=== PATIENT | female | born 1940 | race Caucasian/White ===

== ENCOUNTER → 2016-10-11 | Outpatient (CLI) | payer OTHER, BC ==
[~2016-10-11] MED LIST: BENZ1CAP90 PO; CEPH500C PO; CYCL0.052 OP; DTR/5 PO; METH-848 PO; MYCARDIS; OLME40TA30 PO; OXYB1TAB31 PO; PRLSR20 PO; RANI150T3 PO; SULF800T23 PO; TPZ5 PO
--- NOTE | 2016-10-11 15:22 | MAMMOGRAPHY REPORT ---
BILATERAL DIGITAL SCREENING MAMMOGRAM WITH CAD: 10/11/2016 CLINICAL HISTORY: Routine screening. Patient has no complaints. TECHNIQUE: Bilateral CC and MLO views were obtained. Current study was also evaluated with a Comput er Aided Detection (CAD) system. COMPARISON: Comparison is made to exams dated: 04/28/2015 mammogram, 09/30/2013 mammogram, 08/30/2012 mammogram, 07/12/2011 mammogram, 11/03/2009 mammogram, and 10/29/2009 mammogram - [facility]. BREAST COMPOSITION: The tissue of both breasts is heterogeneously dense, which may obscure small ma sses. FINDINGS: There is a possible cluster of microcalcifications in the 12:00 middle one third of the r ight breast, for which additional spot magnification views are recommended. There are questionable areas of architectural distortion in the lateral, middle and posterior right breast on the CC view f or which additional spot compression tomosynthesis views and possibly ultrasound are recommended. A 10 mm nodular asymmetry in the medial, posterior left breast on the CC view is increasingly conspic uous compared to prior exams. Additional spot compression tomosynthesis views and possibly ultrasou nd are recommended, this is thought to project superiorly on the MLO view. No other suspicious mass, architectural distortion or cluster of suspicious microcalcifications is s een bilaterally. IMPRESSION: ACR BI-RADS CATEGORY 0: INCOMPLETE EVALUATION: NEED ADDITIONAL IMAGING EVALUATION The questionable areas of architectural distortion in the lateral right breast, right breast possibl e clustered microcalcifications and nodular asymmetry in the medial posterior left breast need addit ional imaging evaluation. The patient will be called to schedule an appointment. Approximately 10% of breast cancers are not detected with mammography. A negative mammographic repor t should not delay biopsy if a clinically suggestive mass is present. Sallie Hood M.D. ay/:10/11/2016 14:52:09 Helicopter Repairer: Mckenzie COHEN(Hasmukh)(Earl)(GILBERT), [facility] letter sent: Addl Imaging 0 BI-RADS Code: ACR BI-RADS Category 0: Incomplete Evaluation: Need Additional Imaging Evaluation
== END | disposition home or self-care (01) ==
LOC: C.MAMM 13:24
PROVIDERS: ATTEND Nurse Practitioner Family
DX: Z12.31 Encounter for screening mammogram for malignant neoplasm of breast (principal); N64.9 Disorder of breast, unspecified

== ENCOUNTER → 2016-10-19 | Outpatient (CLI) | payer OTHER, BC ==
--- NOTE | 2016-10-19 14:11 | MAMMOGRAPHY REPORT ---
BILATERAL DIGITAL DIAGNOSTIC MAMMOGRAM TOMOSYNTHESIS AND TARGETED LEFT ULTRASOUND: 10/19/2016 CLINICAL HISTORY: Callback from screening mammogram for right breast calcifications, possible right breast architectural distortion, and left breast asymmetry. TECHNIQUE: Breast tomosynthesis in addition to standard 2D mammography was performed. Spot della yong bilateral CC and MLO 2-D and tomosynthesis images and spot magnification right cc and ML views were obtained. COMPARISON: Comparison is made to exams dated: 10/11/2016 mammogram, 04/28/2015 mammogram, 09/30/2013 mammogram, 08/30/2012 mammogram, 07/12/2011 mammogram, and 11/03/2009 mammogram - [facility]. BREAST COMPOSITION: The tissue of both breasts is heterogeneously dense, which may obscure small ma sses. FINDINGS: Spot magnification views of the right breast demonstrate grouped faint punctate and amorph ous calcifications in the right 12:00 breast, with extent measuring approximately 1.7 x 1.9 cm. On the spot compression MLO view there is possible associated architectural distortion at the site of t he calcifications (slice 35/66). The calcifications are indeterminate and stereotactic biopsy is re commended for further evaluation. The other previously described possible areas of architectural distortion in the right lateral breas t did not persist on the additional views, and are compatible with normal fibroglandular tissue. An asymmetry seen within the left medial posterior breast effaces to a baseline appearance on the spot compression views, with appearance of this region similar to prior exams including the 2014 and exams. Targeted ultrasound was performed of the left medial breast in the region of the mammographic asymme try, which shows sonographically normal tissue without evidence of a mass or other suspicious sonogr aphic abnormality. IMPRESSION: ACR BI-RADS CATEGORY 4: SUSPICIOUS, TARGETED ULTRASOUND ACR BI-RADS CATEGORY 4: SUSPICI OUS 1. Grouped faint calcifications in the right 12:00 breast with possible associated architectural di stortion. The calcifications are indeterminate and stereotactic biopsy is recommended for further e valuation. 2. The left medial breast asymmetry effaces to a baseline appearance on the additional views, witho ut corresponding sonographic abnormality evident. The asymmetry is benign and compatible with frieda l fibroglandular tissue. 3. Questionable areas of architectural distortion in the right lateral breast did not persist on th e additional views, and are benign and compatible with normal fibroglandular tissue. A phone call was made to the physician's office to confirm faxed results were received. The patient has been verbally notified of the results. She tentatively scheduled the biopsy before leaving the department. Approximately 10% of breast cancers are not detected with mammography. A negative mammographic repor t should not delay biopsy if a clinically suggestive mass is present. Kassidy Brand M.D. ah/:10/19/2016 12:18:44 Briquetter Operator: Radha COHEN(Hasmukh)(M), [facility] letter sent: Abnormal 4/5 BI-RADS Code: ACR BI-RADS Category 4: Suspicious Ultrasound BI-RADS: ACR BI-RADS Category 4: Suspic ious
== END | disposition home or self-care (01) ==
LOC: C.MAMM 10:09
PROVIDERS: ATTEND Nurse Practitioner Family
DX: N64.89 Other specified disorders of breast (principal); R92.0 Mammographic microcalcification found on diagnostic imaging of breast

== ENCOUNTER → 2016-10-24 | Outpatient (CLI) | payer OTHER, BC ==
--- NOTE | 2016-10-24 13:37 | Discharge Instructions ---
Discharge Instructions Procedure Procedure Date: Oct 24, 2016. Reason for visit: Right Calcifications. Discharge Discharge Date: Oct 24, 2016. Discharge Diagnosis: post right breast stereotactic guided biopsy Medications Restart Stopped Medication(s): May restart Aspirin today Instructions Activity Recommendations: Additional Limitations (see below) Return to School/Work: no limitations Recommended Home Diet: No Limitations Provider Instructions: ACTIVITY RECOMMENDATIONS: * No lifting, pushing, pulling or exercising the affected side for three days. RETURN TO SCHOOL/WORK: * You may return to work/school after the procedure, but do not perform any strenuous activities for 24 to 48 hours. MEDICATIONS: * Tylenol (two 325 mg) every four to six hours if needed for mild pain (if not allergic to Tylenol). DIET: * Resume previous diet. SPECIAL CARE INSTRUCTIONS: * Keep biopsy site dry for 24 hours. May shower after 24 hours, but do not soak (bathe) incision. * May remove Tegaderm (plastic patch) tomorrow AFTER showering. * Leave the steri-strips on for one week. Allow the steri-strips to fall off by themselves. If not off after one week, you may remove them. You may place a Bandaid crosswise over the strips, if desired. * Apply ice 10 minutes on and 10 minutes off as needed. * Wear a bra at bedtime to sleep more comfortably for 2-3 days. * Your referring physician should have the results after approximately 5 to 7 business days. * Call for unusual bleeding, fever, drainage, etc or if you have any questions call [phone] during normal business hours or after hours call Dr Hood, . FOLLOW UP VISIT: Follow-up with Referring Physician as scheduled. Allergies Coded Allergies: Celecoxib (Verified Allergy, Intermediate, HIVES, 06/26/09) Penicillins (Verified Allergy, Intermediate, HIVES, 06/26/09) Uncoded Allergies: BANANAS AND GRAPES -ASTHMA FLARE-UP (Allergy, Unknown, 07/04/02) N (Allergy, Unknown, 07/04/02) NO (Allergy, Unknown, 07/04/02) PCN-HIVES;CELEBREX-HIVES (Allergy, Unknown, 07/04/02) Areli Bernal Recommendations: Call your doctor if: * Temperature above 101 degrees * Pain not relieved by pain medicine ordered * There is increased drainage or redness from any incision * You have any unanswered questions or concerns. Your Doctors Instructions noted above were prepared by provider Sallie Hodo. Patient Signature Section: Patient Instructions Signature Page Alissa Ernst Patient (or Guardian) Signature/Date: I have read and understand the instructions given to me by my caregivers. Caregiver/RN/Doctor Signature/Date: The above-named patient and/or guardian has received patient instructions on this date. + Original Patient Signature Page (only) stays with chart. Please make copy for patient.
--- NOTE | 2016-10-24 16:02 | MAMMOGRAPHY REPORT ---
UNILATERAL RIGHT DIGITAL DIAGNOSTIC MAMMOGRAM: 10/24/2016 CLINICAL HISTORY: Status post stereotactic biopsy of an indeterminate cluster of microcalcifications with possible associated distortion in the 12:00 right breast. Please refer to the report from right breast stereotactic biopsy performed at the same time for full detail. IMPRESSION: POST PROCEDURE IMAGING FOR MARKER PLACEMENT Please refer to the report from right breast stereotactic biopsy performed at the same time for full detail. Approximately 10% of breast cancers are not detected with mammography. A negative mammographic report should not delay biopsy if a clinically suggestive mass is present. Sallie Hood M.D. ay/:10/24/2016 13:02:19 Senior Energy Analyst: Meredith COHEN(Hasmukh)(Earl), [facility] BI-RADS Code: Post Procedure Imaging For Marker Placement
--- NOTE | 2016-10-24 16:02 | MAMMOGRAPHY REPORT ---
THIS REPORT HAS BEEN AMENDED. AMENDMENT: 11/02/2016 Sallie Hood M.D. Pathology results from the stereotactic guided biopsy of clustered microcalcifications in the 12:00 r ight breast yielded an atypical ductal proliferation patible with atypical ductal hyperplasia. Adeno sis. No invasive carcinoma seen. Given the finding of atypia, surgical consultation and surgical ex cisional biopsy is recommended. STEREOTACTIC GUIDED BIOPSY RIGHT BREAST: 10/24/2016 CLINICAL HISTORY: 1.7 x 1.9 cm cluster of microcalcifications with possible associated distortion in the 12:00 right breast. Patient presents for stereotactic biopsy. COMPARISON: Comparison is made to exams dated: 10/19/2016 mammogram, 10/11/2016 mammogram, 04/28/2015 m ammogram, 09/30/2013 mammogram, 08/30/2012 mammogram, and 11/03/2009 ultrasound - [facility]. PATIENT CONSENT: After explaining the risks, benefits and alternatives of the procedure to the patien t, informed consent was obtained both verbally and in writing. Specific risks include: Bleeding, inf ection, puncture of adjacent structure, pain, nontarget biopsy, sampling error, metal allergy and med ication reaction. The patient initially thought she was here for a left breast biopsy. However I re viewed all of the diagnostic images obtained on 10/19/2016 which included both right and left views a nd reviewed read the diagnostic mammogram report from that date to confirm the right breast is seen i n tended target for biopsy. PROCEDURE DESCRIPTION: A time-out was performed and the right breast was confirmed as the site of bio psy. The patient was placed prone on the stereotactic biopsy table and the breast was placed in CC fr om above compression. A integrated pest management technician image was obtained that demonstrated the clustered microcalcifications in question. They are amenable to sterotactic biopsy. Then +15 and -15 stereo pair images were obt ained. The calcifications were targeted utilizing the coordinates obtained by the computer. The skin was prepped with Betadine. 1% Lidocaine with and without epinipherine was administered as local anes thesia. A small skin incision was made. Through the incision, the needle was inserted to the depth d etermined by the computer. 8 samples were obtained using a Phase [employer] 9-gauge vacuum-assisted biopsy device. The specimen radiograph demonstrated several business center representative microcalcifications, therefore, a metallic marker was placed at the biopsy site. There was no immediate complication. Hemostasis was achieved after several minutes of manual compression. The samples were sent to pathology in 1 approp riately labeled container given that calcifications were evident within nearly all of the core specim en. Postprocedure CC and ML views of the right breast were obtained. A new dumbbell shaped metallic bio psy marker and no significant hematoma is seen in the 12:00 middle to posterior right breast, at the site of the biopsied clustered microcalcifications. IMPRESSION: STEREOTACTIC GUIDED BIOPSY Status post right breast stereotactic guided biopsy of clustered microcalcifications in the 12:00 axi s, with biopsy marker placed at the site. The patient will receive notification of the biopsy results from her referring physician. Sallie Hood M.D. ay/:10/24/2016 13:48:50 Attending Technologist: Radha Molina RT(R)(M), [facility] Batter Out: Meredith COHEN(R)(Earl), [facility]
== END | disposition home or self-care (01) ==
LOC: C.MAMM 12:36
PROVIDERS: ATTEND Nurse Practitioner Family
DX: R92.1 Mammographic calcification found on diagnostic imaging of breast (principal); N60.91 Unspecified benign mammary dysplasia of right breast; N60.21 Fibroadenosis of right breast

== ENCOUNTER 2016-12-27 18:58 | Emergency (ER) | payer BC, OTHER ==
[~2016-12-27] VITALS: Ht 157.5 cm; Wt 87.4 kg
[~2016-12-27 18:58] MED LIST changes: -BENZ1CAP90 PO; -CYCL0.052 OP; -DTR/5 PO; -METH-848 PO; -OLME40TA30 PO; -OXYB1TAB31 PO; -RANI150T3 PO; -TPZ5 PO
[2016-12-27 19:04] VITALS: TEMP 36.6; Ht 157.5 cm; Wt 87.4 kg
[2016-12-27] MEDS ORDERED: OXYB5TAB74 PO (19:48)
[2016-12-27 19:51] LABS: ISTAT CREATININE 0.6 mg/dl (0.6-1.3); ISTAT HEMOGLOBIN 13.6 g/dl (12.0-16.0); ISTAT IONIZED CALCIUM 1.19 mmol/l (1.12-1.32)
[2016-12-27] MEDS ORDERED: OLME40TA30 PO (20:01)
[2016-12-27] MEDS ORDERED: METH-848 PO (20:01)
[2016-12-27] MEDS ORDERED: CYCL0.052 OP (20:01)
[2016-12-27] MEDS ORDERED: TPZ5 PO (20:01)
[2016-12-27] MEDS ORDERED: OXYB1TAB31 PO (20:01)
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
[2016-12-27 21:20] LABS: URINE APPEARANCE CLEAR (CLEAR); URINE BILIRUBIN NEG (NEG); URINE COLOR YELLOW; URINE EPITHELIAL CELL AUTO >30 /lpf (0-5); URINE NITRITE NEG (NEG); URINE SPECIFIC GRAVITY 1.016 (1.000-1.030); UROBILINOGEN NEG (NEG); ZZUR CULT IF INDIC CLEAN CATCH NO
[2016-12-27 21:21] LABS: MANUAL MICROSCOPIC REQUIRED? NO; REVIEW REQ? NO
[2016-12-27 21:24] VITALS: BP 152/92; PULSE 78; O2SAT 98
== END 2016-12-27 21:33 | disposition home or self-care (01) ==
LOC: C.EDB 19:00 → C.EDD 21:33
DX: Z04.3 Encounter for examination and observation following other accident (principal); V49.9XXA Car occupant (driver) (passenger) injured in unspecified traffic accident, initial encounter; J45.909 Unspecified asthma, uncomplicated; Z82.49 Family history of ischemic heart disease and other diseases of the circulatory system

== ENCOUNTER 2017-03-14 23:58 | Emergency (ER) | payer OTHER, BC ==
[~2017-03-14] VITALS: Ht 154.9 cm; Wt 88.6 kg
[~2017-03-14 23:58] MED LIST changes: -CEPH500C PO; +CYCL0.052 OP; +METH-848 PO; -MYCARDIS; +OLME40TA30 PO; +OXYB1TAB31 PO; -SULF800T23 PO; +TPZ5 PO
[2017-03-15 00:02] VITALS: TEMP 36.9; Ht 154.9 cm; Wt 88.6 kg
[2017-03-15] MEDS ORDERED: ASPIRIN 81 MG CHEW PO STA (00:17)
--- NOTE | 2017-03-15 00:32 | EMERGENCY ROOM VISIT NOTE ---
History Report prepared by Hugo: Una Llamas Under the Supervision of: Dr. Barbara Hunter M.D. First contact with patient: 00:07 Chief Complaint: CHEST PAIN Stated Complaint: CHEST PAIN INTO NECK History of Present Illness The patient is a 76 year old female who presents to the Emergency Room with complaints of persistent right sided chest pain starting around [id number]. The patient was eating a dinner at 10:30 PM of leftover clam chowder and ham sandwich when she started having sharp chest pain. The pain then started moving up into her right neck. The pain has not resolved. It is now less sharp. Her pain does not change with exertion. She notes she had similar pain several weeks ago which resolved quickly. She notes that she has been burping a lot. She denies any fever, arm pain, SOB, nausea, or diaphoresis. She denies any history of heart problems. It has been a long time since her last stress test. She does have a history of high blood pressure. She notes she has had a cough for several weeks which is now resolving. She still has her gallbladder. Source of History: patient Onset: [id number] Position: chest (right) Quality: sharp Timing: other (persistent) Associated Symptoms: No fevers, No diaphoresis, No SOB, No nausea Note: Pt reports burping. Review of Systems See HPI for pertinent positives & negatives. A total of 10 systems reviewed and were otherwise negative. Past Medical & Surgical Medical Problems: (1) Asthma (2) Cornea transplant recipient Surgical Problems: (1) History of bilateral knee replacement (2) History of (3) History of hysterectomy Family History FH: heart disease Hypertension Social History Smoking Status: Never Smoker Alcohol Use: occasionally Housing Status: lives alone Occupation Status: retired Current/Historical Medications Scheduled Cyclosporine (Ophth) (Restasis), 1 DROP OP BID Methimazole (Methimazole), 5 MG PO QAM Methimazole (Methimazole), 2.5 MG PO HS Olmesartan/Hctz (Benicar Hct 40/12.5), 0.5 TAB PO DAILY Omeprazole (Prilosec), 20 MG PO DAILY Oxybutynin Chloride (Oxybutynin Chloride ER), 5 MG PO DAILY Scheduled PRN Benzonatate (Tessalon Perles), 200 MG PO TID PRN for Cough Ranitidine Hcl (Zantac), 150 MG PO BID PRN for gastritis Allergies Coded Allergies: Celecoxib (Verified Allergy, Intermediate, HIVES, 03/15/17) Penicillins (Verified Allergy, Intermediate, HIVES, 03/15/17) Uncoded Allergies: BANANAS AND GRAPES -ASTHMA FLARE-UP (Allergy, Unknown, 07/04/02) Physical Exam Vital Signs Date Time Temp Pulse Resp B/P (MAP) Pulse Ox O2 Delivery O2 Flow Rate FiO2 03/15/17 01:46 80 16 137/71 96 Room Air 03/15/17 00:19 84 03/15/17 00:07 98 Room Air 03/15/17 00:02 36.9 93 17 173/91 96 Room Air Physical Exam Vital signs reviewed. General: Well-appearing female, in no significant distress. HEENT: No scleral icterus, PERRLA, neck supple. Atraumatic. Cardiovascular: Regular rate and rhythm, no extra sounds. Pulmonary: Clear to auscultation bilaterally, normal work of breathing. Abdomen: Obese abdomen. Soft, nontender, nondistended, positive bowel sounds. Musculoskeletal: Atraumatic, no peripheral edema. Neurologic: Patient awake alert and oriented x 3 Skin: Warm, dry, no rash Medical Decision & Procedures ER Provider Diagnostic Interpretation: X-ray results as stated below per interpretation by me: Chest X-ray: No focal lung consolidation. No failure. Normal mediastinal silhouette. Laboratory Results 03/15/17 00:20 Red Blood Count 4.23, Mean Corpuscular Volume 93.1, Mean Corpuscular Hemoglobin 31.0, Mean Corpuscular Hemoglobin Concent 33.2, Mean Platelet Volume 10.1, Neutrophils (%) (Auto) 54.2, Lymphocytes (%) (Auto) 32.8, Monocytes (%) (Auto) 7.9, Eosinophils (%) (Auto) 4.3, Basophils (%) (Auto) 0.6, Neutrophils # (Auto) 2.87, Lymphocytes # (Auto) 1.74, Monocytes # (Auto) 0.42, Eosinophils # (Auto) 0.23, Basophils # (Auto) 0.03 03/15/17 00:20 Test 03/15/17 00:20 03/15/17 02:07 White Blood Count 5.30 K/uL (4.8-10.8) Red Blood Count 4.23 M/uL (4.2-5.4) Hemoglobin 13.1 g/dL (12.0-16.0) Hematocrit 39.4 % (37-47) Mean Corpuscular Volume 93.1 fL (80-100) Mean Corpuscular Hemoglobin 31.0 pg (25-34) Mean Corpuscular Hemoglobin Concent 33.2 g/dl (32-36) Platelet Count 177 K/uL (130-400) Mean Platelet Volume 10.1 fL (7.4-10.4) Neutrophils (%) (Auto) 54.2 % Lymphocytes (%) (Auto) 32.8 % Monocytes (%) (Auto) 7.9 % Eosinophils (%) (Auto) 4.3 % Basophils (%) (Auto) 0.6 % Neutrophils # (Auto) 2.87 K/uL (1.4-6.5) Lymphocytes # (Auto) 1.74 K/uL (1.2-3.4) Monocytes # (Auto) 0.42 K/uL (0.11-0.59) Eosinophils # (Auto) 0.23 K/uL (0-0.5) Basophils # (Auto) 0.03 K/uL (0-0.2) RDW Standard Deviation 44.8 fL (36.4-46.3) RDW Coefficient of Variation 13.1 % (11.5-14.5) Immature Granulocyte % (Auto) 0.2 % Immature Granulocyte # (Auto) 0.01 K/uL (0.00-0.02) Anion Gap 7.0 mmol/L (3-11) Est Creatinine Clear Calc Drug Dose 73.3 ml/min Estimated GFR () 99.1 Estimated GFR (Non- 85.5 BUN/Creatinine Ratio 31.6 (10-20) Calcium Level 8.8 mg/dl (8.5-10.1) Total Bilirubin 0.3 mg/dl (0.2-1) Direct Bilirubin < 0.1 mg/dl (0-0.2) Aspartate Amino Transf (AST/SGOT) 13 U/L (15-37) Alanine Aminotransferase (ALT/SGPT) 26 U/L (12-78) Alkaline Phosphatase 80 U/L (45-117) Total Creatine Kinase 58 U/L (26-192) Creatine Kinase MB 1.2 ng/ml (0.5-3.6) Creatine Kinase MB Ratio 2.1 (0-3.0) Total Protein 6.5 gm/dl (6.4-8.2) Albumin 3.1 gm/dl (3.4-5.0) Bedside Troponin I < 0.030 ng/ml (0-0.045) Laboratory results per my review. Medications Administered Medications (Trade) Dose Ordered Sig/Pau Route Start Time Stop Time Status Last Admin Dose Admin Aspirin (Aspirin Chew) 324 mg NOW STAT PO 03/15/17 00:17 03/15/17 00:18 DC 03/15/17 00:30 324 MG Lidocaine HCl (Viscous Lidocaine 2% Soln) 10 ml NOW STAT PO 03/15/17 01:06 03/15/17 01:07 DC 03/15/17 01:12 10 ML Al Hydroxide/Mg Hydroxide (Maalox Susp) 30 ml NOW STAT PO 03/15/17 01:06 03/15/17 01:07 DC 03/15/17 01:11 30 ML ECG Indication: chest pain Rate (beats per minute): 90 Rhythm: normal sinus Findings: no acute ischemic change, no ectopy, other (possible previous inferior infarct) Comparison ECG Date: 22-Oct-2013 Change: no significant change ED Course 0010: Past medical records reviewed. The patient was evaluated in room B5. A complete history and physical examination was performed. 0017: Aspirin 324 mg PO. 0105: I reevaluated the patient. I discussed the results with her. She will have a repeat troponin in 1 hour. 0106: Maalox Susp 30 ml PO, Lidocaine HCl 10 ml PO. Medical Decision Differential diagnosis: Acute coronary syndrome, pulmonary embolus, aortic dissection, musculoskeletal pain, pneumonia, pleural effusion, pneumothorax This patient was evaluated and appeared to be in no significant distress. IV access was obtained and laboratory work was drawn. The patient was placed on the front desk monitor. Patient is found to be in a normal sinus rhythm. EKG reveals no evidence of acute ischemia. Chest x-ray is clear to my evaluation. Laboratory work reveals negative cardiac enzymes. The patient had been given aspirin 324 mg to chew initially. On my reevaluation, the patient continued to complain of some mild discomfort. She was given a GI cocktail and a repeat 90 minute troponin was performed. This test is negative. The patient states her pain has completely resolved. I suspect this may be gastritis/reflux secondary to regular use of NSAIDs and a late dinner. Patient will use Zantac 150 mg twice daily as needed and follow closely with her PCP this week for further cardiac testing. She will return to the ER for worsening of symptoms or any medical concerns. Medication Reconcilliation Current Medication List: was personally reviewed by me Blood Pressure Screening Patient's blood pressure: Elevated blood pressure Impression Primary Impression: Substernal precordial chest pain Scribe Attestation The scribe's documentation has been prepared under my direction and personally reviewed by me in its entirety. I confirm that the note above accurately reflects all work, treatment, procedures, and medical decision making performed by me. Departure Information Prescriptions Ranitidine Hcl (ZANTAC) 150 Mg Tab 150 MG PO BID Y for gastritis, #60 TAB Prov: Barbara Hunter M.D. 03/15/17 Referrals Char Chow, C.R.N.P. (PCP) Patient Instructions My [facility]
[2017-03-15 00:47] LABS: BASO % 0.6 %; BASO ABS # 0.03 K/uL (0-0.2); COMPLETE YES; EOS % 4.3 %; HEMATOCRIT 39.4 % (37-47); IG% 0.2 %; LYMPH % 32.8 %; LYMPH ABS # 1.74 K/uL (1.2-3.4); MEAN CELL VOLUME 93.1 fL (80-100); MEAN CORPUSCULAR HGB CONC 33.2 g/dl (32-36); MEAN PLATELET VOLUME 10.1 fL (7.4-10.4); MONO % 7.9 %; NEUT % 54.2 %; PLATELET COUNT 177 K/uL (130-400); RED BLOOD COUNT 4.23 M/uL (4.2-5.4)
[2017-03-15] MEDS ORDERED: LIDOCAINE HCL 2% VISC SOLN 20 ML UDC PO STA (01:06)
[2017-03-15] MEDS ORDERED: ALUMINUM/MAGNESIUM SUSP 30 ML UDC PO STA (01:06)
[2017-03-15 01:07] LABS: ALT/SGPT 26 U/L (12-78); BLOOD UREA NITROGEN 20 mg/dl (7-18); BUN/CREATININE RATIO 31.6 (10-20); CALCIUM 8.8 mg/dl (8.5-10.1); CARBON DIOXIDE 30 mmol/L (21-32); CHLORIDE 107 mmol/L (98-107); CREATININE 0.64 mg/dl (0.60-1.20); GLUCOSE 109 mg/dl (70-99); POTASSIUM 3.4 mmol/L (3.5-5.1); SODIUM 144 mmol/L (136-145)
[2017-03-15 01:11] LABS: ALKALINE PHOSPHATASE 80 U/L (45-117); AST/SGOT 13 U/L (15-37); CKMB/CK RATIO 2.1 (0-3.0)
[2017-03-15] MEDS ORDERED: BENZ1CAP90 PO (01:39)
[2017-03-15] MEDS ORDERED: RANI150T3 PO (02:31)
[2017-03-15 02:37] VITALS: BP 127/80; PULSE 70; O2SAT 98
--- NOTE | 2017-03-15 07:00 | DIAGNOSTIC IMAGING REPORT ---
SINGLE VIEW CHEST CLINICAL HISTORY: Atypical chest pain. FINDINGS: An AP, portable, upright chest radiograph is compared to study dated 12/27/2016. The examination is degraded by portable technique and patient rotation. The cardiomediastinal silhouette is unremarkable. Chronic interstitial thickening is similar to previous. There is minimal left basilar atelectasis. The lungs and pleural spaces are otherwise clear. No pneumothorax is seen. The skeletal structures are osteopenic. The bony thorax is grossly intact. Calcific tendinopathy is noted in the left shoulder. IMPRESSION: No acute cardiopulmonary abnormality. Electronically signed by: Jt Stiles M.D. 03/15/2017 6:59 AM Dictated Date/Time: 03/15/2017 6:58 AM
== END 2017-03-15 02:38 | disposition home or self-care (01) ==
LOC: C.EDB 23:59
DX: R07.2 Precordial pain (principal); J45.909 Unspecified asthma, uncomplicated; Z94.7 Corneal transplant status; Z96.653 Presence of artificial knee joint, bilateral; Z90.710 Acquired absence of both cervix and uterus; Z82.49 Family history of ischemic heart disease and other diseases of the circulatory system; Z79.899 Other long term (current) drug therapy; E66.9 Obesity, unspecified; Z68.36 Body mass index [BMI] 36.0-36.9, adult

== ENCOUNTER → 2017-06-29 | Outpatient (CLI) | payer OTHER, BC ==
[~2017-06-29] MED LIST changes: +BENZ1CAP90 PO; +RANI150T3 PO
--- NOTE | 2017-06-29 10:57 | DIAGNOSTIC IMAGING REPORT ---
SOFT TISS HEAD/NECK-THYROID CLINICAL HISTORY: 76 years-old Female with HX THYROID NODULE/HYPERTHYROIDISM. COMPARISON: Thyroid ultrasound 01/28/2009 TECHNIQUE: Multiple real time sonographic images of the thyroid were obtained accessing mcnulty scale appearance and color doppler flow. FINDINGS: MEASUREMENTS: Right lobe: 3.4 x 3.3 x 2.0 cm Left lobe: 7.3 x 3.6 x 3.6 cm Isthmus: 0.4 cm PARENCHYMA: The thyroid parenchymal echotexture is diffusely heterogeneous. NODULES: Multinodular goiter is noted with multiple areas of heterogeneous thyroid parenchyma seen. Multiple nodules on the right are seen, largest of which measures up to 1.9 cm within the midpole which appears spongiform and solid, predominantly isoechoic with internal vascularity. The largest nodule on the left within the lower pole measures up to 3.9 cm with ill-defined margins, predominantly isoechoic and also appears spongiform with internal vascularity. IMPRESSION: Multinodular heterogeneous appearing thyroid goiter as above. The above report was generated using voice recognition software. It may contain grammatical, syntax or spelling errors. Electronically signed by: Dheeraj Drake M.D. 06/29/2017 10:56 AM Dictated Date/Time: 06/29/2017 10:52 AM
== END | disposition home or self-care (01) ==
LOC: C.ULTR 10:09
PROVIDERS: ATTEND Nurse Practitioner Family
DX: E05.90 Thyrotoxicosis, unspecified without thyrotoxic crisis or storm (principal)

== ENCOUNTER → 2017-08-07 | Outpatient (CLI) | payer OTHER, BC | END | disposition home or self-care (01) | LOC: C.MAMM 08:55 | PROVIDERS: ATTEND Nurse Practitioner Family | DX: M85.89 Other specified disorders of bone density and structure, multiple sites (principal) ==

== ENCOUNTER 2021-02-07 12:08 | Inpatient (IN) ==
[2021-02-07 13:29] LABS: Basophils # (auto) 0.02 K/uL (0-0.2); Basophils % (auto) 0.5 %; Eosinophils # (auto) 0.07 K/uL (0-0.5); Eosinophils % (auto) 1.6 %; Hematocrit (blood only) 41.8 % (37-47); Hemoglobin 13.9 g/dL (12.0-16.0); Immature Granulocytes # (auto) 0.02 K/uL (0.00-0.02); Immature Granulocytes % (auto) 0.5 %; Lymphocytes # (auto) 0.71 K/uL (1.2-3.4); Lymphocytes % (auto) 16.7 %; Mean Corpuscular Hemoglobin 30.3 pg (25-34); Mean Corpuscular Hgb Conc 33.3 g/dL (32-36); Mean Corpuscular Volume 91.1 fL (80-100); Monocytes # (auto) 0.51 K/uL (0.11-0.59); Neutrophils # (auto) 2.93 K/uL (1.4-6.5); Neutrophils % (auto) 68.7 %; Platelet Count 160 K/uL (130-400); RDW Coefficient of Variation 13.4 % (11.5-14.5); RDW Standard Deviation 44.5 fL (36.4-46.3); Red Blood Count 4.59 M/uL (4.2-5.4); White Blood Count 4.26 K/uL (4.8-10.8)
[2021-02-07] MEDS ORDERED: STAT IV Infusion **Titration per Protocol STA (13:38)
[2021-02-07] MEDS ORDERED: dilTIAZem HCl 5 MG/ML 5 ML VIAL IV STA (13:38)
[2021-02-07 13:42] LABS: INR 1.1 (0.9-1.1); Partial Thromboplastin Ratio 0.8; Partial Thromboplastin Time 20.5 Seconds (21.0-31.0)
--- NOTE | 2021-02-07 13:45 | Emergency Department Note ---
History of Present Illness General Chief complaint: Swelling/Edema to Extremity Stated complaint: EDEMA IN BOTH LEGS/CONFUSION TO WHERE SHE IS Time Seen by Provider: 02/07/21 13:12 History of Present Illness Maximum Pain Intensity: 0 80-year-old female presents to the ED with a chief complaint of pedal edema. The patient presents with the son. The son reports that they were at a tailgate yesterday going to the football game and noticed the patient's edema in her legs. The patient also seemed a little more confused to family and friends yesterday as well. The patient denies any specific symptoms. No chest pains or shortness of breath. No exertional symptoms. The son states that she did not have pedal edema at the end of last month when he drove her home from [place]. Home Medications Medication Instructions Recorded Confirmed Type alendronate 35 mg tablet 35 mg PO WK 02/07/21 02/07/21 History clindamycin HCl 300 mg capsule 600 mg PO DAILY PRN 02/07/21 02/07/21 History fluorometholone 0.1 % eye 1 drp OPB DAILY 02/07/21 02/07/21 History drops,suspension ibuprofen 200 mg tablet (Advil) 200 mg PO Q6H PRN 02/07/21 02/07/21 History loperamide 2 mg capsule 2 mg PO Q4H PRN 02/07/21 02/07/21 History methimazole 5 mg tablet 7.5 mg PO DAILY 02/07/21 02/07/21 History nystatin-triamcinolone 100,000 1 applic TOPICAL DAILY 02/07/21 02/07/21 History unit/g-0.1 % topical cream olmesartan 40 mg tablet 20 mg PO DAILY 02/07/21 02/07/21 History Allergies Allergy/AdvReac Type Severity Reaction Status Date / Time celecoxib Allergy Intermediate HIVES Verified 02/07/21 14:22 Penicillins Allergy Intermediate HIVES Verified 02/07/21 14:22 banana Allergy Unknown Hives Verified 02/07/21 14:22 grape Allergy Unknown Hives Verified 02/07/21 14:22 Past Med/Surg History Medical History (Updated 02/07/21 @ 15:44 by Emmanuel Carlos DO) Asthma A CHILD Enlarged thyroid Hypertension Osteoarthritis Overactive bladder Surgical History History of biopsy History of cataract surgery History of section X 2 History of colonoscopy History of corneal transplant BL History of knee replacement procedure of left knee History of knee replacement procedure of right knee History of lumpectomy X 2 (PRECANCEROUS) History of total abdominal hysterectomy and bilateral salpingo-oophorectomy Social History Smoking Status: Never smoker Second Hand Exposure: No; Hx Alcohol Use: Yes Hx Substance Use: No Preferred Language: Italian Communication Ability: Effective Game Tester Required: No Beliefs That Will Affect Care: None Current Living Situation: Alone Feels Safe at Home: Yes Assistive Devices: Glasses Review of Systems A total of 10 systems reviewed and were otherwise negative Physical Exam Vital Signs Vital Signs - 24 hr 02/07/21 12:20 02/07/21 12:53 02/07/21 13:00 Temperature 36.7 C Temperature Source Temporal Artery Scan Pulse Rate 97 H 146 H 155 H Pulse Rate from SpO2 Sensor 133 H Respiratory Rate 18 26 H 22 Blood Pressure 137/77 145/105 H 126/92 Blood Pressure Mean 97 118 103 Pulse Oximetry 99 87 L Oxygen Delivery Method Room Air Sepsis Recent Fever Within 48 Hours No Sepsis New/Unexplained Change in Mental Status No Sepsis Action Taken by Nursing No Action Required 02/07/21 13:30 02/07/21 14:01 Temperature Temperature Source Pulse Rate 142 H 109 H Pulse Rate from SpO2 Sensor 117 H Respiratory Rate 24 19 Blood Pressure 140/108 H 118/77 Blood Pressure Mean 118 90 Pulse Oximetry 97 Oxygen Delivery Method Sepsis Recent Fever Within 48 Hours Sepsis New/Unexplained Change in Mental Status Sepsis Action Taken by Nursing CONSTITUTIONAL/VITAL SIGNS: Reviewed / noted above. GENERAL: Non-toxic in appearance. INTEGUMENTARY: Warm, dry, and [place]. HEAD: Normocephalic. EYES: without scleral icterus or trauma. ENT/OROPHARYNX: clear and moist. LYMPHADENOPATHY/NECK: Is supple without lymphadenopathy or meningismus. RESPIRATORY: Clear to auscultation bilaterally. No increased work of breathing. CARDIOVASCULAR: Rapid rate irregular rhythm GI/ABDOMEN: Soft and nontender. No organomegaly or pulsatile mass. EXTREMITIES: Warm and well perfused. Positive pedal edema in the lower extremities below the knees. BACK: No CVA tenderness. NEUROLOGICAL: Intact without focal deficits. Speaks clearly. Some forgetfulness about the details of again yesterday. No pronator drift. Normal cerebellar testing. Normal strength in all 4 extremities. No facial droop. PSYCHIATRIC: normal affect. MUSCULOSKELETAL: Normally developed with good muscle tone. TRIAGE NURSING DOCUMENTATION REVIEWED. Course Administered Medications Diltiazem HCl 125 mg/ Dextrose 125 mls @ 5 mls/hr IV .Q24H [facility]; Protocol Stop: 03/09/21 13:44 Last Admin: 02/07/21 14:49 Dose: 5 mg/hr, 5 mls/hr Documented by: [id number] Cosigned by: [id number] Discontinued Medications Diltiazem HCl (Diltiazem Hcl 5 Mg/Ml 5 Ml Vial) 20 mg IV NOW STA Stop: 02/07/21 13:39 Last Admin: 02/07/21 13:49 Dose: 20 mg Documented by: [id number] Cosigned by: [id number] Critical Care Time Critical Care Time: Yes Total Critical Care Time: 30 I have personally spent 30 minutes of critical care time in the direct management of this patient. This includes bedside care, interpretation of diagnostic studies, and testing, discussion with consultants, patient, and family members, and other required patient management activities. This 30 minutes is in excess of all separately billable procedures. Medical Decision Making Differential Diagnosis Differential includes acute coronary syndrome, myocardial infarction, CVA, TIA, anemia, infection, pneumonia, UTI, pyelonephritis, poor nutrition, dehydration, electrolyte disturbance,hypoglycemia. Medical Records Attestation: I reviewed the patient's medical records. Home Medications Current Medication List: was personally reviewed by me Laboratory Data Attestation: I reviewed the patient's lab results. Result diagrams: 02/07/21 13:21 02/07/21 13:21 Lab Results 02/07/21 02/07/21 02/07/21 Range/Units 13:21 13:21 13:21 WBC 4.26 L (4.8-10.8) K/uL RBC 4.59 (4.2-5.4) M/uL Hgb 13.9 (12.0-16.0) g/dL Hct 41.8 (37-47) % MCV 91.1 (80-100) fL MCH 30.3 (25-34) pg MCHC 33.3 (32-36) g/dL RDW Std Deviation 44.5 (36.4-46.3) fL RDW Coeff of Curtis 13.4 (11.5-14.5) % Plt Count 160 (130-400) K/uL MPV 12.0 H (7.4-10.4) fL Immature Gran % (Auto) 0.5 % Neut % (Auto) 68.7 % Lymph % (Auto) 16.7 % [place] % (Auto) 12.0 % Eos % (Auto) 1.6 % Baso % (Auto) 0.5 % Neut # (Auto) 2.93 (1.4-6.5) K/uL Lymph # (Auto) 0.71 L (1.2-3.4) K/uL [place] # (Auto) 0.51 (0.11-0.59) K/uL Eos # (Auto) 0.07 (0-0.5) K/uL Baso # (Auto) 0.02 (0-0.2) K/uL Immature Gran # (Auto) 0.02 (0.00-0.02) K/uL PT 11.0 (9.0-12.0) Seconds INR 1.1 (0.9-1.1) APTT 20.5 L (21.0-31.0) Seconds PTT Ratio 0.8 Sodium 144 (136-145) mmol/L Potassium 3.8 (3.5-5.1) mmol/L Chloride 108 H (98-107) mmol/L Carbon Dioxide 25 (21-32) mmol/L Anion Gap 11.0 (3-11) BUN 23 H (7-18) mg/dl Creatinine 0.60 (0.6-1.2) mg/dl Est Cr Clr Drug Dosing 63.8 ml/min Est GFR ( Amer) 98.4 ml/min Est GFR (Non-Af Amer) 84.9 ml/min BUN/Creatinine Ratio 39.2 H (10-20) Glucose 106 H (70-99) mg/dl Calcium 9.5 (8.5-10.1) mg/dl Total Bilirubin 0.6 (0.2-1) mg/dl AST 43 H (15-37) U/L ALT 84 H (12-78) U/L Alkaline Phosphatase 68 (45-117) U/L Troponin I < 0.015 (0-0.045) ng/ml Total Protein 6.0 L (6.4-8.2) gm/dl Albumin 3.0 L (3.4-5.0) gm/dl Globulin 3.0 (2.5-4.0) gm/dl Albumin/Globulin Ratio 1.0 (0.9-2) TSH (0.300-4.500) uIu/ml Free T4 (0.8-1.6) ng/dl COVID-19 Eval Order SARS-CoV-2 (PCR) (Negative) 02/07/21 02/07/21 02/07/21 Range/Units 13:21 14:20 14:20 WBC (4.8-10.8) K/uL RBC (4.2-5.4) M/uL Hgb (12.0-16.0) g/dL Hct (37-47) % MCV (80-100) fL MCH (25-34) pg MCHC (32-36) g/dL RDW Std Deviation (36.4-46.3) fL RDW Coeff of Curtis (11.5-14.5) % Plt Count (130-400) K/uL MPV (7.4-10.4) fL Immature Gran % (Auto) % Neut % (Auto) % Lymph % (Auto) % [place] % (Auto) % Eos % (Auto) % Baso % (Auto) % Neut # (Auto) (1.4-6.5) K/uL Lymph # (Auto) (1.2-3.4) K/uL [place] # (Auto) (0.11-0.59) K/uL Eos # (Auto) (0-0.5) K/uL Baso # (Auto) (0-0.2) K/uL Immature Gran # (Auto) (0.00-0.02) K/uL PT (9.0-12.0) Seconds INR (0.9-1.1) APTT (21.0-31.0) Seconds PTT Ratio Sodium (136-145) mmol/L Potassium (3.5-5.1) mmol/L Chloride (98-107) mmol/L Carbon Dioxide (21-32) mmol/L Anion Gap (3-11) BUN (7-18) mg/dl Creatinine (0.6-1.2) mg/dl Est Cr Clr Drug Dosing ml/min Est GFR ( Amer) ml/min Est GFR (Non-Af Amer) ml/min BUN/Creatinine Ratio (10-20) Glucose (70-99) mg/dl Calcium (8.5-10.1) mg/dl Total Bilirubin (0.2-1) mg/dl AST (15-37) U/L ALT (12-78) U/L Alkaline Phosphatase (45-117) U/L Troponin I (0-0.045) ng/ml Total Protein (6.4-8.2) gm/dl Albumin (3.4-5.0) gm/dl Globulin (2.5-4.0) gm/dl Albumin/Globulin Ratio (0.9-2) TSH < 0.005 L (0.300-4.500) uIu/ml Free T4 2.63 H (0.8-1.6) ng/dl COVID-19 Eval Order Covid19 at [facility] SARS-CoV-2 (PCR) NEGATIVE (Negative) Imaging Data Radiologist's Impression: Chest X-Ray 02/07/21 13:01 XR chest 1V portable CLINICAL HISTORY: Chest Pain COMPARISON STUDY: March 15, 2017 FINDINGS: No pneumothorax. No pleural effusion. Lung volumes are increased with flattening of right and left hemidiaphragm. Ill-defined hazy opacities are seen at bilateral mid to lower lungs. Cardiac silhouette is within upper limits of normal. Aorta is calcified. No significant pulmonary vascular congestion.. Osseous structures: Osteopenia. Mild degenerative changes of the spine. IMPRESSION: 1. Ill-defined hazy opacities at bilateral lower lungs, might represent infiltrative lesions or pneumonia. 2. Hyperinflation. ACT 112: Negative or not required by law. The above report was generated using voice recognition software. It may contain grammatical, syntax or spelling errors. Electronically signed by: Veronica Byers DO 02/07/2021 1:[address] 02/07/21 13:41 CT head/brain wo con CLINICAL HISTORY: forgetfulness, new onset afib COMPARISON STUDY: No previous studies for comparison. TECHNIQUE: Axial CT of the brain is performed from the vertex to the skull base. IV contrast was not administered for this examination. A dose lowering technique was utilized adhering to the principles of ALARA. CT DOSE: 918.33 mGy.cm FINDINGS: No intra or extra-axial mass lesions are visualized. There is no CT evidence of acute cortical infarction. There is no evidence of midline shift. There is no acute hemorrhage. No acute depressed calvarial fractures are visualized. There are minimal patchy white matter hypodensities likely on a small vessel basis. Mild atrophic changes of brain parenchyma are seen and associated with ex vacuo dilatation of ventricles. There is no evidence of acute sinusitis. Questionable focal area of gas collection is seen within soft tissue overlying right maxillary sinus (3/3). Also there are multiple small foci of gas collection are seen within cranial base. IMPRESSION: No acute intracranial hemorrhage, no midline shift or space occupying lesions. No acute depressed skull fractures. Few focal areas of gas collection at the cranial base and within soft tissue overlying right maxillary sinus. Please correlate this findings with prior history of trauma. Further evaluation with maxillofacial CT might be considered. ACT 112: Negative or not required by law. The above report was generated using voice recognition software. It may contain grammatical, syntax or spelling errors. Electronically signed by: Veronica Byers DO 02/07/2021 2:42 PM ECG Data Attestation: I personally reviewed and interpreted this ECG as follows: Additional Comments: Twelve-lead EKG: Per my interpretation telemetry there is atrial fibrillation at a rate of 140. No ST elevation. No PVCs. Normal QTC. MDM Narrative .Patient presents with a complaint of pedal edema but was found to be in A. fib with RVR. She has had a little bit of recent confusion as well. No history of A. fib and no anticoagulation use. Other than her tachycardia, vital signs are stable. CBC and chemistry panel was relatively unremarkable. BUN was 23. There is a mild transaminitis. Troponin was negative. EKG shows A. fib with RVR at a rate around 140. The patient's troponin is negative. TSH is low and free T4 is 2.63 which is slightly elevated. She does not take medication for her thyroid. The patient was noted be diltiazem the bolus. Heart rate did improve somewhat this. She was also given a heparin drip. She will be seen by the hospitalist for further inpatient evaluation and care. Impression & Plan Atrial fibrillation with RVR Discharge Plan Visit Data Chief Complaint: Swelling/Edema to Extremity Stated Complaint: EDEMA IN BOTH LEGS/CONFUSION TO WHERE SHE IS ED Provider: Emmanuel Carlos Discharge Problem: Atrial fibrillation with RVR Patient Disposition: Admitted As Inpatient Forms Stand Alone Forms: [facility] Prescriptions Prescriptions: No Action clindamycin HCl 300 mg capsule 600 mg PO DAILY PRN (Reason: dental appointments) RF: 0 loperamide [Imodium] 2 mg Capsule 2 mg PO Q4H PRN (Reason: Diarrhea) RF: 0 alendronate 35 mg tablet 35 mg PO WK RF: 0 fluorometholone 0.1 % drops,suspension 1 drp OPB DAILY RF: 0 nystatin-triamcinolone 100,000-0.1 unit/g-% cream 1 applic TOPICAL DAILY RF: 0 ibuprofen [Advil] 200 mg Tablet 200 mg PO Q6H PRN (Reason: Pain) RF: 0 methimazole 5 mg tablet 7.5 mg PO DAILY RF: 0 olmesartan 40 mg Tablet 20 mg PO DAILY RF: 0 Referrals Referrals: Char Chow CRNP [Primary Care Provider] -
[2021-02-07 13:57] LABS: Alanine Aminotransferase 84 U/L (12-78); Aspartate Aminotransferase 43 U/L (15-37); BUN Creatinine Ratio 39.2 (10-20); Blood Urea Nitrogen 23 mg/dl (7-18); Calcium 9.5 mg/dl (8.5-10.1); Carbon Dioxide 25 mmol/L (21-32); Chloride 108 mmol/L (98-107); Creatinine Clr Calc Pharmacy 63.8 ml/min; Est GFR (African American) 98.4 ml/min; Est GFR (Non-African American) 84.9 ml/min; Glucose 106 mg/dl (70-99); Potassium 3.8 mmol/L (3.5-5.1); Sodium 144 mmol/L (136-145)
--- NOTE | 2021-02-07 13:57 | XRay Report ---
XR chest 1V portable CLINICAL HISTORY: Chest Pain COMPARISON STUDY: March 15, 2017 FINDINGS: No pneumothorax. No pleural effusion. Lung volumes are increased with flattening of right and left hemidiaphragm. Ill-defined hazy opacities are seen at bilateral mid to lower lungs. Cardiac silhouette is within upper limits of normal. Aorta is calcified. No significant pulmonary vascular congestion.. Osseous structures: Osteopenia. Mild degenerative changes of the spine. IMPRESSION: 1. Ill-defined hazy opacities at bilateral lower lungs, might represent infiltrative lesions or pneu monia. 2. Hyperinflation. ACT 112: Negative or not required by law. The above report was generated using voice recognition software. It may contain grammatical, syntax o r spelling errors. Electronically signed by: Veronica Byers DO 02/07/2021 1:56 PM
[2021-02-07 14:02] LABS: Alkaline Phosphatase 68 U/L (45-117); Bilirubin,Total 0.6 mg/dl (0.2-1); Troponin I < 0.015 ng/ml (0-0.045)
[2021-02-07 14:14] LABS: Thyroid Stimulating Hormone < 0.005 uIu/ml (0.300-4.500)
[2021-02-07 14:26] LABS: T4 Free Thyroxine 2.63 ng/dl (0.8-1.6)
--- NOTE | 2021-02-07 14:43 | CT Scan Report ---
CT head/brain wo con CLINICAL HISTORY: forgetfulness, new onset afib COMPARISON STUDY: No previous studies for comparison. TECHNIQUE: Axial CT of the brain is performed from the vertex to the skull base. IV contrast was not administered for this examination. A dose lowering technique was utilized adhering to the principles of ALARA. CT DOSE: 918.33 mGy.cm FINDINGS: No intra or extra-axial mass lesions are visualized. There is no CT evidence of acute cortical infarc tion. There is no evidence of midline shift. There is no acute hemorrhage. No acute depressed calvar ial fractures are visualized. There are minimal patchy white matter hypodensities likely on a small vessel basis. Mild atrophic changes of brain parenchyma are seen and associated with ex vacuo dilatation of ventric les. There is no evidence of acute sinusitis. Questionable focal area of gas collection is seen within soft tissue overlying right maxillary sinus (3/3). Also there are multiple small foci of gas collection are seen within cranial base. IMPRESSION: No acute intracranial hemorrhage, no midline shift or space occupying lesions. No acute depressed skull fractures. Few focal areas of gas collection at the cranial base and within soft tissue overlying right maxillary sinus. Please correlate this findings with prior history of tra lorraine. Further evaluation with maxillofacial CT might be considered. ACT 112: Negative or not required by law. The above report was generated using voice recognition software. It may contain grammatical, syntax o r spelling errors. Electronically signed by: Veronica Byers DO 02/07/2021 2:42 PM
[2021-02-07] MEDS: dilTIAZem HCL 125 MG in DEXTROSE 5% 100 ML IV SCH ×2 (14:49→23:37)
[2021-02-07] MEDS ORDERED: Heparin IV Adult Wt-Based Standard *NO* Bolus Protocol ONE (14:51)
[2021-02-07] MEDS ORDERED: HEPARIN SODIUM/DEXTROSE 25,000 UNITS/500 ML BAG IV SCH (15:15)
[2021-02-07 16:21] LABS: Magnesium 1.8 mg/dl (1.8-2.4)
--- NOTE | 2021-02-07 16:25 | History & Physical Report ---
Date of Service February 07, 2021 Assessment & Plan (1) Atrial fibrillation with RVR: Plan: -New onset A. fib with RVR -Suspect secondary uncontrolled hyperthyroidism (given noncompliance) -For rate control, continue Cardizem drip as already started in the ED. I have asked nursing staff to increase to 10 mg/HR given rate remains elevated -We will start oral beta-blockade (discussed with Dr. Chase who suggests metoprolol 25 mg every 6 hours and can be transitioned to twice daily dosing upon discharge based on requirement needed while in house) -Cardizem drip to be titrated per protocol -Start Lovenox with plan to transition to DOAC for [id number] 2 score=5 -We will obtain echocardiogram to assess LV function -We will need to see cardiology as an outpatient for further cardiac evaluation but uncontrolled A. fib likely secondary to current hyperthyroid state and medical noncompliance (see below) -We will cycle out cardiac enzymes (2) Hyperthyroidism: Plan: -Patient admits to poor compliance (mostly due to mild dementia and failing to remember to take her medications) -I did reach out to Dr. Rosario (endo). Although not currently highly suspicious for thyroid stormpatient at risk for this -His recommendations are for increasing Tapazole to 7.5 mg twice daily X 1 month and then transitioning back to 7.5 mg once daily. -He would gladly see her as an outpatient -Lengthy discussion with patient and family regarding importance of compliance. Goals per patient and family are for discharge back to home. They will help provide additional care. Daughter lives across the street. 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 (3) CHF (congestive heart failure): Plan: -Likely secondary to #1 -We will give 1 dose of IV Lasix now and an additional dose in the a.m. Subsequent doses may be required -We will obtain a BNP -Patient not hypoxic. Symptoms more right-sided (4) Transaminitis: Plan: -Likely due to passive venous congestion from right-sided CHF -Follow-up labs in the a.m. to trend (5) Dementia: Plan: -Progressive -Lengthy discussion with son regarding wishes. Goal is for patient to be discharged back to home when medically ready. They will help provide additional services as daughter lives across the street. Lengthy discussion with patient and son regarding importance of medication compliance and what can be done to help with this (pill marine [employer] ground task force planners, blister pack from pharmacy, visiting nurses). They are on board to these changes (6) HTN (hypertension): Plan: -Hold Benicar as BP may not tolerate addition of beta-blockade and Lasix. May need discontinued altogether Plan: Plan of care discussed with Dr. Chase History of Present Illness Chief Complaint: edema of her LE and slightly increased confusion Primary Care Provider: LUIS FERNANDO Flower Mrs. Ernst is an 80 y/o WF with a PMHx of mild dementia, HYPERthyroidism, HTN and OA. She presented to the ED for evaluation of edema of the LE. She is a limited historian to detail. Son at bedside and reports that family noted increased edema of her legs lastnight. Patient unable to determine how long this has been ongoing REports a dry cough and intermittent dizziness but denies F/C, CP, palpitations/cardiac awareness, SOB, orthopnea, PND, abd pain, dysuria, hematuria, frequency, diarrhea. W/U in the ED revealed New onset A.Fib with RVR (155). BP stable 127/73 Her troponin was negative and her TSH was LOW at <0.015 with an elevated Free T4 at 2.63. AST/ALT slightly elevated (43/84). The rest of her lab data was unr emarkable. UA not grossly infected. CXR showing haziness in the bases. CT of the head nonacute. COVID negative Patient was given 20mg bolus IV Cardizem and subsequently started on a continuous gtt at 5mg/hr. When evaluated by myself, HR 112-134. Upon further questioning (regarding her thyroid function studies)patient uncertain if she is taking her medication daily. Admits that she "probably is not". Son able to pull up her medication log from [facility] in the last she had her Tapazole filled was August of this year. Allergies Allergy/AdvReac Type Severity Reaction Status Date / Time banana Allergy Intermediate Hives Verified 02/07/21 18:48 celecoxib Allergy Intermediate HIVES Verified 02/07/21 14:22 grape Allergy Intermediate Hives Verified 02/07/21 18:48 Penicillins Allergy Intermediate HIVES Verified 02/07/21 14:22 Home Medications Medication Instructions Recorded Confirmed Type alendronate 35 mg tablet 35 mg PO WK 02/07/21 02/07/21 History clindamycin HCl 300 mg capsule 600 mg PO DAILY PRN 02/07/21 02/07/21 History fluorometholone 0.1 % eye 1 drp OPB DAILY 02/07/21 02/07/21 History drops,suspension ibuprofen 200 mg tablet (Advil) 200 mg PO Q6H PRN 02/07/21 02/07/21 History loperamide 2 mg capsule 2 mg PO Q4H PRN 02/07/21 02/07/21 History methimazole 5 mg tablet 7.5 mg PO DAILY 02/07/21 02/07/21 History nystatin-triamcinolone 100,000 1 applic TOPICAL DAILY 02/07/21 02/07/21 History unit/g-0.1 % topical cream olmesartan 40 mg tablet 20 mg PO DAILY 02/07/21 02/07/21 History Past Med/Surg History Medical History (Updated 02/07/21 @ 17:03 by Zoie Reeves PA-C) Asthma A CHILD Dementia Enlarged thyroid HTN (hypertension) Hypertension Hyperthyroidism Osteoarthritis Overactive bladder Surgical History History of biopsy History of cataract surgery History of section X 2 History of colonoscopy History of corneal transplant BL History of knee replacement procedure of left knee History of knee replacement procedure of right knee History of lumpectomy X 2 (PRECANCEROUS) History of total abdominal hysterectomy and bilateral salpingo-oophorectomy Social History Smoking Status: Never smoker Second Hand Exposure: No; Hx Alcohol Use: Yes Hx Substance Use: No Preferred Language: [place] Communication Ability: Effective Energy Broker Required: No Beliefs That Will Affect Care: None Current Living Situation: Alone Other Information That Helps Us Care for You: No Feels Safe at Home: Yes Safety Concerns: Feels Safe At This Time Assistive Devices: Glasses Review of Systems Review of Systems: Patient vocalizes no real complaints or concerns. Aware that she is having edema of the lower extremities but not a real concern for her. Admits to intermittent dizziness and a dry cough but otherwise, denies fevers, chills, headache, nasal congestion, sore throat, chest pain, palpitations, shortness of breath, orthopnea, PND, abdominal pain, nausea, vomiting, dysuria, hematuria, urinary frequency. Back pain, joint pain or swelling. Easy bruising or bleeding, polydipsia, polyuria, polyphagia. Heat or cold intolerance, uncontrolled anxiety. Physical Exam Physical Exam: General: Resting comfortably in her hospital bed. She does not appear ill or toxic. NAD. HEENT: Head is AT/NC buccal mucosa is moist and pink Neck: No JVD. + hepatojugular reflex Cardiac: Irregularly irregular with current rate of 124 bpm Lungs: Speaking full sentences on ambient air. Breathing nonlabored. Bibasilar crackles noted Abdomen: Normoactive X4. Soft and nontender in all quadrants. + Hepatojugular reflex Extremities: +1 pitting edema of the bilateral lower extremities Neuro: Oriented to self, place, and somewhat to situation. On oriented to time. Son reports this is baseline. Cranial nerves II through XII are grossly intact no focal neuro deficits Skin: No obvious skin lesions or rashes Psych: Appropriate affect pleasant and cooperative Results & Data Results & Data ([facility]) Vital Signs (Past 12 Hours) Vital Signs Temp Pulse Resp BP Pulse Ox 02/07/21 15:40 111 H 25 H 98 02/07/21 15:33 121 H 21 97 02/07/21 15:00 117 H 18 105/76 95 02/07/21 14:40 105 H 20 02/07/21 14:32 117 H 27 H 02/07/21 14:01 109 H 19 118/77 97 02/07/21 13:30 142 H 24 140/108 H 02/07/21 13:00 155 H 22 126/92 87 L 02/07/21 12:53 146 H 26 H 145/105 H 02/07/21 12:20 36.7 C 97 H 18 137/77 99 Laboratory Results 02/07/21 13:21 02/07/21 13:21 TSH: <0.005 Free T4: 2.63 Total bilirubin: 0.60 AST: 43 ALT: 84 Covid test: Negative Diagnostic Findings CXR: IMPRESSION: 1. Ill-defined hazy opacities at bilateral lower lungs, might represent infiltrative lesions or pneumonia. 2. Hyperinflation. CT of the head: IMPRESSION: No acute intracranial hemorrhage, no midline shift or space occupying lesions. No acute depressed skull fractures. Few focal areas of gas collection at the cranial base and within soft tissue overlying right maxillary sinus. Please correlate this findings with prior history of trauma. Further evaluation with maxillofacial CT might be considered. 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 I verified all novak points and agree with Laura Reeves PA-C with the following exceptions and/or additions: 80 year old female with leg edema and confusion over last 48 hours. Possible underlying short term memory loss but much worse in last 48 hours. No infective symptoms from history. In ER found to be in a. fib with RVR. O/E 1+ pitting edema b/l LE equal b/l, Chest, crackles at bases, HS no murmurs, tachycardic irregularly irregular. A/P New onset a. fib RVR - TTE, metoprolol 25mg PO q6h, wean off diltiazem drip as able, anticoagulation with Lovenox during inpatient stay, switch to Eliquis on discharge Hyperthyroidism - agree presentation not consistent with thyroid storm as patient stable and no precipitating event (patient just not taking her medications). Increasing methimazole as above. Acute congestive heart failure with unknown ejection fraction - TTE, suspect rate related Acute metabolic encephalopathy - confusion for last 48 hours ?related to hyperthyroid state, if persistent consider MRI brain, no infective source found PG Care Time/CCT Total # of Minutes Spent Total Time Spent with Patient: Total time spent is greater than 50% in coordination of care (as documented) at patient's floor/unit and/or counseling patient: [place] [address] Initial Inpt Care Lvl 3 Patient Type New Medical Decision Making High Complexity Diagnoses Atrial fibrillation with RVR I48.91 Hyperthyroidism E05.90 Dementia F03.90 CHF (congestive heart failure) I50.9 Transaminitis R74.01 HTN (hypertension) I10
[2021-02-07] MEDS: FUROSEMIDE 40 MG/4 ML VIAL IV SCH (16:56)
[2021-02-07] MEDS ORDERED: ALUMINUM/MAGNESIUM SUSP 30 ML UDC PO PRN (17:16)
[2021-02-07] MEDS ORDERED: MAGNESIUM HYDROXIDE SUSP 30 ML UDC PO PRN (17:16)
[2021-02-07] MEDS ORDERED: ENOXAPARIN INJ 60 MG/0.6 ML SYR SQ ONE (17:16)
[2021-02-07] MEDS ORDERED: ONDANSETRON INJ 2 MG/ML 2 ML VIAL IV PRN (17:16)
[2021-02-07] MEDS ORDERED: ACETAMINOPHEN 325 MG TAB PO PRN (17:16)
[2021-02-07] MEDS ORDERED: POLYETHYLENE (MIRALAX) 17 GM PACK PO PRN (17:16)
[2021-02-07 17:24] LABS: Appearance Urine Clear (Clear); Bilirubin Urine Negative (Negative); Blood Urine Negative (Negative); Color Urine Dark Yellow; Glucose Urine UA Negative (Negative); Ketones Urine 2+ (Negative); Leukocyte Esterase Urine Negative (Negative); Nitrite Urine Negative (Negative); Protein Urine Negative (Negative); Specific Gravity Urine 1.026 (1.000-1.030); Urobilinogen Urine Negative (Negative)
[2021-02-07] MEDS: ENOXAPARIN INJ 60 MG/0.6 ML SYR SQ SCH (18:24)
[2021-02-07] MEDS: METOPROLOL TARTRATE 25 MG TAB PO SCH ×2 (19:28→23:17)
[2021-02-07] MEDS: methIMAzole 5 MG TABLET PO SCH (21:23)
[2021-02-08] MEDS: METOPROLOL TARTRATE 25 MG TAB PO SCH ×4 (04:00→21:54)
[2021-02-08] MEDS: ENOXAPARIN INJ 60 MG/0.6 ML SYR SQ SCH ×2 (05:29→17:40)
[2021-02-08] MEDS ORDERED: FUROSEMIDE 40 MG/4 ML VIAL IV STA (05:39)
[2021-02-08] MEDS: FUROSEMIDE 40 MG/4 ML VIAL IV SCH (06:12)
--- NOTE | 2021-02-08 07:57 | Electrocardiogram Report ---
Test Reason : Blood Pressure : / mmHG Vent. Rate : 140 BPM Atrial Rate : 150 BPM P-R Int : 000 ms QRS Dur : 092 ms QT Int : 316 ms P-R-T Axes : 000 -17 069 degrees QTc Int : 482 ms Atrial fibrillation with rapid ventricular response Abnormal ECG When compared with ECG of 28-MAR-2019 11:35, Atrial fibrillation has replaced Sinus rhythm Vent. rate has increased BY 65 BPM Confirmed by Norman Haile ([id number]) on 02/08/2021 7:57:34 AM Referred By: REFERRED SELF Confirmed By:Norman Haile
[2021-02-08 08:15] LABS: Basophils # (auto) 0.01 K/uL (0-0.2); Basophils % (auto) 0.2 %; Eosinophils # (auto) 0.09 K/uL (0-0.5); Eosinophils % (auto) 1.7 %; Hematocrit (blood only) 44.7 % (37-47); Hemoglobin 14.2 g/dL (12.0-16.0); Immature Granulocytes # (auto) 0.01 K/uL (0.00-0.02); Immature Granulocytes % (auto) 0.2 %; Lymphocytes # (auto) 0.88 K/uL (1.2-3.4); Lymphocytes % (auto) 16.9 %; Mean Corpuscular Hemoglobin 29.5 pg (25-34); Mean Corpuscular Hgb Conc 31.8 g/dL (32-36); Mean Corpuscular Volume 92.9 fL (80-100); Mean Platelet Volume 11.5 fL (7.4-10.4); Monocytes # (auto) 0.63 K/uL (0.11-0.59); Monocytes % (auto) 12.1 %; Neutrophils # (auto) 3.58 K/uL (1.4-6.5); Neutrophils % (auto) 68.9 %; Platelet Count 200 K/uL (130-400); RDW Coefficient of Variation 13.4 % (11.5-14.5); RDW Standard Deviation 45.9 fL (36.4-46.3); Red Blood Count 4.81 M/uL (4.2-5.4)
[2021-02-08 08:38] LABS: Albumin Level 3.1 gm/dl (3.4-5.0); BUN Creatinine Ratio 27.3 (10-20); Calcium 9.4 mg/dl (8.5-10.1); Creatinine Clr Calc Pharmacy 57.5 ml/min; Est GFR (African American) 95.3 ml/min; Est GFR (Non-African American) 82.3 ml/min; Magnesium 2.2 mg/dl (1.8-2.4); Potassium 3.3 mmol/L (3.5-5.1)
[2021-02-08 08:40] LABS: Bilirubin,Total 0.9 mg/dl (0.2-1); Globulin 3.2 gm/dl (2.5-4.0); Total Protein 6.3 gm/dl (6.4-8.2)
--- NOTE | 2021-02-08 09:21 | XCELERA ---
[id number]
[2021-02-08] MEDS: methIMAzole 5 MG TABLET PO SCH ×2 (09:57→21:54)
--- NOTE | 2021-02-08 11:45 | Cardiology Consultation ---
Date of Consultation February 08, 2021 Assessment & Plan (1) Atrial fibrillation with RVR: Patient with subjectively minimally symptomatic new onset atrial fibrillation with rapid ventricular response. However, her minor volume retention/diastolic congestive heart failure is likely secondary to uncontrolled rate. Would transition promptly from IV diltiazem to oral beta-blockers titrated to ventricular rate 80-100 bpm. Beta-blockers are preferred in the context of hyperthyroidism, which in this case is likely the precipitating factor for her atrial fibrillation. Agree with the need for long-term anticoagulation given her [id number] score of 5, she is borderline in terms of apixaban dosing (age greater than 80, weight slightly greater than 60 kg and creatinine < 1.5) but at this point it would be appropriate to use a full 5 mg twice daily dosing. Certainly, resuming her Tapazole and ensuring compliance will be important. (2) CHF (congestive heart failure): Mild volume overload initially, but now appears euvolemic after single dose of diuretic. Rather than placing her on routine diuretic and risking renal insufficiency (particularly if her rate is controlled and she does not continue to retain fluid), would discharge on sliding scale diuretic. Recommend PRN furosemide 20 mg daily for weight gain greater than 3 pounds over her current weight. (3) HTN (hypertension): BP normotensive to low normal on diltiazem drip. Agree with holding/discontinuing olmesartan and monitoring BP on metoprolol as it is titrated. If good rate control and becomes hypertensive, could add olmesartan back. (4) Dementia: May affect compliance. Will be particularly important to ensure appropriate dosing of her anticoagulant. (5) Hyperthyroidism: As above, compliance will be a critical issue. History of Present Illness Reason for Consultation: A flutter Requesting Physician: Frederic Novak MD Attending Physician: Frederic Novak History of Present Illness 80-year-old woman with history of mild dementia, hypothyroidism, and hypertension, no known cardiac history, was noted to have new onset leg edema and brought to the ER where ECG showed atrial fibrillation with rapid ventricular response (155 bpm). Patient herself only noted the leg edema when pointed out by family, she denies any other symptoms. Specifically, she notes no chest discomfort, dyspnea, presyncope or syncope. She notes that she may have felt some minor palpitations in the past, but none since admission. Evaluation thus far shows negative troponin with a measurably low TSH and elevated T4, there is a suspicion that she has not been taking her Tapazole and this may be the cause of her current hyperthyroidism. On telemetry, her rhythm it remains atrial fibrillation, her rate is controlled on a Cardizem drip, she did have multiple 3-second pauses overnight. At the time of my evaluation, she was asymptomatic. Allergies Allergy/AdvReac Type Severity Reaction Status Date / Time banana Allergy Intermediate Hives Verified 02/07/21 18:48 celecoxib Allergy Intermediate HIVES Verified 02/07/21 14:22 grape Allergy Intermediate Hives Verified 02/07/21 18:48 Penicillins Allergy Intermediate HIVES Verified 02/07/21 14:22 Home Medications Medication Instructions Recorded Confirmed Type alendronate 35 mg tablet 35 mg PO WK 02/07/21 02/07/21 History clindamycin HCl 300 mg capsule 600 mg PO DAILY PRN 02/07/21 02/07/21 History fluorometholone 0.1 % eye 1 drp OPB DAILY 02/07/21 02/07/21 History drops,suspension ibuprofen 200 mg tablet (Advil) 200 mg PO Q6H PRN 02/07/21 02/07/21 History loperamide 2 mg capsule 2 mg PO Q4H PRN 02/07/21 02/07/21 History methimazole 5 mg tablet 7.5 mg PO DAILY 02/07/21 02/07/21 History nystatin-triamcinolone 100,000 1 applic TOPICAL DAILY 02/07/21 02/07/21 History unit/g-0.1 % topical cream olmesartan 40 mg tablet 20 mg PO DAILY 02/07/21 02/07/21 History Patient History Medical History Asthma A CHILD Dementia Enlarged thyroid HTN (hypertension) Hypertension Hyperthyroidism Osteoarthritis Overactive bladder Surgical History History of biopsy History of cataract surgery History of section X 2 History of colonoscopy History of corneal transplant BL History of knee replacement procedure of left knee History of knee replacement procedure of right knee History of lumpectomy X 2 (PRECANCEROUS) History of total abdominal hysterectomy and bilateral salpingo-oophorectomy Social History Smoking Status: Never smoker Second Hand Exposure: No; Hx Alcohol Use: Yes Hx Substance Use: No Preferred Language: Monegasque Communication Ability: Impaired Tobacco Feeder Catcher Required: No Beliefs That Will Affect Care: None marital status: Current Living Situation: Alone How many Children do You have: 2 Other Information That Helps Us Care for You: No Feels Safe at Home: Yes Safety Concerns: Feels Safe At This Time Assistive Devices: None Physical Exam Physical Exam: Elderly white female appears comfortable. Afebrile. Normotensive. Pulse 80 bpm and irregular. Skin: no ecchymoses or generalized lesions. HEENT: unremarkable. Neck: Jugular venous pulse at the clavicle at 45 degrees with increased respiratory variation, no carotid bruits. Lungs: clear. Cardiac: irregular rhythm, 2/6 apical holosystolic murmur rating to the axilla, no diastolic murmur or gallop. Abdomen: benign. Extremities: 1-2+ partially pitting pretibial edema, lower extremity pulses not readily palpable but extremities warm with good capillary refill. 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 Results & Data ([facility]) Vital Signs (Past 12 Hours) Vital Signs Temp Pulse Resp BP BP Pulse Ox 02/08/21 07:54 99.1 F 64 16 110/63 94 02/08/21 06:49 98.8 F 78 19 113/70 93 02/08/21 04:13 98.8 F 88 20 101/71 93 Laboratory Results Troponin negative x3. Thyroid studies as noted. Normal CBC. Potassium 3.3 today, otherwise normal electrolytes, BUN 18, creatinine 0.66. Mildly elevated transaminases yesterday which normalized today. Diagnostic Findings ECG on admission showed atrial fibrillation with ventricular rate 140 bpm, no significant ST deviation. Compared with 2019 study, atrial fibrillation replaced sinus rhythm. Chest x-ray showed minor opacities lower lungs and hyperinflation. Echocardiogram showed EF 55 to 60% mild to moderate mitral regurgitation, mild tricuspid regurgitation with mild pulmonary hypertension. Compared to 2012 study, mild increase in mitral regurgitation and mild pulmonary hypertension now seen. PG Care Time/CCT Total # of Minutes Spent Total Time Spent with Patient: Total time spent is greater than 50% in coordination of care (as documented) at patient's floor/unit and/or counseling patient: Coding Level of Care Code 99203 Initial Inpt Care Lvl 3 Diagnoses Atrial fibrillation with RVR I48.91 HTN (hypertension) I10 Dementia F03.90 Hyperthyroidism E05.90 CHF (congestive heart failure) I50.9
[2021-02-08] MEDS: dilTIAZem HCL 125 MG in DEXTROSE 5% 100 ML IV SCH (14:05)
--- NOTE | 2021-02-08 15:13 | Hospitalist Progress Note ---
Date of Service February 08, 2021 Assessment & Plan (1) Atrial fibrillation with RVR: Plan: -New onset A. fib with RVR -Suspect secondary uncontrolled hyperthyroidism (given noncompliance) -For rate control, continue Cardizem drip as already started in the ED. I have asked nursing staff to increase to 10 mg/HR given rate remains elevated -We will start oral beta-blockade (discussed with Dr. Chase who suggests metoprolol 25 mg every 6 hours and can be transitioned to twice daily dosing upon discharge based on requirement needed while in house) -Cardizem drip to be titrated per protocol -will slowly increase metoprolol and titrate off CCB as hyperthyroidism is likely playing role. -Start Lovenox with plan to transition to DOAC for [id number] 2 score=5 -echo reviewed. (2) Hyperthyroidism: Plan: -Patient admits to poor compliance (mostly due to mild dementia and failing to remember to take her medications) -I did reach out to Dr. Rosario (endo). Although not currently highly suspicious for thyroid stormpatient at risk for this -His recommendations are for increasing Tapazole to 7.5 mg twice daily X 1 month and then transitioning back to 7.5 mg once daily. -He would gladly see her as an outpatient -Lengthy discussion with patient and family regarding importance of compliance. Goals per patient and family are for discharge back to home. They will help provide additional care. Daughter lives across the street. Pill enterprise resource planner or blister packs from pharmacy discussed. (3) CHF (congestive heart failure): Plan: Acute HFpEF in setting of Afib RVR treated with IV Lasix and Cardizem gtt -Likely secondary to #1 -We will give 1 dose of IV Lasix now and an additional dose in the a.m. Subsequent doses may be required -We will obtain a BNP -Patient not hypoxic. Symptoms more right-sided (4) Transaminitis: Plan: -Likely due to passive venous congestion from right-sided CHF -Follow-up labs in the a.m. to trend (5) Dementia: Plan: -Progressive -Lengthy discussion with son regarding wishes. Goal is for patient to be discharged back to home when medically ready. They will help provide additional services as daughter lives across the street. Lengthy discussion with patient and son regarding importance of medication compliance and what can be done to help with this (pill enterprise resource planner, blister pack from pharmacy, visiting nurses). They are on board to these changes (6) HTN (hypertension): Plan: -Hold Benicar as BP may not tolerate addition of beta-blockade and Lasix. May need discontinued altogether Plan: Plan of care discussed with Dr. Chase Admission and Anticipated Discharge Date Admission Date: February 07, 2021 Subjective Patient reports no new symptoms today. Review of Systems Review of Systems: All systems reviewed & are unremarkable except as noted in HPI & below Physical Exam Physical Exam: General: Resting comfortably in her hospital bed. She does not appear ill or toxic. NAD. HEENT: Head is AT/NC buccal mucosa is moist and pink Neck: No JVD. + hepatojugular reflex Cardiac: Irregularly irregular,no longer tachycardic Lungs: Speaking full sentences on ambient air. Breathing nonlabored. Abdomen: Normoactive X4. Soft and nontender in all quadrants. + Hepatojugular reflex Extremities: +1 pitting edema of the bilateral lower extremities Neuro: Oriented to self, place, and somewhat to situation. Not oriented to time. Cranial nerves II through XII are grossly intact no focal neuro deficits Skin: No obvious skin lesions or rashes Psych: Appropriate affect pleasant and cooperative Results & Data Results & Data ([facility]) Vital Signs (Past 12 Hours) Vital Signs Temp Pulse Resp BP BP Pulse Ox 02/08/21 12:02 36.8 C 76 18 131/69 99 02/08/21 07:54 37.3 C 64 16 110/63 94 02/08/21 06:49 37.1 C 78 19 113/70 93 02/08/21 04:13 37.1 C 88 20 101/71 93 PG Care Time/CCT Total # of Minutes Spent Total Time Spent with Patient: Total time spent is greater than 50% in coordination of care (as documented) at patient's floor/unit and/or counseling patient: Coding Level of Care Code 26880 Subseq Hosp Care Lvl 2 Diagnoses Atrial fibrillation with RVR I48.91 Hyperthyroidism E05.90 CHF (congestive heart failure) I50.9 Transaminitis R74.01 Dementia F03.90 HTN (hypertension) I10 Time Spent (min) 25
[2021-02-08] MEDS ORDERED: Nursing to Pharmacy Communication SCH (22:15)
[2021-02-09] MEDS: METOPROLOL TARTRATE 25 MG TAB PO SCH ×3 (04:10→16:03)
[2021-02-09] MEDS: ENOXAPARIN INJ 60 MG/0.6 ML SYR SQ SCH ×2 (06:04→17:40)
--- NOTE | 2021-02-09 09:16 | Cardiology Progress Note ---
Date of Service February 09, 2021 Assessment & Plan (1) Atrial fibrillation with RVR: Plan: Patient with subjectively minimally symptomatic new onset atrial fibrillation with rapid ventricular response. However, her minor volume retention/diastolic congestive heart failure is likely secondary to uncontrolled rate. Agree with transition to metoprolol, continue to titrate dose to achieve ventricular rate 80-100 bpm. Initiate apixaban 5 mg twice daily upon discharge for long-term anticoagulation. (2) CHF (congestive heart failure): Plan: She was lying flat and comfortable, so does not appear to have symptomatic heart failure. However, she does appear mildly hypervolemic today. Could initiate triamterene/HCTZ 37.5/25 as a daily low-dose diuretic which would have less risk of hypokalemia and be less dependent upon patient compliance (versus sliding scale furosemide). (3) HTN (hypertension): Plan: BP normotensive. Rather than restarting olmesartan, consider use of triamterene/HCTZ for both antihypertensive and volume unloading effects. (4) Dementia: Plan: May affect compliance. Will be particularly important to ensure appropriate dosing of her anticoagulant and methimazole. (5) Hyperthyroidism: Admission and Anticipated Discharge Date Admission Date: February 07, 2021 Subjective Uneventful night. Rhythm remains atrial fibrillation. Weaned off diltiazem with some increase in ventricular rate (90-110 bpm). Patient confused this morning but denies any somatic complaints, specifically noting no chest pain, dyspnea, or palpitations. Physical Exam Physical Exam: Elderly white female appears comfortable but confused. Afebrile. Normotensive. Pulse 100 bpm and irregular. Skin: no ecchymoses or generalized lesions. HEENT: unremarkable. Neck: Jugular venous pulse one half way to the angle of the jaw at 30 degrees with increased respiratory variation, no carotid bruits. Lungs: clear. Cardiac: irregular rhythm, 2/6 apical holosystolic murmur rating to the axilla, no diastolic murmur or gallop. Abdomen: benign. Extremities: 1-2+ partially pitting pretibial edema, lower extremity pulses not readily palpable but extremities warm with good capillary refill. Neurologic: Answers simple questions, not oriented to place, grossly nonfocal. Results & Data ([facility]) Vital Signs (Past 12 Hours) Vital Signs Temp Pulse Pulse Resp BP BP Pulse Ox 02/09/21 07:49 106 H 02/09/21 07:07 97.3 F L 111 H 18 119/87 95 02/09/21 04:08 98.8 F 92 H 18 134/88 92 02/09/21 00:30 98.4 F 90 16 130/84 94 02/09/21 00:00 106 H PG Care Time/CCT Total # of Minutes Spent Total Time Spent with Patient: Total time spent is greater than 50% in coordination of care (as documented) at patient's floor/unit and/or counseling patient: Coding Level of Care Code 89919 Subseq Hosp Care Lvl 3 Diagnoses Atrial fibrillation with RVR I48.91 CHF (congestive heart failure) I50.9 HTN (hypertension) I10 Dementia F03.90 Hyperthyroidism E05.90
[2021-02-09] MEDS: POTASSIUM CHLORIDE CRTAB 20 MEQ TABCR PO SCH ×2 (10:34→21:26)
[2021-02-09] MEDS: methIMAzole 5 MG TABLET PO SCH ×2 (10:34→21:25)
--- NOTE | 2021-02-09 16:19 | Hospitalist Progress Note ---
Date of Service February 09, 2021 Assessment & Plan (1) Atrial fibrillation with RVR: Plan: -New onset A. fib with RVR -Suspect secondary uncontrolled hyperthyroidism (given noncompliance) -For rate control, continue Cardizem drip as already started in the ED. I have asked nursing staff to increase to 10 mg/HR given rate remains elevated -We will start oral beta-blockade (discussed with Dr. Chase who suggests metoprolol 25 mg every 6 hours and can be transitioned to twice daily dosing upon discharge based on requirement needed while in house) -Cardizem drip to be titrated per protocol -will slowly increase metoprolol and titrate off CCB as hyperthyroidism is likely playing role. -Start Lovenox with plan to transition to DOAC for [id number] 2 score=5 -echo reviewed. (2) Hyperthyroidism: Plan: -Patient admits to poor compliance (mostly due to mild dementia and failing to remember to take her medications) -I did reach out to Dr. Rosario (endo). Although not currently highly suspicious for thyroid stormpatient at risk for this -His recommendations are for increasing Tapazole to 7.5 mg twice daily X 1 month and then transitioning back to 7.5 mg once daily. -He would gladly see her as an outpatient -Lengthy discussion with patient and family regarding importance of compliance. Goals per patient and family are for discharge back to home. They will help provide additional care. Daughter lives across the street. Pill strategic planner or blister packs from pharmacy discussed. (3) CHF (congestive heart failure): Plan: Acute HFpEF in setting of Afib RVR treated with IV Lasix and Cardizem gtt -Likely secondary to #1 -We will give 1 dose of IV Lasix now and an additional dose in the a.m. Subsequent doses may be required -We will obtain a BNP -Patient not hypoxic. Symptoms more right-sided (4) Transaminitis: Plan: -Likely due to passive venous congestion from right-sided CHF -Follow-up labs in the a.m. to trend (5) Dementia: Plan: -Progressive complicated from delirium secondary to problem 1 -Lengthy discussion with son regarding wishes. Goal is for patient to be discharged back to home when medically ready. They will help provide additional services as daughter lives across the street. Lengthy discussion with patient and son regarding importance of medication compliance and what can be done to help with this (pill strategic planner, blister pack from pharmacy, visiting nurses). They are on board to these changes Urine is clear. metabolic encephalopathy from UTI IS RULED OUT given normal urine. Delirium may occur from hyperthyroidism, or from being in the hospital. will not reorder UA as this may be falsely posoitive by contamination and confusion predates new urine sample. (6) HTN (hypertension): Plan: -Hold Benicar as BP may not tolerate addition of beta-blockade and Lasix. May need discontinued altogether Updated son on phone. Plan: Plan of care discussed with Dr. Chase Admission and Anticipated Discharge Date Admission Date: February 07, 2021 Subjective Patient is confused this AM. Patient was refusing medications initially, but after reorientation, patient was calm. Review of Systems Review of Systems: All systems reviewed & are unremarkable except as noted in HPI & below Physical Exam Physical Exam: General: Resting comfortably in her hospital bed. She does not appear ill or toxic. NAD. HEENT: Head is AT/NC buccal mucosa is moist and pink Neck: No JVD. + hepatojugular reflex Cardiac: Irregularly irregular,no longer tachycardic Lungs: Speaking full sentences on ambient air. Breathing nonlabored. Abdomen: Normoactive X4. Soft and nontender in all quadrants. + Hepatojugular reflex Extremities: +1 pitting edema of the bilateral lower extremities Neuro: Oriented to self, place, and somewhat to situation. Not oriented to time. Cranial nerves II through XII are grossly intact no focal neuro deficits Skin: No obvious skin lesions or rashes Psych: Appropriate affect pleasant and cooperative Results & Data Results & Data ([facility]) Vital Signs (Past 12 Hours) Vital Signs Temp Pulse Pulse Resp BP Pulse Ox 02/09/21 15:59 36.8 C 110 H 18 125/79 96 02/09/21 15:18 114 H 02/09/21 07:49 106 H 02/09/21 07:07 36.3 C L 111 H 18 119/87 95 PG Care Time/CCT Total # of Minutes Spent Total Time Spent with Patient: Total time spent is greater than 50% in coordination of care (as documented) at patient's floor/unit and/or counseling patient: Coding Level of Care Code 91025 Subseq Hosp Care Lvl 3 Diagnoses Atrial fibrillation with RVR I48.91 Hyperthyroidism E05.90 CHF (congestive heart failure) I50.9 Transaminitis R74.01 Dementia F03.90 HTN (hypertension) I10 Time Spent (min) 35
[2021-02-09] MEDS ORDERED: HALOPERIDOL 2 MG/1 ML UDP PO ONE (19:53)
[2021-02-09] MEDS: METOPROLOL TARTRATE 100 MG TAB PO SCH (21:25)
[2021-02-10] MEDS: ENOXAPARIN INJ 60 MG/0.6 ML SYR SQ SCH ×2 (05:20→17:06)
[2021-02-10] MEDS: METOPROLOL TARTRATE 100 MG TAB PO SCH ×2 (09:04→20:09)
[2021-02-10] MEDS: POTASSIUM CHLORIDE CRTAB 20 MEQ TABCR PO SCH (09:06)
[2021-02-10] MEDS: methIMAzole 5 MG TABLET PO SCH ×2 (09:06→20:08)
[2021-02-10] MEDS ORDERED: DIGOXIN 250 MCG in SYRINGE 9 ML IV ONE (10:45)
[2021-02-10] MEDS: DIGOXIN 250 MCG in SYRINGE 9 ML IV SCH ×2 (17:06→23:15)
[2021-02-10 17:29] LABS: Hematocrit (blood only) 44.2 % (37-47); Hemoglobin 14.6 g/dL (12.0-16.0); Mean Corpuscular Hemoglobin 29.9 pg (25-34); Mean Corpuscular Volume 90.6 fL (80-100); Mean Platelet Volume 11.4 fL (7.4-10.4); Platelet Count 177 K/uL (130-400); RDW Coefficient of Variation 13.1 % (11.5-14.5); RDW Standard Deviation 43.6 fL (36.4-46.3); Red Blood Count 4.88 M/uL (4.2-5.4); White Blood Count 5.47 K/uL (4.8-10.8)
--- NOTE | 2021-02-10 17:59 | Cardiology Progress Note ---
Date of Service February 10, 2021 Assessment & Plan (1) Atrial fibrillation with RVR: Plan: Patient remains asymptomatic but ventricular response suboptimally controlled. Her metoprolol was titrated up to 100 mg twice daily, her blood pressure has been labile. Would be reluctant to initiate calcium channel jose luis due to increased risk of hypotension and evidence of periodic bradycardia (tachybrady syndrome) when she was on diltiazem drip. Addition of digoxin is reasonable. If heart rate remains elevated, consider addition of amiodarone to her metoprolol for rate control. (2) CHF (congestive heart failure): Plan: She was again lying flat and comfortable, so does not appear to have symptomatic heart failure. However, she does appear mildly hypervolemic today. Could initiate triamterene/HCTZ 37.5/25 as a daily low-dose diuretic which would have less risk of hypokalemia and be less dependent upon patient compliance (versus sliding scale furosemide). (3) HTN (hypertension): Plan: BP labile, hold on restarting olmesartan with beta-jose luis being titrated and consideration of low-dose diuretic for her volume retention. (4) Dementia: Plan: May affect compliance. Will be particularly important to ensure appropriate dosing of her anticoagulant and methimazole. (5) Hyperthyroidism: Admission and Anticipated Discharge Date Admission Date: February 07, 2021 Subjective Uneventful night. Patient had no complaints, she denied any chest pain, dyspnea, or subjective palpitations. She is weaned off diltiazem and metoprolol titrated upward, however her ventricular rate remains suboptimally controlled at 110-120 bpm. Physical Exam Physical Exam: Comfortable, did not seem confused today. Afebrile. Mildly hypertensive. Pulse 110 bpm and irregular. Skin: no ecchymoses or generalized lesions. HEENT: unremarkable. Neck: Jugular venous pulse 1[address] to the angle of the jaw at 30 degrees with increased respiratory variation, no carotid bruits. Lungs: clear. Cardiac: irregular tachycardic rhythm, 2/6 apical holosystolic murmur rating to the axilla, no diastolic murmur or gallop. Abdomen: benign. Extremities: 1-2+ partially pitting pretibial edema, lower extremity pulses not readily palpable but extremities warm with good capillary refill. Neurologic: Conversing normally, grossly nonfocal. Results & Data ([facility]) Laboratory Results Potassium 3.3, otherwise normal electrolytes, BUN 18, creatinine 0.66. PG Care Time/CCT Total # of Minutes Spent Total Time Spent with Patient: Total time spent is greater than 50% in coordination of care (as documented) at patient's floor/unit and/or counseling patient: Coding Level of Care Code 97240 Subseq Hosp Care Lvl 3 Diagnoses Atrial fibrillation with RVR I48.91 CHF (congestive heart failure) I50.9 HTN (hypertension) I10 Dementia F03.90 Hyperthyroidism E05.90
--- NOTE | 2021-02-10 21:11 | Hospitalist Progress Note ---
Date of Service February 10, 2021 Assessment & Plan (1) Atrial fibrillation with RVR: Plan: -New onset A. fib with RVR -Suspect secondary uncontrolled hyperthyroidism (given noncompliance) -For rate control, continue Cardizem drip as already started in the ED. I have asked nursing staff to increase to 10 mg/HR given rate remains elevated -We will start oral beta-blockade (discussed with Dr. Chase who suggests metoprolol 25 mg every 6 hours and can be transitioned to twice daily dosing upon discharge based on requirement needed while in house) -Cardizem drip has been dscontinued -increased metoprolol to 100 mg pO BID. -robert add digoxin. -HR remains elevated, not at goal. -Start Lovenox with plan to transition to DOAC for [id number] 2 score=5 -echo reviewed. (2) Hyperthyroidism: Plan: -Patient admits to poor compliance (mostly due to mild dementia and failing to remember to take her medications) -I did reach out to Dr. Rosario (endo). Although not currently highly suspicious for thyroid stormpatient at risk for this -His recommendations are for increasing Tapazole to 7.5 mg twice daily X 1 month and then transitioning back to 7.5 mg once daily. -He would gladly see her as an outpatient -Lengthy discussion with patient and family regarding importance of compliance. Goals per patient and family are for discharge back to home. They will help provide additional care. Daughter lives across the street. Pill production planner or blister packs from pharmacy discussed. (3) CHF (congestive heart failure): Plan: Acute HFpEF in setting of Afib RVR treated with IV Lasix and Cardizem gtt -Likely secondary to #1 -We will give 1 dose of IV Lasix now and an additional dose in the a.m. Subsequent doses may be required -We will obtain a BNP -Patient not hypoxic. Symptoms more right-sided (4) Transaminitis: Plan: -Likely due to passive venous congestion from right-sided CHF -Follow-up labs in the a.m. to trend (5) Dementia: Plan: -Progressive complicated from delirium secondary to problem 1 -Lengthy discussion with son regarding wishes. Goal is for patient to be discharged back to home when medically ready. They will help provide additional services as daughter lives across the street. Lengthy discussion with patient and son regarding importance of medication compliance and what can be done to help with this (pill production planner, blister pack from pharmacy, visiting nurses). They are on board to these changes Urine is clear. metabolic encephalopathy from UTI IS RULED OUT given normal urine. Delirium may occur from hyperthyroidism, or from being in the hospital. will not reorder UA as this may be falsely posoitive by contamination and confusion predates new urine sample. (6) HTN (hypertension): Plan: -Hold Benicar as BP may not tolerate addition of beta-blockade and Lasix. May need discontinued altogether Updated son on phone. Plan: Plan of care discussed with Dr. Chase Admission and Anticipated Discharge Date Admission Date: February 07, 2021 Subjective Patient remains intermittently confused. She is asking to get her clothes from the other room. She is easily reoriented. Review of Systems Review of Systems: All systems reviewed & are unremarkable except as noted in HPI & below Physical Exam Physical Exam: General: Resting comfortably in her hospital bed. She does not appear ill or toxic. NAD. HEENT: Head is AT/NC buccal mucosa is moist and pink Neck: No JVD. + hepatojugular reflex Cardiac: Irregularly irregular,no longer tachycardic Lungs: Speaking full sentences on ambient air. Breathing nonlabored. Abdomen: Normoactive X4. Soft and nontender in all quadrants. + Hepatojugular reflex Extremities: +1 pitting edema of the bilateral lower extremities Neuro: Oriented to self, place, and somewhat to situation. Not oriented to time. Cranial nerves II through XII are grossly intact no focal neuro deficits Skin: No obvious skin lesions or rashes Psych: Appropriate affect pleasant and cooperative Results & Data Results & Data ([facility]) Vital Signs (Past 12 Hours) Vital Signs Temp Pulse Pulse Resp BP BP Pulse Ox 02/10/21 19:52 37.2 C 106 H 24 148/80 H 94 02/10/21 17:06 132 H 02/10/21 15:22 36.5 C 110 H 14 152/81 H 94 02/10/21 12:03 115 H 02/10/21 11:26 36.5 C 110 H 12 135/83 95 PG Care Time/CCT Total # of Minutes Spent Total Time Spent with Patient: Total time spent is greater than 50% in coordination of care (as documented) at patient's floor/unit and/or counseling patient: Coding Level of Care Code 08226 Subseq Hosp Care Lvl 2 Diagnoses Atrial fibrillation with RVR I48.91 Hyperthyroidism E05.90 CHF (congestive heart failure) I50.9 Transaminitis R74.01 Dementia F03.90 HTN (hypertension) I10 Time Spent (min) 25
[2021-02-11] MEDS: ENOXAPARIN INJ 60 MG/0.6 ML SYR SQ SCH ×2 (05:50→17:27)
[2021-02-11] MEDS: DIGOXIN 250 MCG in SYRINGE 9 ML IV SCH (05:51)
[2021-02-11] MEDS ORDERED: METOPROLOL TARTRATE 50 MG TAB PO STA (09:50)
[2021-02-11] MEDS: methIMAzole 5 MG TABLET PO SCH ×2 (10:27→22:39)
[2021-02-11] MEDS: METOPROLOL TARTRATE 100 MG TAB PO SCH (10:32)
[2021-02-11 10:57] LABS: Hematocrit (blood only) 49.9 % (37-47); Hemoglobin 16.6 g/dL (12.0-16.0); Mean Corpuscular Hemoglobin 30.1 pg (25-34); Mean Corpuscular Hgb Conc 33.3 g/dL (32-36); Mean Corpuscular Volume 90.4 fL (80-100); Mean Platelet Volume 11.7 fL (7.4-10.4); Platelet Count 172 K/uL (130-400); RDW Coefficient of Variation 12.9 % (11.5-14.5); RDW Standard Deviation 42.6 fL (36.4-46.3); Red Blood Count 5.52 M/uL (4.2-5.4); White Blood Count 5.59 K/uL (4.8-10.8)
[2021-02-11 11:36] LABS: BUN Creatinine Ratio 23.9 (10-20); Calcium 9.5 mg/dl (8.5-10.1); Creatinine Clr Calc Pharmacy 69.6 ml/min; Est GFR (African American) 101.9 ml/min; Est GFR (Non-African American) 87.9 ml/min; Potassium 4.1 mmol/L (3.5-5.1)
--- NOTE | 2021-02-11 12:46 | Cardiology Progress Note ---
Date of Service February 11, 2021 Assessment & Plan (1) Atrial fibrillation with RVR: (2) CHF (congestive heart failure): (3) HTN (hypertension): (4) Dementia: (5) Hyperthyroidism: Plan: Patient remains asymptomatic but ventricular response is still suboptimally controlled. Since her BP remains mildly hypertensive and she is not showing any tendency to bradycardia, could further titrate metoprolol (from 100 mg twice daily to 150 mg twice daily) while continuing digoxin (125 mcg daily). If her heart rate improved on increase metoprolol and is close to 100 bpm and does not increase greater than 120 bpm with modest activity, reasonable for her to be discharged with further medication titration as outpatient. If her heart rate remains elevated and she remains hypertensive, could add low- dose diltiazem (30 mg every 12 hours with hold orders). Volume status is reasonable currently, but would consider daily Dyazide dosing to manage her her hypervolemia/peripheral edema. Admission and Anticipated Discharge Date Admission Date: February 07, 2021 Subjective Uneventful night. Patient had no complaints, she denied any chest pain, dyspnea, or subjective palpitations. Despite upward titration of her metoprolol and addition of digoxin, her ventricular rate remained in the 100-120 bpm range. Physical Exam Physical Exam: Comfortable, did not seem confused today. Afebrile. Mildly hypertensive. Pulse 100 bpm and irregular. Skin: no ecchymoses or generalized lesions. HEENT: unremarkable. Neck: Jugular venous pulse just above the clavicle, no carotid bruits. Lungs: clear. Cardiac: irregular tachycardic rhythm, 2/6 apical holosystolic murmur rating to the axilla, no diastolic murmur or gallop. Abdomen: benign. Extremities: 1+ partially pitting pretibial edema, lower extremity pulses not readily palpable but extremities warm with good capillary refill. Neurologic: Conversing normally, grossly nonfocal. Results & Data ([facility]) Vital Signs (Past 12 Hours) Vital Signs Temp Pulse Pulse Resp BP BP Pulse Ox 02/11/21 11:38 98.8 F 99 H 16 156/78 H 96 02/11/21 07:33 100 H 18 151/88 H 93 02/11/21 05:51 116 H Laboratory Results Normal electrolytes, BUN 13, creatinine 0.54. PG Care Time/CCT Total # of Minutes Spent Total Time Spent with Patient: Total time spent is greater than 50% in coordination of care (as documented) at patient's floor/unit and/or counseling patient: Coding Level of Care Code 40075 Subseq Hosp Care Lvl 3 Diagnoses Atrial fibrillation with RVR I48.91 CHF (congestive heart failure) I50.9 HTN (hypertension) I10 Dementia F03.90 Hyperthyroidism E05.90
[2021-02-11] MEDS ORDERED: dilTIAZem HCL 30 MG TAB PO ONE (16:45)
--- NOTE | 2021-02-11 20:55 | Hospitalist Progress Note ---
Date of Service February 11, 2021 Assessment & Plan (1) Atrial fibrillation with RVR: Plan: -New onset A. fib with RVR -Suspect secondary uncontrolled hyperthyroidism (given noncompliance) -For rate control, continue Cardizem drip as already started in the ED. I have asked nursing staff to increase to 10 mg/HR given rate remains elevated -We will start oral beta-blockade (discussed with Dr. Chase who suggests metoprolol 25 mg every 6 hours and can be transitioned to twice daily dosing upon discharge based on requirement needed while in house) -Cardizem drip has been dscontinued -increased metoprolol to 150 mg pO BID. -add diltiazem. -Ambulated around the morales: HR in 130-140s on ambulation. -HR remains elevated, not at goal. -Start Lovenox with plan to transition to DOAC for [id number] 2 score=5 -echo reviewed. (2) Hyperthyroidism: Plan: -Patient admits to poor compliance (mostly due to mild dementia and failing to remember to take her medications) -I did reach out to Dr. Rosario (endo). Although not currently highly suspicious for thyroid stormpatient at risk for this -His recommendations are for increasing Tapazole to 7.5 mg twice daily X 1 month and then transitioning back to 7.5 mg once daily. -He would gladly see her as an outpatient -Lengthy discussion with patient and family regarding importance of compliance. Goals per patient and family are for discharge back to home. They will help provide additional care. Daughter lives across the street. Pill urban and regional planner or blister packs from pharmacy discussed. (3) CHF (congestive heart failure): Plan: Acute HFpEF in setting of Afib RVR treated with IV Lasix and Cardizem gtt -Likely secondary to #1 -We will give 1 dose of IV Lasix now and an additional dose in the a.m. Subsequent doses may be required -We will obtain a BNP -Patient not hypoxic. Symptoms more right-sided (4) Transaminitis: Plan: -Likely due to passive venous congestion from right-sided CHF -Follow-up labs in the a.m. to trend (5) Dementia: Plan: -Progressive complicated from delirium secondary to problem 1 -Lengthy discussion with son regarding wishes. Goal is for patient to be discha rged back to home when medically ready. They will help provide additional services as daughter lives across the street. Lengthy discussion with patient and son regarding importance of medication compliance and what can be done to help with this (pill urban and regional planner, blister pack from pharmacy, visiting nurses). They are on board to these changes Urine is clear. metabolic encephalopathy from UTI IS RULED OUT given normal urine. Delirium may occur from hyperthyroidism, or from being in the hospital. will not reorder UA as this may be falsely posoitive by contamination and confusion predates new urine sample. (6) HTN (hypertension): Plan: -Hold Benicar as BP may not tolerate addition of beta-blockade and Lasix. May need discontinued altogether Updated son on phone. Plan: Plan of care discussed with Dr. Chase Admission and Anticipated Discharge Date Admission Date: February 07, 2021 Subjective Patient reports no new complaints. Updated daughter on the phone. Review of Systems Review of Systems: All systems reviewed & are unremarkable except as noted in HPI & below Physical Exam Physical Exam: General: Resting comfortably in her hospital bed. She does not appear ill or toxic. NAD. HEENT: Head is AT/NC buccal mucosa is moist and pink Neck: No JVD. + hepatojugular reflex Cardiac: Irregularly irregular,no longer tachycardic Lungs: Speaking full sentences on ambient air. Breathing nonlabored. Abdomen: Normoactive X4. Soft and nontender in all quadrants. + Hepatojugular reflex Extremities: +1 pitting edema of the bilateral lower extremities Neuro: Oriented to self, place, and somewhat to situation. Not oriented to time. Cranial nerves II through XII are grossly intact no focal neuro deficits Skin: No obvious skin lesions or rashes Psych: Appropriate affect pleasant and cooperative Results & Data Results & Data ([facility]) Vital Signs (Past 12 Hours) Vital Signs Temp Pulse Resp BP Pulse Ox 02/11/21 11:38 37.1 C 99 H 16 156/78 H 96 PG Care Time/CCT Total # of Minutes Spent Total Time Spent with Patient: Total time spent is greater than 50% in coordination of care (as documented) at patient's floor/unit and/or counseling patient: Coding Level of Care Code 28125 Subseq Hosp Care Lvl 3 Diagnoses Atrial fibrillation with RVR I48.91 Hyperthyroidism E05.90 CHF (congestive heart failure) I50.9 Transaminitis R74.01 Dementia F03.90 HTN (hypertension) I10 Time Spent (min) 35
[2021-02-11] MEDS: METOPROLOL TARTRATE 50 MG TAB PO SCH (22:39)
[2021-02-12] MEDS: ENOXAPARIN INJ 60 MG/0.6 ML SYR SQ SCH (06:31)
[2021-02-12] MEDS ORDERED: dilTIAZem HCL 30 MG TAB PO SCH (09:00)
[2021-02-12] MEDS: methIMAzole 5 MG TABLET PO SCH (09:11)
[2021-02-12] MEDS: METOPROLOL TARTRATE 50 MG TAB PO SCH (09:12)
--- NOTE | 2021-02-12 14:03 | Cardiology Progress Note ---
Date of Service February 12, 2021 Assessment & Plan (1) Atrial fibrillation with RVR: (2) CHF (congestive heart failure): (3) HTN (hypertension): (4) Dementia: (5) Hyperthyroidism: Plan: Patient remains asymptomatic, ventricular response is still borderline but has improved. No hypotension or bradycardia overnight on her current regimen, would discharge on metoprolol 150 mg twice daily and diltiazem 30 mg twice daily. Volume status appears favorable currently, no need for routine diuretic (could add Dyazide if weight gain/fluid retention as outpatient). Can see her for close follow-up in clinic next week. Admission and Anticipated Discharge Date Admission Date: February 07, 2021 Subjective Patient was comfortable and had an uneventful night. She had no complaints, denying chest pain, dyspnea, subjective palpitations. After upward titration of metoprolol and addition of diltiazem (last evening), her ventricular rate is still borderline elevated but has improved. Physical Exam Physical Exam: Comfortable, did not seem confused today. Normotensive BP. Pulse at bedside using phone randi 94 bpm and irregular. Skin: no ecchymoses or generalized lesions. HEENT: unremarkable. Neck: Jugular venous pulse just above the clavicle, no carotid bruits. Lungs: clear. Cardiac: irregular rhythm, 2/6 apical holosystolic murmur rating to the axilla, no diastolic murmur or gallop. Abdomen: benign. Extremities: 1+ partially pitting pretibial edema, lower extremity pulses not readily palpable but extremities warm with good capillary refill. Neurologic: Conversing normally, grossly nonfocal. Results & Data ([facility]) Vital Signs (Past 12 Hours) Vital Signs Temp Pulse Pulse Resp BP Pulse Ox 02/12/21 11:55 98.2 F 92 H 16 110/70 93 02/12/21 08:45 105 H 02/12/21 08:05 98.8 F 108 H 18 124/73 94 02/12/21 03:55 97.3 F L 94 H 18 148/87 H 94 Laboratory Results No labs today. PG Care Time/CCT Total # of Minutes Spent Total Time Spent with Patient: Total time spent is greater than 50% in coordination of care (as documented) at patient's floor/unit and/or counseling patient: Coding Level of Care Code 57838 Subseq Hosp Care Lvl 3 Diagnoses Atrial fibrillation with RVR I48.91 CHF (congestive heart failure) I50.9 HTN (hypertension) I10 Dementia F03.90 Hyperthyroidism E05.90
--- NOTE | 2021-02-14 16:20 | Discharge Summary ---
Date of Service February 12, 2021 Admission HPI Per Admitting Provider Mrs. Ernst is an 80 y/o WF with a PMHx of mild dementia, HYPERthyroidism, HTN and OA. She presented to the ED for evaluation of edema of the LE. She is a limited historian to detail. Son at bedside and reports that family noted increased edema of her legs lastnight. Patient unable to determine how long this has been ongoing REports a dry cough and intermittent dizziness but denies F/C, CP, palpitations/cardiac awareness, SOB, orthopnea, PND, abd pain, dysuria, hematuria, frequency, diarrhea. W/U in the ED revealed New onset A.Fib with RVR (155). BP stable 127/73 Her troponin was negative and her TSH was LOW at <0.015 with an elevated Free T4 at 2.63. AST/ALT slightly elevated (43/84). The rest of her lab data was unremarkable. UA not grossly infected. CXR showing haziness in the bases. CT of the head nonacute. COVID negative Patient was given 20mg bolus IV Cardizem and subsequently started on a continuous gtt at 5mg/hr. When evaluated by myself, HR 112-134. Upon further questioning (regarding her thyroid function studies)patient uncertain if she is taking her medication daily. Admits that she "probably is not". Son able to pull up her medication log from [place] in the last she had her Tapazole filled was August of this year. Principal Diagnosis a fib Discharge Exam General: Resting comfortably in her hospital bed. She does not appear ill or toxic. NAD. HEENT: Head is AT/NC buccal mucosa is moist and pink Neck: No JVD. + hepatojugular reflex Cardiac: Irregularly irregular,no longer tachycardic Lungs: Speaking full sentences on ambient air. Breathing nonlabored. Abdomen: Normoactive X4. Soft and nontender in all quadrants. + Hepatojugular reflex Extremities: +1 pitting edema of the bilateral lower extremities Neuro: Oriented to self, place, and somewhat to situation. Not oriented to time. Cranial nerves II through XII are grossly intact no focal neuro deficits Skin: No obvious skin lesions or rashes Psych: Appropriate affect pleasant and cooperative Discharge Data Allergies Allergy/AdvReac Type Severity Reaction Status Date / Time banana Allergy Intermediate Hives Verified 02/07/21 18:48 celecoxib Allergy Intermediate HIVES Verified 02/07/21 14:22 grape Allergy Intermediate Hives Verified 02/07/21 18:48 Penicillins Allergy Intermediate HIVES Verified 02/07/21 14:22 Consultations 02/07/21 15:15 ED Decision to Admit Stat 02/08/21 08:27 Consult Cardiology Routine Ordered Studies 02/07/21 13:41 CT head/brain wo con Stat Hospital Course (1) Atrial fibrillation with RVR: -New onset A. fib with RVR -Suspect secondary uncontrolled hyperthyroidism (given noncompliance) -For rate control, continue Cardizem drip as already started in the ED. I have asked nursing staff to increase to 10 mg/HR given rate remains elevated -We will start oral beta-blockade (discussed with Dr. Chase who suggests metoprolol 25 mg every 6 hours and can be transitioned to twice daily dosing upon discharge based on requirement needed while in house) -Cardizem drip has been dscontinued -increased metoprolol to 150 mg pO BID. -add diltiazem. -Ambulated around the morales: HR in 130-140s on ambulation. -HR remains elevated, not at goal. -Start Lovenox with plan to transition to DOAC for [id number] 2 score=5 -echo reviewed. will place on eliquis and discharge on metorpolol 150 mg PO BID and diltiazem. will f/u with cardio next weeek (2) Hyperthyroidism: -Patient admits to poor compliance (mostly due to mild dementia and failing to remember to take her medications) -I did reach out to Dr. Rosario (endo). Although not currently highly suspicious for thyroid stormpatient at risk for this -His recommendations are for increasing Tapazole to 7.5 mg twice daily X 1 month and then transitioning back to 7.5 mg once daily. -He would gladly see her as an outpatient -Lengthy discussion with patient and family regarding importance of compliance. Goals per patient and family are for discharge back to home. They will help provide additional care. Daughter lives across the street. Pill environmental emergencies planner or blister packs from pharmacy discussed. (3) CHF (congestive heart failure): Acute HFpEF in setting of Afib RVR treated with IV Lasix and Cardizem gtt -Likely secondary to #1 -We will give 1 dose of IV Lasix now and an additional dose in the a.m. Subsequent doses may be required -We will obtain a BNP -Patient not hypoxic. Symptoms more right-sided (4) Transaminitis: -Likely due to passive venous congestion from right-sided CHF -Follow-up labs in the a.m. to trend (5) Dementia: -Progressive complicated from delirium secondary to problem 1 -Lengthy discussion with son regarding wishes. Goal is for patient to be discharged back to home when medically ready. They will help provide additional services as daughter lives across the street. Lengthy discussion with patient and son regarding importance of medication compliance and what can be done to help with this (pill environmental emergencies planner, blister pack from pharmacy, visiting nurses). They are on board to these changes Urine is clear. metabolic encephalopathy from UTI IS RULED OUT given normal urine. Delirium may occur from hyperthyroidism, or from being in the hospital. will not reorder UA as this may be falsely posoitive by contamination and confusion predates new urine sample. (6) HTN (hypertension): -Hold Benicar as BP may not tolerate addition of beta-blockade and Lasix. May need discontinued altogether Updated daughter on phone. Plan of care discussed with Dr. Chase Total Time Total Time Spent Total Time Spent (In Minutes): 32 Discharge Plan Discharge Items Patient Disposition: Home - Self-Care Reason For Visit: NEW ONSET A.FIB WITH RVR Discharge Diagnosis: new onset a. fib with RVR Activity: Resume your previous activity Non-emergency contact: Primary Care Provider Call non-emergency contact if: you have any medication questions Follow-up/Referrals: Char Chow CRNP [Primary Care Provider] - 02/19/21 12:50 pm (you will see Dr. Jones) Diet: Heart Healthy Addtl Attending Provider Instructions: You were found to have an elevated heart rate. You will be placed on metoprolol 150 mg twice a day and diltiazem twice a day. You will followup with your PCP to check assess for possible dementia. You may benefit from a Neurology appointment. Please followup with Dr. Haile on Monday Pending Studies at Discharge: No Stand-Alone Forms: My [employer], Smoking Cessation Medications and DC Order Prescriptions: New acetaminophen 325 mg Tablet 650 mg PO Q4H PRNQty: 30 RF: 0 metoprolol tartrate 50 mg Tablet 150 mg PO BID Qty: 60 RF: 0 diltiazem HCl 30 mg Tablet 30 mg PO BID Qty: 60 RF: 0 Eliquis 5 mg tablet 5 mg PO BID Qty: 60 RF: 0 Continued clindamycin HCl 300 mg capsule 600 mg PO DAILY PRN (Reason: dental appointments) RF: 0 loperamide 2 mg Capsule 2 mg PO Q4H PRN (Reason: Diarrhea) RF: 0 alendronate 35 mg tablet 35 mg PO WK RF: 0 fluorometholone 0.1 % drops,suspension 1 drp OPB DAILY RF: 0 nystatin-triamcinolone 100,000-0.1 unit/g-% cream 1 applic TOPICAL DAILY RF: 0 methimazole 5 mg tablet 7.5 mg PO DAILY RF: 0 Discontinued ibuprofen [Advil] 200 mg Tablet 200 mg PO Q6H PRN (Reason: Pain) RF: 0 olmesartan 40 mg Tablet 20 mg PO DAILY RF: 0 Discharge Orders: Discharge Order (Routine); Ordered 02/12/21 Ordered By: Frederic Novak Admission Data Admit Date/Time: 02/07/21 16:05 Attending Provider: Frederic Novak Admit Provider: Marco Antonio Chase Primary Care Provider: Char Chow Other Providers: Marco Antonio Chase ; Jacob Scanlon ; Norman Haile ; Franko Good ; Homero Denis ; Harshil Aquino Jr ; Real Self ; Cookie Guevara ; Sallie Neves ; Kendell Del Toro ; Kendell Sanchez ; Dimitrios Keller Jennifer M. ; Ruel Bowman ; Dom White Michael K. Other Interventions: Discharge Summary Assessment (RN) Last Done: 02/12/21 15:55 Coding Level of Care Code D/C DAY MANAGEMENT >30 MINS Diagnoses Atrial fibrillation with RVR I48.91 Hyperthyroidism E05.90 CHF (congestive heart failure) I50.9 Transaminitis R74.01 Dementia F03.90 HTN (hypertension) I10
--- NOTE | 2021-02-18 07:05 | Coding Query ---
CODING QUERY To promote full compliance with coding requirements relating to patient care, provider participation is requested in all cases of studio musician uncertainty. Please assist us with the question(s) below: Coding Question(s): Documentation states,"Metabolic Encephalopathy from UTI is Ruled Out given normal Urine. Delirium may occur from hyperthyroidism, or from being in the hospital." Please clarify below: (X ) Only UTI Ruled Out ( ) Both UTI and Metabolic Encephalopathy Ruled Out ( ) Other Please Explain: Thank you Perico Landin Principal Diagnosis: "that condition established after study, to be chiefly responsible for occasioning the admission of the patient to the hospital for care." Co-Existing Principal Diagnosis: "when two or more diagnoses equally meet the criteria for principal diagnosis as determined by the circumstances of admission, diagnostic work up, and/or therapy provided, and the Alphabetic Index, Tabular List, or another coding guideline does not provide sequencing direction, any one of the diagnoses may be sequenced first." "When the physician has documented what appears to be a current diagnosis in the body of the record, but has not included the diagnosis in the final diagnostic statement, the physician should be asked whether the diagnosis should be added." (Source Coding [facility] 2 QTR90. p3-4) ALIVIA
== END 2021-02-12 17:20 | disposition home or self-care (01) | DRG 308 ==
LOC: ED 12:08 → 2S 16:05 → SUATTDRO 16:05 → 2S 17:10

== ENCOUNTER 2022-05-08 21:45 | Inpatient (IN) ==
[2022-05-08] MEDS ORDERED: LIDOCAINE/EPINEPH/TETRACAINE 1 EA SYR EXT ONE (22:20)
[2022-05-08] MEDS ORDERED: LIDOCAINE 1%/EPINEPHRINE 1:100,000 50 ML VIAL INFIL ONE (22:25)
[2022-05-08 22:38] LABS: INR 1.1 (0.9-1.1)
[2022-05-08 22:51] LABS: Basophils # (auto) 0.04 K/uL (0-0.2); Basophils % (auto) 0.5 %; Eosinophils # (auto) 0.03 K/uL (0-0.50); Eosinophils % (auto) 0.4 %; Hematocrit (blood only) 40.3 % (34.1-44.9); Hemoglobin 13.7 g/dl (12.0-16.0); Immature Granulocytes # (auto) 0.02 K/uL (0.00-0.02); Immature Granulocytes % (auto) 0.2 %; Lymphocytes # (auto) 0.76 K/uL (1.2-3.4); Lymphocytes % (auto) 9.4 %; Mean Corpuscular Hemoglobin 31.3 pg (25.0-34.0); Mean Platelet Volume 11.3 fL (9.4-12.3); Monocytes # (auto) 0.95 K/uL (0.24-0.82); Monocytes % (auto) 11.8 %; Neutrophils # (auto) 6.27 K/uL (1.4-6.5); Neutrophils % (auto) 77.7 %; Platelet Count 200 K/uL (130-400); RDW Coefficient of Variation 12.6 % (11.5-14.5); RDW Standard Deviation 42.6 fL (36.4-46.3); Red Blood Count 4.38 M/uL (3.93-5.22); White Blood Count 8.07 K/ul (4.8-10.8)
[2022-05-08 22:52] LABS: iSTAT Creatinine 1.2 mg/dl (0.6-1.3); iSTAT Hemoglobin 14.3 g/dl (12.0-16.0); iSTAT Ionized Calcium 1.09 mmol/l (1.12-1.32); iSTAT Potassium 3.7 mmol/L (3.3-5.0)
[2022-05-08 22:53] LABS: Appearance Urine Clear (Clear); Bilirubin Urine Negative (Negative); Blood Urine Negative (Negative); Color Urine Yellow; Glucose Urine UA Negative (Negative); Ketones Urine Negative (Negative); Leukocyte Esterase Urine Negative (Negative); Nitrite Urine Negative (Negative); Protein Urine Negative (Negative); Specific Gravity Urine 1.013 (1.000-1.030); Urobilinogen Urine Negative (Negative); pH Urine 5.5 (4.5-7.5)
[2022-05-08] MEDS ORDERED: OPTIRAY 350 100ml IV ONE (23:01)
[2022-05-08 23:11] LABS: Albumin Globulin Ratio 1.2 (0.9-2); Albumin Level 3.7 gm/dl (3.4-5.0); BUN Creatinine Ratio 21.6 (10-20); Bilirubin,Total 0.9 mg/dl (0.2-1.0); Creatinine Clr Calc Pharmacy 33.2 ml/min; Est GFR (African American) 58.9 ml/min; Est GFR (Non-African American) 50.8 ml/min; Globulin 3.1 gm/dl (2.5-4.0); Potassium 3.5 mmol/L (3.5-5.1); Total Protein 6.8 gm/dl (6.0-8.3)
--- NOTE | 2022-05-08 23:23 | Emergency Department Note ---
Impression & Plan Falls, Dementia, Contusion of back, Abdominal wall contusion, Laceration of eyebrow, left, Contusion of knee ED Provider Note Provider: Sincere Royal MD DATE OF SERVICE: 05/08/2022 CHIEF COMPLAINT: Falls HISTORY OF PRESENT ILLNESS: Patient is a 80-year-old female history of atrial fibrillation, CHF, and dementia presenting here after several falls at her facility. Last several days several more falls. Family states she seems maybe a little more weak and confused. Is on Eliquis for history of A. fib. Has a cut to her left as well as some bruising on her back and right lower abdomen. Patient herself is not a good historian given her dementia. Patient states some tenderness to the areas of contusion in her right lower abdomen and back but denies other chest pain or palpitations. Denies headache or dizziness. REVIEW OF SYSTEMS: A total of 10 review of systems was obtained and negative except as stated above in the HPI. PAST MEDICAL HISTORY: As noted above MEDICATIONS: Reviewed home medications includes Eliquis SOCIAL HISTORY: Lives at [facility] PHYSICAL EXAM: GENERAL: alert in no acute distress on stretcher but not a good historian Head: Patient was on bandaging and swelling of the left lateral eyebrow. Underneath an approximately 2 cm lacerations present without foreign body. EYES: No injection, discharge or icterus. PERRL, EOMI. NECK: Trachea midline. Supple without posterior midline tenderness ENT: Mucous membranes pink and moist. LUNGS: Airway patent. No retractions. Breath sounds clear with good air entry bilaterally. HEART: Irregular regular rate and rhythm. No chest wall tenderness ABDOMEN: Soft with an approximately 4 x 8 cm right lower quadrant abdominal wall hematoma with some tenderness. No laceration. BACK: Patient with some slight lower SI tenderness. No step-offs. A mid to slightly left thoracic approximately 4 x 6 cm contusion. SKIN: Acyanotic, warm, dry, some scattered bruises around the knees as well as the upper extremities. EXTREMITIES: Some scattered bruising on the upper extremities. Some contusions of the bilateral knees with mild tenderness here. No significant calf swelling or tenderness. Soft compartments of bilateral forearms. NEUROLOGICAL: No focal deficits. No aphasia. No facial droop or slurred speech. Normal strength and tone in the extremities. Sensation to gross touch normal. Ambulatory. EK bpm atrial fibrillation no acute ST segment elevation with sliding baseline artifact. QTc 452. CONTINUOUS CARDIAC MONITORING: was ordered and showed a heart rate of 80s-90s bpm in atrial fibrillation Left and right knee x-rays by my interpretation: No evidence of fracture or dislocation. Replacement appears intact. Patient's laboratory studies and imaging reviewed. Differential includes Fracture, dislocation, contusion, intra-abdominal, pneumothorax, intrathoracic, intracranial, neurologic, compartment syndrome, rhabdomyolysis, as well as other pathologies. IMPRESSION/MEDICAL DECISION MAKING: Patient on Shayla suffered several falls according to family. Underlying cindy ntia but again may be a bit more weak. Not horribly confused by their report but may be a bit off. Underlying dementia unfortunately. Blood work without significant anemia or leukocytosis. Chemistries without severe abnormality. Minimal CK elevation but doubt rhabdomyolysis. Negative urinalysis. Negative COVID influenza RSV testing. High-sensitivity troponin not elevated. Cleaned eyebrow and laceration and had PA close laceration left lateral eyebrow which is small in nature. No evidence of significant trauma to the extremities. CT reports as below without significant trauma reported. Do see some subcutaneous right lower quadrant hematoma as well as a mid back hematoma on my review of the pictures. Patient with a bit of knee contusion and pain as well. History of replacement here but will obtain x-rays and per my review reassuring. Patient still with pain with movement here and does not seem to be able to ambulate. Not able to return to her memory facility without being able to ambulate. Discussed with family at bedside. Patient more calm and less irritable at this point. Low suspicion for acute CVA. Able to range the hips well without significant discomfort. Daughter very concerned over the patient's ambulatory difficulties since she is not really able to ambulate here. Given this well the hospitalist evaluate for further observation. DIAGNOSIS: Fall, eyebrow laceration, knee contusion, dementia, abdominal wall contusion, back contusion DISPOSITION: Hospitalist will evaluate Daughter in agreement with this plan. Preliminary Findings Only See Final Report For Complete Findings CT HEAD: No ICH, mass effect or edema. No skull fracture. Radiologist: Justo Mcneil MD Study ready at 23:23 and initial results transmitted at 23:29 Preliminary Findings Only See Final Report For Complete Findings CT C SPINE: No acute fracture or subluxation. Moderate to severe multilevel degenerative changes are noted. Radiologist: Justo Mcneil MD Study ready at 23:24 and initial results transmitted at 23:30 Preliminary Findings Only See Final Report For Complete Findings CT CHEST With Contrast: The examination is limited secondary to patient motion. No acute intrathoracic abnormality is noted. Radiologist: Justo Mcneil MD Study ready at 23:31 and initial results transmitted at 23:32 Preliminary Findings Only See Final Report For Complete Findings CT ABDOMEN & PELVIS With Contrast: The examination is limited secondary to patient motion no acute intra-abdominal pathology is identified. Radiologist: Justo Mcneil MD Study ready at 23:31 and initial results transmitted at 23:33 Past Med/Surg History Medical History Asthma Atrial fibrillation Carcinoma of right breast Dementia Depression Enlarged thyroid HTN (hypertension) Hypertension Hyperthyroidism Osteoarthritis Overactive bladder Surgical History History of biopsy History of cataract surgery History of section History of colonoscopy History of corneal transplant History of knee replacement procedure of left knee History of knee replacement procedure of right knee History of lumpectomy History of repair of rotator cuff History of total abdominal hysterectomy and bilateral salpingo-oophorectomy Family History Other No family history of adverse response to anesthesia Social History Smoking Status: Never smoker Second Hand Exposure: No; Hx Alcohol Use: Yes Hx Substance Use: No Preferred Language: Irish Communication Ability: Effective Technology Methodology Consultant Required: No Beliefs That Will Affect Care: None marital status: Current Living Situation: Personal Care Facility Current Living Situation Comment: [facility] How many Children do You have: 2 Feels Safe at Home: Yes Assistive Devices: None Allergies Allergies Allergy/AdvReac Type Severity Reaction Status Date / Time banana Allergy Intermediate Hives Verified 02/15/22 11:19 celecoxib Allergy Intermediate HIVES Verified 02/15/22 11:19 grape Allergy Intermediate Hives Verified 02/15/22 11:19 Penicillins Allergy Intermediate HIVES Verified 02/15/22 11:19 Home Meds Home Medications Medication Instructions Recorded Confirmed alendronate 35 mg tablet 35 mg PO WK 02/07/21 05/09/22 clindamycin HCl 300 mg capsule 600 mg PO DAILY PRN dental 02/07/21 05/09/22 appointments methimazole 5 mg tablet 2.5 mg PO QPM 02/07/21 05/09/22 nystatin-triamcinolone 100,000 1 applic topical BID PRN dermatitis 02/07/21 05/09/22 unit/g-0.1 % topical cream anastrozole 1 mg tablet 1 mg PO QAM 01/06/22 05/09/22 apixaban 5 mg tablet (Eliquis) 5 mg PO BID 01/06/22 05/09/22 diltiazem HCl 30 mg tablet 30 mg PO QAM 01/06/22 05/09/22 (Cardizem) metoprolol tartrate 50 mg tablet 50 mg PO BID 01/06/22 05/09/22 solifenacin 5 mg tablet (Vesicare) 5 mg PO HS 01/06/22 05/09/22 triamterene 37.5 1 tab PO QAM 01/06/22 05/09/22 mg-hydrochlorothiazide 25 mg tablet acetaminophen 325 mg tablet 650 mg PO Q4H PRN Fever Or Pain 05/09/22 05/09/22 buspirone 7.5 mg tablet 7.5 mg PO TID 05/09/22 05/09/22 fluorometholone 0.1 % eye 1 drp OPR QAM 05/09/22 05/09/22 drops,suspension food supplemt, lactose-reduced 1 ea PO TID 05/09/22 05/09/22 methimazole 5 mg tablet 5 mg PO QAM 05/09/22 05/09/22 prednisolone acetate 1 % eye 1 drp OPL TID 05/09/22 05/09/22 drops,suspension sertraline 100 mg tablet 100 mg PO DAILY 05/09/22 05/09/22 tramadol 50 mg tablet 50 mg PO Q6H PRN Pain 05/09/22 05/09/22 Results & Data (ED) Vital Signs Vital Signs - 24 hr 05/08/22 21:51 05/08/22 22:46 05/08/22 22:47 Temperature 36.5 C Temperature Source Oral Pulse Rate 86 Pulse Rate [Finger] 83 Pulse Rhythm [Finger] Pulse Strength [Finger] Respiratory Rate 20 20 Respiratory Depth Normal Blood Pressure 111/73 Blood Pressure [Right Arm] 100/64 Blood Pressure Mean 85 Blood Pressure Mean [Right Arm] 76 Pulse Oximetry 96 96 96 Oxygen Delivery Method Room Air Room Air Room Air Sepsis New/Unexplained Change in Mental Status Yes Sepsis Action Taken by Nursing No Action Required 05/08/22 23:30 05/09/22 01:00 Temperature Temperature Source Pulse Rate Pulse Rate [Finger] 99 H 90 Pulse Rhythm [Finger] Regular Pulse Strength [Finger] Normal Respiratory Rate 20 20 Respiratory Depth Blood Pressure Blood Pressure [Right Arm] 106/69 107/82 Blood Pressure Mean Blood Pressure Mean [Right Arm] 81 90 Pulse Oximetry 92 98 Oxygen Delivery Method Room Air Room Air Sepsis New/Unexplained Change in Mental Status Sepsis Action Taken by Nursing Laboratory Data Result diagrams: 05/08/22 22:30 05/08/22 22:30 Lab Results 05/08/22 05/08/22 05/08/22 Range/Units 22:04 22:30 22:30 WBC 8.07 (4.8-10.8) K/ul RBC 4.38 (3.93-5.22) M/uL Hgb 13.7 (12.0-16.0) g/dl POC Hgb (12.0-16.0) g/dl Hct 40.3 (34.1-44.9) % POC Hct (37-47) % MCV 92.0 (80.0-100.0) fL MCH 31.3 (25.0-34.0) pg MCHC 34.0 (32.0-36.0) g/dL RDW Std Deviation 42.6 (36.4-46.3) fL RDW Coeff of Curtis 12.6 (11.5-14.5) % Plt Count 200 (130-400) K/uL MPV 11.3 (9.4-12.3) fL Immature Gran % (Auto) 0.2 % Neut % (Auto) 77.7 % Lymph % (Auto) 9.4 % Mesa % (Auto) 11.8 % Eos % (Auto) 0.4 % Baso % (Auto) 0.5 % Neut # (Auto) 6.27 (1.4-6.5) K/uL Lymph # (Auto) 0.76 L (1.2-3.4) K/uL Mesa # (Auto) 0.95 H (0.24-0.82) K/uL Eos # (Auto) 0.03 (0-0.50) K/uL Baso # (Auto) 0.04 (0-0.2) K/uL Immature Gran # (Auto) 0.02 (0.00-0.02) K/uL PT 12.0 (9.0-12.0) Seconds INR 1.1 (0.9-1.1) POC Sodium (135-144) mmol/L Sodium 135 L (136-145) mmol/L POC Potassium (3.3-5.0) mmol/L Potassium 3.5 (3.5-5.1) mmol/L POC Chloride (101-112) mmol/L Chloride 96 L (98-107) mmol/L Carbon Dioxide 31 (21-32) mmol/L POC Total CO2 (24-31) mmol/L Anion Gap 8 (3-11) POC Anion Gap (16-25) mmol/L POC BUN (7-18) mg/dl BUN 22 (6-23) mg/dl Creatinine 1.02 (0.6-1.2) mg/dl POC Creatinine (0.6-1.3) mg/dl Est Cr Clr Drug Dosing 33.2 ml/min Est GFR ( Amer) 58.9 ml/min Est GFR (Non-Af Amer) 50.8 ml/min BUN/Creatinine Ratio 21.6 H (10-20) Glucose 115 H (70-99(Fasting)) mg/dl POC Glucose (other) (70-99) mg/dl Calcium 9.0 (8.5-10.1) mg/dl POC Ioniz Calcium Siri (1.12-1.32) mmol/l Total Bilirubin 0.9 (0.2-1.0) mg/dl AST 19 (13-39) U/L ALT 10 (7-52) U/L Alkaline Phosphatase 55 (34-104) U/L Total Creatine Kinase 243 H (26-192) U/L Troponin I High Sens 6.0 (0-14) pg/ml Total Protein 6.8 (6.0-8.3) gm/dl Albumin 3.7 (3.4-5.0) gm/dl Globulin 3.1 (2.5-4.0) gm/dl Albumin/Globulin Ratio 1.2 (0.9-2) Urine Color Urine Appearance (Clear) Urine pH (4.5-7.5) Ur Specific Amigo (1.000-1.030) Urine Protein (Negative) Urine Glucose (UA) (Negative) Urine Ketones (Negative) Urine Blood (Negative) Urine Nitrite (Negative) Urine Bilirubin (Negative) Urine Urobilinogen (Negative) Ur Leukocyte Esterase (Negative) SARS-CoV-2 (PCR) (Negative) Influenza Type A (PCR) (Neg) Influenza Type B (PCR) (Neg) RSV (RT-PCR) (Neg) 05/08/22 05/08/22 05/08/22 Range/Units 22:30 22:38 22:40 WBC (4.8-10.8) K/ul RBC (3.93-5.22) M/uL Hgb (12.0-16.0) g/dl POC Hgb 14.3 (12.0-16.0) g/dl Hct (34.1-44.9) % POC Hct 42 (37-47) % MCV (80.0-100.0) fL MCH (25.0-34.0) pg MCHC (32.0-36.0) g/dL RDW Std Deviation (36.4-46.3) fL RDW Coeff of Curtis (11.5-14.5) % Plt Count (130-400) K/uL MPV (9.4-12.3) fL Immature Gran % (Auto) % Neut % (Auto) % Lymph % (Auto) % Mesa % (Auto) % Eos % (Auto) % Baso % (Auto) % Neut # (Auto) (1.4-6.5) K/uL Lymph # (Auto) (1.2-3.4) K/uL Mesa # (Auto) (0.24-0.82) K/uL Eos # (Auto) (0-0.50) K/uL Baso # (Auto) (0-0.2) K/uL Immature Gran # (Auto) (0.00-0.02) K/uL PT (9.0-12.0) Seconds INR (0.9-1.1) POC Sodium 136 (135-144) mmol/L Sodium (136-145) mmol/L POC Potassium 3.7 (3.3-5.0) mmol/L Potassium (3.5-5.1) mmol/L POC Chloride 95 L (101-112) mmol/L Chloride (98-107) mmol/L Carbon Dioxide (21-32) mmol/L POC Total CO2 33 H (24-31) mmol/L Anion Gap (3-11) POC Anion Gap 12.0 L (16-25) mmol/L POC BUN 23 H (7-18) mg/dl BUN (6-23) mg/dl Creatinine (0.6-1.2) mg/dl POC Creatinine 1.2 (0.6-1.3) mg/dl Est Cr Clr Drug Dosing ml/min Est GFR ( Amer) ml/min Est GFR (Non-Af Amer) ml/min BUN/Creatinine Ratio (10-20) Glucose (70-99(Fasting)) mg/dl POC Glucose (other) 116 H (70-99) mg/dl Calcium (8.5-10.1) mg/dl POC Ioniz Calcium Siri 1.09 L (1.12-1.32) mmol/l Total Bilirubin (0.2-1.0) mg/dl AST (13-39) U/L ALT (7-52) U/L Alkaline Phosphatase (34-104) U/L Total Creatine Kinase (26-192) U/L Troponin I High Sens (0-14) pg/ml Total Protein (6.0-8.3) gm/dl Albumin (3.4-5.0) gm/dl Globulin (2.5-4.0) gm/dl Albumin/Globulin Ratio (0.9-2) Urine Color Yellow Urine Appearance Clear (Clear) Urine pH 5.5 (4.5-7.5) Ur Specific Amigo 1.013 (1.000-1.030) Urine Protein Negative (Negative) Urine Glucose (UA) Negative (Negative) Urine Ketones Negative (Negative) Urine Blood Negative (Negative) Urine Nitrite Negative (Negative) Urine Bilirubin Negative (Negative) Urine Urobilinogen Negative (Negative) Ur Leukocyte Esterase Negative (Negative) SARS-CoV-2 (PCR) NEGATIVE (Negative) Influenza Type A (PCR) Negative (Neg) Influenza Type B (PCR) Negative (Neg) RSV (RT-PCR) Negative (Neg) Administered Medications Discontinued Medications Ioversol (Optiray 350 100ml) 84 ml IV ONCE ONE Stop: 05/08/22 23:02 Last Admin: 05/08/22 23:01 Dose: 84 ml Documented By: EDK Lidocaine (Lidocaine/Epineph/Tetracaine 1 Ea Syr) Confirm Administered Dose 1 each EXT .STK-MED ONE Stop: 05/08/22 22:21 Last Admin: 05/08/22 22:35 Dose: 1 each Documented By: DWAYNE Lidocaine/Epinephrine (Lidocaine 1%/Epinephrine 1:100,000 50 Ml Vial) 50 ml INFIL NOW ONE Stop: 05/08/22 22:26 Last Admin: 05/09/22 01:25 Dose: Not Given Documented By: LEILAW Discharge Plan Visit Data Chief Complaint: Fall ED Provider: Sincere Royal Discharge Problem: Falls, Dementia, Contusion of back, Abdominal wall contusion, Laceration of eyebrow, left, Contusion of knee Patient Disposition: Being Evaluated by Hospitalist Forms Stand Alone Forms: [facility] Prescriptions Prescriptions: No Action clindamycin HCl 300 mg capsule 600 mg PO DAILY PRN (Reason: dental appointments) Rx Instructions: TAKE 1 HR BEFORE DENTAL APPT. alendronate 35 mg tablet 35 mg PO WK Label Comments: Patient states she doesnt know when she took her meds last Rx Instructions: take this med every Monday nystatin-triamcinolone 100,000-0.1 unit/g-% cream 1 applic TOPICAL BID PRN (Reason: dermatitis) methimazole 5 mg tablet 2.5 mg PO QPM Rx Instructions: TAKE 1/2 TAB @2000 triamterene-hydrochlorothiazid 37.5-25 mg tablet 1 tab PO QAM anastrozole 1 mg Tablet 1 mg PO QAM solifenacin [Vesicare] 5 mg Tablet 5 mg PO HS Eliquis 5 mg Tablet 5 mg PO BID metoprolol tartrate 50 mg tablet 50 mg PO BID diltiazem HCl [Cardizem] 30 mg tablet 30 mg PO QAM acetaminophen 325 mg Tablet 650 mg PO Q4H MDD 3g PRN (Reason: Fever Or Pain) buspirone 7.5 mg tablet 7.5 mg PO TID fluorometholone 0.1 % Drops,Suspension 1 drp OPR QAM methimazole 5 mg tablet 5 mg PO QAM prednisolone acetate 1 % drops,suspension 1 drp OPL TID sertraline 100 mg tablet 100 mg PO DAILY tramadol 50 mg tablet 50 mg PO Q6H PRN (Reason: Pain) Boost Liquid 1 ea PO TID Rx Instructions: nutritional supplement Referrals Referrals: Char Chow CRNP [Primary Care Provider] - : Falls Qualifiers: Encounter type: initial encounter Qualified Code(s): W19.XXXA - Unspecified fall, initial encounter Dementia Qualifiers: Dementia type: unspecified type Contusion of back Qualifiers: Encounter type: initial encounter Laterality: unspecified laterality Qualified Code(s): S20.229A - Contusion of unspecified back wall of thorax, initial encounter Abdominal wall contusion Qualifiers: Encounter type: initial encounter Qualified Code(s): S30.1XXA - Contusion of abdominal wall, initial encounter Laceration of eyebrow, left Qualifiers: Encounter type: initial encounter Qualified Code(s): S01.112A - Laceration without foreign body of left eyelid and periocular area, initial encounter Contusion of knee Qualifiers: Encounter type: initial encounter Laterality: unspecified laterality Qualified Code(s): S80.00XA - Contusion of unspecified knee, initial encounter
[2022-05-08 23:48] LABS: Influenza A virus by PCR Negative (Neg); Influenza B virus by PCR Negative (Neg); RSV by PCR Negative (Neg); SARS CoV2 RNA(COVID-19) Ceph NEGATIVE (Negative)
--- NOTE | 2022-05-09 00:10 | Emergency Department Note ---
ED Visit Note Patient was seen and evaluated by Dr. Royal. Please refer to his note regarding chief complaint, HPI, ROS, PE, MDM/disposition/plan. I was present for wound repair. There is an approximately 2 cm wound to the left lateral face region that is with macerated edges. Risks and benefits of performing primary wound closure versus no repair were discussed with the patient who verbalizes understanding. Verbal consent was obtained prior to performing the procedure. LET gel was used to anesthetize the facial laceration. The wound was cleansed an d prepped in the typical sterile fashion utilizing normal saline and Betadine. The wound was sterilely draped. Once proper anesthetization was established, the wound was further examined and demonstrated repairable wound without retained foreign body or deep structure injury. The wound was copiously irrigated with normal saline and Betadine. The wound was closed using 4 simple, 6-0 nylon sutures with the wound edges being well approximated. Patient tolerated the procedure well. No complications were met. Please refer to further documentation regarding her stay. . : Falls Qualifiers: Encounter type: initial encounter Qualified Code(s): W19.XXXA - Unspecified fall, initial encounter Dementia Qualifiers: Dementia type: unspecified type Contusion of back Qualifiers: Encounter type: initial encounter Laterality: unspecified laterality Qualified Code(s): S20.229A - Contusion of unspecified back wall of thorax, initial encounter Abdominal wall contusion Qualifiers: Encounter type: initial encounter Qualified Code(s): S30.1XXA - Contusion of abdominal wall, initial encounter Laceration of eyebrow, left Qualifiers: Encounter type: initial encounter Qualified Code(s): S01.112A - Laceration without foreign body of left eyelid and periocular area, initial encounter Contusion of knee Qualifiers: Encounter type: initial encounter Laterality: unspecified laterality Qualified Code(s): S80.00XA - Contusion of unspecified knee, initial encounter
--- NOTE | 2022-05-09 01:25 | History & Physical Report ---
Date of Service May 09, 2022 Assessment & Plan (1) Falls: Plan: Patient with frequent falls, etiology uncertain -Fall precautions -PT/OT evaluation -Repeat CK in AM -Tylenol as needed for pain (2) Contusion of back: Plan: Patient denies pain -Monitor CBC (3) Abdominal wall contusion: Plan: Patient denies pain. CT of the abdomen with no internal damage or bleeding -Monitor contusion -Monitor CBC (4) Asthma: Plan: No cough, SOB or wheeze -Albuterol PRN (5) Permanent atrial fibrillation: Plan: Rate controlled. On anticoagulation -Continue Diltiazem 30mg po qAM -Continue Metoprolol 50mg po BID -Hold Eliquis (6) HTN (hypertension): Plan: Blood pressure adequately controlled -Continue Metoprolol and Diltiazem -Monitor BP (7) Dementia: Plan: Patient with severe dementia -Frequent orientation -Monitor for delirium (8) Hyperthyroidism: Plan: Chronic. Check TSH -Continue Methimazole 5mg po qAM and 2.5mg po qPM History of Present Illness Chief Complaint: Fall Primary Care Provider: LUIS FERNANDO Flower Alissa Ernst is an 81yo female with history of Atrial Fibrillation on Eliquis anticoagulation presenting from [facility] following an unwitnessed fall. Daughter is at bedside and provides history as patient with dementia - does not recall the events prior to arrival. Patient has reportedly had several falls over the last 2 days. She was found down in her room prior to coming here. She has bruising on her anterior abdomen and back. Patient does not recall falling. She denies pain - denies CP, cough, SOB or palpitations. No additional complaints at this time. In the ER she is afebrile, HD stable, NAD. Allergies Allergy/AdvReac Type Severity Reaction Status Date / Time banana Allergy Intermediate Hives Verified 02/15/22 11:19 celecoxib Allergy Intermediate HIVES Verified 02/15/22 11:19 grape Allergy Intermediate Hives Verified 02/15/22 11:19 Penicillins Allergy Intermediate HIVES Verified 02/15/22 11:19 Home Medications Medication Instructions Recorded Confirmed Type alendronate 35 mg tablet 35 mg PO WK 02/07/21 05/09/22 History clindamycin HCl 300 mg capsule 600 mg PO DAILY PRN dental 02/07/21 05/09/22 History appointments methimazole 5 mg tablet 2.5 mg PO QPM 02/07/21 05/09/22 History nystatin-triamcinolone 100,000 1 applic topical BID PRN dermatitis 02/07/21 05/09/22 History unit/g-0.1 % topical cream anastrozole 1 mg tablet 1 mg PO QAM 01/06/22 05/09/22 History apixaban 5 mg tablet (Eliquis) 5 mg PO BID 01/06/22 05/09/22 History diltiazem HCl 30 mg tablet 30 mg PO QAM 01/06/22 05/09/22 History (Cardizem) metoprolol tartrate 50 mg tablet 50 mg PO BID 01/06/22 05/09/22 History solifenacin 5 mg tablet (Vesicare) 5 mg PO HS 01/06/22 05/09/22 History triamterene 37.5 1 tab PO QAM 01/06/22 05/09/22 History mg-hydrochlorothiazide 25 mg tablet acetaminophen 325 mg tablet 650 mg PO Q4H PRN Fever Or Pain 05/09/22 05/09/22 History buspirone 7.5 mg tablet 7.5 mg PO TID 05/09/22 05/09/22 History fluorometholone 0.1 % eye 1 drp OPR QAM 05/09/22 05/09/22 History drops,suspension food supplemt, lactose-reduced 1 ea PO TID 05/09/22 05/09/22 History methimazole 5 mg tablet 5 mg PO QAM 05/09/22 05/09/22 History prednisolone acetate 1 % eye 1 drp OPL TID 05/09/22 05/09/22 History drops,suspension sertraline 100 mg tablet 100 mg PO DAILY 05/09/22 05/09/22 History tramadol 50 mg tablet 50 mg PO Q6H PRN Pain 05/09/22 05/09/22 History Past Med/Surg History Medical History Asthma Atrial fibrillation Carcinoma of right breast Dementia Depression Enlarged thyroid HTN (hypertension) Hypertension Hyperthyroidism Osteoarthritis Overactive bladder Surgical History History of biopsy History of cataract surgery History of section History of colonoscopy History of corneal transplant History of knee replacement procedure of left knee History of knee replacement procedure of right knee History of lumpectomy History of repair of rotator cuff History of total abdominal hysterectomy and bilateral salpingo-oophorectomy Family History Other No family history of adverse response to anesthesia Social History Smoking Status: Never smoker Second Hand Exposure: No; Hx Alcohol Use: Yes Hx Substance Use: No Preferred Language: Kiswahili Communication Ability: Effective Multi Slide Machine Tender Required: No Beliefs That Will Affect Care: None marital status: Current Living Situation: Personal Care Facility Current Living Situation Comment: [facility] How many Children do You have: 2 Feels Safe at Home: Yes Assistive Devices: None Review of Systems Review of Systems: All systems reviewed & are unremarkable except as noted in HPI & below Physical Exam Physical Exam: General: patient with dementia, oriented to self only, confused Skin: bruising on anterior abdomen right and back HEENT: bruising over left eye, PERRL, EOMI, anicteric sclera, conjunctiva without injection, external ear normal to inspection and nontender, nares patent, moist mucus membranes, dentition intact, no oropharyngeal lesions, neck supple, trachea midline, no LAD, no thyromegaly, no JVD Heart: +S1/S2, irregularly irregular, no m/r/g Lungs: equal air entry bilaterally, no rales/rhonchi/wheezes Abd: +BS, soft, NT/ND, no masses/organomegaly/ascites Ext: warm, 2+ pulses in UE/LE bilaterally, no clubbing/cyanosis or edema Neuro: oriented to self, moving all extremities with equal strength Results & Data Results & Data ([facility]) Vital Signs (Past 12 Hours) Vital Signs Temp Pulse Pulse Resp BP BP Pulse Ox 05/09/22 01:00 90 20 107/82 98 05/08/22 23:30 99 H 20 106/69 92 05/08/22 22:47 83 20 100/64 96 05/08/22 22:46 96 05/08/22 21:51 36.5 C 86 20 111/73 96 O2 Del Method 05/09/22 01:00 Room Air 05/08/22 23:30 Room Air 05/08/22 22:47 Room Air 05/08/22 22:46 Room Air 05/08/22 21:51 Room Air Laboratory Results Laboratory Results WBC 8.07 K/ul (4.8-10.8) 05/08/22 22:30 RBC 4.38 M/uL (3.93-5.22) 05/08/22 22:30 Hgb 13.7 g/dl (12.0-16.0) 05/08/22 22:30 POC Hgb 14.3 g/dl (12.0-16.0) 05/08/22 22:38 Hct 40.3 % (34.1-44.9) 05/08/22 22:30 POC Hct 42 % (37-47) 05/08/22 22:38 MCV 92.0 fL (80.0-100.0) 05/08/22 22:30 MCH 31.3 pg (25.0-34.0) 05/08/22 22:30 MCHC 34.0 g/dL (32.0-36.0) 05/08/22 22:30 RDW Std Deviation 42.6 fL (36.4-46.3) 05/08/22 22:30 RDW Coeff of Curtis 12.6 % (11.5-14.5) 05/08/22 22:30 Plt Count 200 K/uL (130-400) 05/08/22 22:30 MPV 11.3 fL (9.4-12.3) 05/08/22 22:30 Immature Gran % (Auto) 0.2 % 05/08/22 22:30 Neut % (Auto) 77.7 % 05/08/22 22:30 Lymph % (Auto) 9.4 % 05/08/22 22:30 Casey % (Auto) 11.8 % 05/08/22 22:30 Eos % (Auto) 0.4 % 05/08/22 22:30 Baso % (Auto) 0.5 % 05/08/22 22:30 Neut # (Auto) 6.27 K/uL (1.4-6.5) 05/08/22 22:30 Lymph # (Auto) 0.76 K/uL (1.2-3.4) L 12/18/22 22:30 Casey # (Auto) 0.95 K/uL (0.24-0.82) H 05/08/22 22:30 Eos # (Auto) 0.03 K/uL (0-0.50) 05/08/22 22:30 Baso # (Auto) 0.04 K/uL (0-0.2) 05/08/22 22:30 Immature Gran # (Auto) 0.02 K/uL (0.00-0.02) 05/08/22 22:30 PT 12.0 Seconds (9.0-12.0) 05/08/22 22:04 INR 1.1 (0.9-1.1) 05/08/22 22:04 POC Sodium 136 mmol/L (135-144) 05/08/22 22:38 Sodium 135 mmol/L (136-145) L 05/08/22 22:30 POC Potassium 3.7 mmol/L (3.3-5.0) 05/08/22 22:38 Potassium 3.5 mmol/L (3.5-5.1) 05/08/22 22:30 POC Chloride 95 mmol/L (101-112) L 05/08/22 22:38 Chloride 96 mmol/L (98-107) L 05/08/22 22:30 Carbon Dioxide 31 mmol/L (21-32) 05/08/22 22:30 POC Total CO2 33 mmol/L (24-31) H 05/08/22 22:38 Anion Gap 8 (3-11) 05/08/22 22:30 POC Anion Gap 12.0 mmol/L (16-25) L 05/08/22 22:38 POC BUN 23 mg/dl (7-18) H 05/08/22 22:38 BUN 22 mg/dl (6-23) 05/08/22 22:30 Creatinine 1.02 mg/dl (0.6-1.2) 05/08/22 22:30 POC Creatinine 1.2 mg/dl (0.6-1.3) 05/08/22 22:38 Est Cr Clr Drug Dosing 33.2 ml/min 05/08/22 22:30 Est GFR ( Amer) 58.9 ml/min 05/08/22 22:30 Est GFR (Non-Af Amer) 50.8 ml/min 05/08/22 22:30 BUN/Creatinine Ratio 21.6 (10-20) H 05/08/22 22:30 Glucose 115 mg/dl (70-99(Fasting)) H 05/08/22 22:30 POC Glucose (other) 116 mg/dl (70-99) H 05/08/22 22:38 Calcium 9.0 mg/dl (8.5-10.1) 05/08/22 22: POC Ioniz Calcium Siri 1.09 mmol/l (1.12-1.32) L 05/08/22: Total Bilirubin 0.9 mg/dl (0.2-1.0) 05/08/22: AST 19 U/L (13-39) 05/08/22: ALT 10 U/L (7-52) 05/08/22 22: Alkaline Phosphatase 55 U/L (34-104) 05/08/22: Total Creatine Kinase 243 U/L (26-192) H 05/08/22 22:30 Troponin I High Sens 6.0 pg/ml (0-14) 05/08/22 22:30 Total Protein 6.8 gm/dl (6.0-8.3) 05/08/22 22: Albumin 3.7 gm/dl (3.4-5.0) 05/08/22 22:30 Globulin 3.1 gm/dl (2.5-4.0) 05/08/22 22: Albumin/Globulin Ratio 1.2 (0.9-2) 05/08/22 22: Urine Color Yellow 05/08/22:40 Urine Appearance Clear (Clear) 05/08/22:40 Urine pH 5.5 (4.5-7.5) 05/08/22:40 Ur Specific [place] 1.013 (1.000-1.030) 05/08/22:40 Urine Protein Negative (Negative) 05/08/22:40 Urine Glucose (UA) Negative (Negative) 05/08/22:40 Urine Ketones Negative (Negative) 05/08/22:40 Urine Blood Negative (Negative) 05/08/22: Urine Nitrite Negative (Negative) 12/18/22 22:40 Urine Bilirubin Negative (Negative) 05/08/22 22:40 Urine Urobilinogen Negative (Negative) 05/08/22 22:40 Ur Leukocyte Esterase Negative (Negative) 05/08/22 22:40 SARS-CoV-2 (PCR) NEGATIVE (Negative) 05/08/22 22:30 Influenza Type A (PCR) Negative (Neg) 05/08/22 22:30 Influenza Type B (PCR) Negative (Neg) 05/08/22 22:30 RSV (RT-PCR) Negative (Neg) 05/08/22 22:30 PG Care Time/CCT Total # of Minutes Spent Total Time Spent with Patient: Total time spent is greater than 50% in coordination of care (as documented) at patient's floor/unit and/or counseling patient: Coding Level of Care Code 59335 Initial Inpt Care Lvl 3 Diagnoses Falls W19.XXXA Encounter type: initial encounter Contusion of back S20.229A Encounter type: initial encounter Laterality: unspecified laterality Abdominal wall contusion S30.1XXA Encounter type: initial encounter Asthma J45.909 Permanent atrial fibrillation I48.21 HTN (hypertension) I10 Dementia F03.90 Dementia type: unspecified type Hyperthyroidism E05.90 (1) Falls Encounter type: initial encounter Qualified Code(s): W19.XXXA - Unspecified fall, initial encounter (2) Contusion of back Encounter type: initial encounter Laterality: unspecified laterality Qualified Code(s): S20.229A - Contusion of unspecified back wall of thorax, init ial encounter (3) Abdominal wall contusion Encounter type: initial encounter Qualified Code(s): S30.1XXA - Contusion of abdominal wall, initial encounter (4) Dementia Dementia type: unspecified type
[2022-05-09] MEDS ORDERED: traMADol HCL 50 MG TABLET PO PRN (02:52)
[2022-05-09] MEDS ORDERED: ACETAMINOPHEN 325 MG TAB PO PRN (02:52)
[2022-05-09] MEDS ORDERED: LACTATED RINGER'S 1,000 ML IV SCH (02:52)
--- NOTE | 2022-05-09 07:22 | CT Scan Report ---
HEAD CT NONCONTRAST CT DOSE: HISTORY: fall on eliquis TECHNIQUE: Multiaxial CT images of the head were performed without the use of intravenous contrast. A utomated exposure control was utilized for this study. A dose lowering technique was utilized adheri ng to the principles of ALARA. Comparison: Head CT 02/07/2021. Findings: The paranasal sinuses and mastoid air cells are clear. There is trace intraventricular hemo rrhage noted. Questionable trace anterior interhemispheric subdural hemorrhage best seen on axial adriel ge 19. The ventricles and sulci demonstrate mild age-related involutional changes. There is no mass, midline shift, or acute infarct. Left periorbital soft tissue swelling is noted. Impression: Trace intracranial hemorrhage as described above. [address] follow-up recommended to ensure sta bility. This report was called/faxed to the emergency department following dictation. ACT 112: Negative or not required by law. Electronically signed by: Prashant Nielsen M.D. 05/09/2022 7:21 AM
--- NOTE | 2022-05-09 07:33 | CT Scan Report ---
CERVICAL SPINE CT CT DOSE: 3134.74 mGy.cm HISTORY: fall TECHNIQUE: Multiaxial CT images of the cervical spine were performed and reformatted in the sagittal and coronal plane without the use of contrast. A dose lowering technique was utilized adhering to th e principles of ALARA. COMPARISON: Thyroid ultrasound 08/01/2007. FINDINGS: No fractures. No subluxation. Prevertebral soft tissues and the C1-C2 interval are intact. No pneumothorax. Multinodular thyroid gland again noted. IMPRESSION: No fractures within the cervical spine. ACT 112: Negative or not required by law. Electronically signed by: Prashant Nielsen M.D. 05/09/2022 7:31 AM
--- NOTE | 2022-05-09 07:56 | CT Scan Report ---
CT SCAN OF THE CHEST, ABDOMEN, AND PELVIS WITH IV CONTRAST CLINICAL HISTORY: Fall. COMPARISON STUDY: Chest x-ray dated 02/07/2021. Pelvic MRI dated 10/25/2007. TECHNIQUE: Following the IV administration of 84 of Optiray 350, CT scan of the chest, abdomen, and p demetri was performed from the thoracic inlet to the proximal femora. Images are reviewed in the axial, sagittal, and coronal planes. IV contrast was administered without complication. A dose lowering te chnique was utilized adhering to the principles of ALARA. The examination is degraded by streak artif act from the arms which could not be elevated above the chest or abdomen. There is also motion. FINDINGS: CHEST: Thyroid: The thyroid gland is enlarged and heterogeneous, typical for goiter. Thoracic aorta: The thoracic aorta is normal in caliber and demonstrates standard 3-vessel arch anato my. No dissection is seen. Pulmonary vasculature: The pulmonary trunk is normal in caliber. There are no filling defects identif ied in the central pulmonary vessels to indicate pulmonary embolus. Note that this examination was no t protocoled for evaluation of the pulmonary arteries. Heart: The heart is enlarged noting trace pericardial effusion. Lungs and pleural spaces: Evaluation of the lung parenchyma is compromised by motion artifact. There is no airspace consolidation, pleural effusion, or pneumothorax. The trachea and central airways are clear. A 3 mm right lower lobe pulmonary nodule seen on image #145. Mediastinum: There is no mediastinal hematoma or lymphadenopathy. Natalya: Clear. Axillae: There is no axillary lymphadenopathy. Bony thorax: The skeletal structures are osteopenic. Degenerative change and kyphoscoliosis is noted in the thoracic spine with evidence of DISH. No lytic or blastic lesions are identified. There is chr onic posttraumatic deformity of the sternum. There are chronic-appearing bilateral rib fractures. No acute fracture is clearly seen involving the bony thorax. ABDOMEN AND PELVIS: Liver: The contrast-enhanced liver is normal in size, contour, and attenuation. There is no intra- or extrahepatic biliary ductal dilatation. The hepatic veins and portal veins are patent. Gallbladder: Unremarkable. Spleen: Normal in size and attenuation. Pancreas: Atrophic and grossly unremarkable. Adrenal glands: Unremarkable. Kidneys: The contrast enhanced kidneys demonstrate mild cortical atrophy and are without hydronephros is. The kidneys enhance and excrete symmetrically. Scattered renal cysts measure 2.7 cm. A complex an d possibly enhancing lesion in the left lower pole image #137 measures 1.6 cm. Abdominal vasculature: The abdominal aorta is normal in course and caliber noting mild atheroscleroti c calcification. Bowel: There is moderate to advanced colonic diverticulosis without CT evidence of acute diverticulit is. No bowel obstruction is seen. [id number] fecal retention is seen throughout the colon. The appendix is not identified and may be surgically absent. Peritoneum: There is no intraperitoneal free air or abdominal ascites. Lymphadenopathy: None. Pelvic viscera: The bladder is decompressed around a [place]field catheter and contains excreted IV contrast . The uterus is surgically absent. No adnexal lesion is seen. Skeletal structures: The skeletal structures are osteopenic. Question an age indeterminant right gonzalez sverse process fracture of L1. The lumbosacral spine, bony pelvis, and proximal femora otherwise appe ar intact. No lytic or blastic lesions are seen. There is moderate lumbosacral spondylosis and scolio sis. Sclerotic change is noted in the pubic symphysis. Soft tissues: Soft tissue hematoma overlies the right anterior superior iliac spine on axial image #2 36. This measures approximately 8 x 6 x 3 cm. IMPRESSION: 1. Streak and motion degraded examination. 2. There is no acute posttraumatic intrathoracic abnormality. 3. There is no airspace consolidation, pleural effusion, or pneumothorax. 4. There is no evidence of solid organ injury in the abdomen or pelvis. 5. There is a soft tissue hematoma overlying the right iliac crest as above. 6. Question age indeterminant fracture of the right transverse process of L1. Correlate for point ten derness. 7. No additional acute fracture is suggested. 8. There is an indeterminant complex and possibly enhancing 1.6 cm lesion in the lower pole of the le ft kidney. Follow-up with a contrast-enhanced renal protocol MRI is recommended for further assessmen t. 9. Cardiomegaly. 10. Additional findings as above. ACT 112: Positive. There are findings on this exam that require communication between the performing entity and the patient following Patient Test Result Information Act ([place] Act 112) guidelines. Electronically signed by: Jt Stiles M.D. 05/09/2022 7:55 AM
[2022-05-09] MEDS ORDERED: NON-FORMULARY MEDICATION (Food Supplemt, Lactose-Reduced Liquid) PO SCH (09:00)
[2022-05-09] MEDS ORDERED: TRIAMTERENE/HCTZ 37.5/25MG TAB PO SCH (09:00)
--- NOTE | 2022-05-09 09:12 | XRay Report ---
RIGHT KNEE 3 VIEWS; LEFT KNEE 3 VIEWS CLINICAL HISTORY: Fall. Bilateral knee pain. FINDINGS: AP and crosstable lateral views of the right and left knee with a sunrise view of both kne es are obtained. No prior studies are available for comparison at the time of dictation. The skeletal structures are osteopenic. There is no radiographic evidence of acute fracture involving either knee . Bilateral knee arthroplasties are in near anatomic alignment. No periprosthetic lucency is identifi ed in either knee. A small joint effusion is suggested on the left. Mild prepatellar soft tissue swel ling is seen bilaterally. IMPRESSION: 1. Prepatellar soft tissue swelling with no radiographic evidence of fracture involving the right or left knee. 2. Bilateral knee arthroplasties are in near-anatomic alignment. 3. Suspect a small joint effusion on the left. Electronically signed by: Jt Stiles M.D. 05/09/2022 9:11 AM
[2022-05-09] MEDS: METOPROLOL TARTRATE 50 MG TAB PO SCH ×2 (09:32→21:38)
[2022-05-09] MEDS: prednisoLONE acetate 1% OP SUSP 5 ML BTL OPL SCH ×3 (09:32→21:39)
[2022-05-09] MEDS: ANASTROZOLE 1 MG TAB PO SCH (09:33)
[2022-05-09] MEDS: busPIRone 7.5 MG TAB PO SCH ×3 (09:33→19:21)
[2022-05-09] MEDS: SERTRALINE HCL 100 MG TABLET PO SCH (09:33)
[2022-05-09] MEDS: methIMAzole 5 MG TABLET PO SCH ×2 (09:33→21:38)
[2022-05-09] MEDS: dilTIAZem HCL 30 MG TAB PO SCH (09:33)
[2022-05-09 10:54] LABS: iSTAT Creatinine 1.2 mg/dl (0.6-1.3); iSTAT Hemoglobin 14.3 g/dl (12.0-16.0); iSTAT Ionized Calcium 1.09 mmol/l (1.12-1.32); iSTAT Potassium 3.7 mmol/L (3.3-5.0)
--- NOTE | 2022-05-09 12:27 | CT Scan Report ---
CT OF THE HEAD WITHOUT CONTRAST CLINICAL HISTORY: Intracranial hemorrhage; interval change COMPARISON STUDY: Head CT May 08, 2022. CT DOSE: 1553.72 mGycm TECHNIQUE: Helical axial images of the head were obtained without IV contrast. Automated exposure con trol was utilized for the study. A dose lowering technique was utilized adhering to the principles o f ALARA. FINDINGS: A 1.2 cm focus of acute hemorrhage within the posterior body of the right lateral ventricle adjacent to the septum pellucidum is similar to prior CT. Trace hemorrhage within the occipital horn of the right lateral ventricle is noted. This is unchanged. Hemorrhage within the occipital horn of the left lateral ventricle is no longer identified. Trace hemorrhage along anterior falx is stable to slightly decreased. No new sites of hemorrhage are present. Basal cisterns are patent. Exam is mildl y compromised by motion artifact. Ventricular system is stable. There is a left periorbital contusion . There is no acute calvarial fracture. Globes are intact. IMPRESSION: No significant change in minimal acute intraventricular hemorrhage and subdural hemorrhage along the anterior falx, as described above. No evidence for hydrocephalus. A follow-up head CT in 24 hours is recommended. ACT 112: Negative or not required by law. Electronically signed by: Alfonzo Noble M.D. 05/09/2022 12:25 PM
[2022-05-09] MEDS ORDERED: risperiDONE ODT 0.5 MG SOLTAB PO PRN (17:47)
[2022-05-09] MEDS: MELATONIN 3 MG TAB PO SCH (19:21)
--- NOTE | 2022-05-09 20:08 | Hospitalist Progress Note ---
Date of Service May 09, 2022 Assessment & Plan (1) ICH (intracerebral hemorrhage): Plan: 2nd to head trauma from fall in the setting of chronic anticoagulation use mild intra-ventricular hemorrhage and tiny SDH repeat head CT early this afternoon with no changes will repeat head CT again in am on 05/10 neuro checks q2h I spoke with pt's daughter - family does not desire any aggressive measures even if the bleeding worsens given her advanced dementia (2) Laceration of eyebrow, left: Plan: s/p suture repair remove sutures in ~7 days local wound care (3) Falls: Plan: check B12 and B1 in am -Fall precautions -PT/OT evaluations CPK slightly elevated 2nd to fall - repeat CPK am (4) Contusion of back: (5) Abdominal wall contusion: Plan: CT abd/pelvis without internal injuries, retroperitoneal bleeding, etc check cbc am serial exams (6) Asthma: Plan: without exacerbation (7) Permanent atrial fibrillation: Plan: Rate controlled. On anticoagulation typically at baseline HOLD ELIQUIS 2nd #1 -Continue Diltiazem 30mg po qAM -Continue Metoprolol 50mg po BID (8) HTN (hypertension): Plan: Blood pressure adequately controlled at this time, even low-normal at times HOLD HCTZ Continue Metoprolol and Diltiazem (9) Dementia: Plan: severe, advanced I am concern she will have severe sundowning tonight and hospital delirium in light of dementia & head injury melatonin 3mg HS scheduled risperdal HS prn severe agitation (10) Hyperthyroidism: Plan: TSH wnl Continue Methimazole 5mg po qAM and 2.5mg po qPM Plan daughter updated this am about ICH left message for daughter again this evening stating that ICH on repeat head CT was stable cont observation Admission and Anticipated Discharge Date Admission Date: May 09, 2022 Subjective patient dangling her legs off the bed when I entered the room very confused, shifting from topic to topic with no sensible coversational speech she pointed at the door several times unable to provide any meaningful history Review of Systems Review of Systems: able to deny the following - neuro - headache cv - chest pain pulm - dyspnea GI - abdominal pain Physical Exam Physical Exam: gen - very confused, oriented to person only, NAD, restless head - laceration near L eye with sutures intact face - mild bruising left upper face only mouth - MMM neck - no JVD heart - irregular, s1 s2 lungs - CTA b/l abd - soft NT ND BS+ ext - trace edema, pulses 2+ b/l musculo - b/l knees with scars from prior replacement, no signs of trauma psych - oriented to person only Results & Data Results & Data ([place]) Vital Signs (Past 12 Hours) Vital Signs Temp Pulse Resp BP Pulse Ox O2 Del Method 05/09/22 15:45 36.7 C 84 18 122/79 95 Room Air Laboratory Results Laboratory Results - last 24 hr 05/08/22 05/08/22 05/08/22 22:04 22:30 22:30 WBC 8.07 RBC 4.38 Hgb 13.7 POC Hgb Hct 40.3 POC Hct MCV 92.0 MCH 31.3 MCHC 34.0 RDW Std Deviation 42.6 RDW Coeff of Curtis 12.6 Plt Count 200 MPV 11.3 Immature Gran % (Auto) 0.2 Neut % (Auto) 77.7 Lymph % (Auto) 9.4 [place] % (Auto) 11.8 Eos % (Auto) 0.4 Baso % (Auto) 0.5 Neut # (Auto) 6.27 Lymph # (Auto) 0.76 L [place] # (Auto) 0.95 H Eos # (Auto) 0.03 Baso # (Auto) 0.04 Immature Gran # (Auto) 0.02 PT 12.0 INR 1.1 POC Sodium Sodium 135 L POC Potassium Potassium 3.5 POC Chloride Chloride 96 L Carbon Dioxide 31 POC Total CO2 Anion Gap 8 POC Anion Gap POC BUN BUN 22 Creatinine 1.02 POC Creatinine Est Cr Clr Drug Dosing 33.2 Est GFR ( Amer) 58.9 Est GFR (Non-Af Amer) 50.8 BUN/Creatinine Ratio 21.6 H Glucose 115 H POC Glucose (other) Calcium 9.0 POC Ioniz Calcium Siri Total Bilirubin 0.9 AST 19 ALT 10 Alkaline Phosphatase 55 Total Creatine Kinase 243 H Troponin I High Sens 6.0 Total Protein 6.8 Albumin 3.7 Globulin 3.1 Albumin/Globulin Ratio 1.2 TSH Urine Color Urine Appearance Urine pH Ur Specific [place] Urine Protein Urine Glucose (UA) Urine Ketones Urine Blood Urine Nitrite Urine Bilirubin Urine Urobilinogen Ur Leukocyte Esterase Nasal Screen MRSA (PCR) SARS-CoV-2 (PCR) Influenza Type A (PCR) Influenza Type B (PCR) RSV (RT-PCR) 05/08/22 05/08/22 05/08/22 22:30 22:38 22:38 WBC RBC Hgb POC Hgb 14.3 14.3 Hct POC Hct 42 42 MCV MCH MCHC RDW Std Deviation RDW Coeff of Curtis Plt Count MPV Immature Gran % (Auto) Neut % (Auto) Lymph % (Auto) [place] % (Auto) Eos % (Auto) Baso % (Auto) Neut # (Auto) Lymph # (Auto) [place] # (Auto) Eos # (Auto) Baso # (Auto) Immature Gran # (Auto) PT INR POC Sodium 136 136 Sodium POC Potassium 3.7 3.7 Potassium POC Chloride 95 L 95 L Chloride Carbon Dioxide POC Total CO2 33 H 33 H Anion Gap POC Anion Gap 12.0 L 12.0 L POC BUN 23 H 23 H BUN Creatinine POC Creatinine 1.2 1.2 Est Cr Clr Drug Dosing Est GFR ( Amer) Est GFR (Non-Af Amer) BUN/Creatinine Ratio Glucose POC Glucose (other) 116 H 116 H Calcium POC Ioniz Calcium Siri 1.09 L 1.09 L Total Bilirubin AST ALT Alkaline Phosphatase Total Creatine Kinase Troponin I High Sens Total Protein Albumin Globulin Albumin/Globulin Ratio TSH Urine Color Urine Appearance Urine pH Ur Specific [place] Urine Protein Urine Glucose (UA) Urine Ketones Urine Blood Urine Nitrite Urine Bilirubin Urine Urobilinogen Ur Leukocyte Esterase Nasal Screen MRSA (PCR) SARS-CoV-2 (PCR) NEGATIVE Influenza Type A (PCR) Negative Influenza Type B (PCR) Negative RSV (RT-PCR) Negative 05/08/22 05/09/22 05/09/22 22:40 07:12 07:12 WBC RBC Hgb POC Hgb Hct POC Hct MCV MCH MCHC RDW Std Deviation RDW Coeff of Curtis Plt Count MPV Immature Gran % (Auto) Neut % (Auto) Lymph % (Auto) [place] % (Auto) Eos % (Auto) Baso % (Auto) Neut # (Auto) Lymph # (Auto) [place] # (Auto) Eos # (Auto) Baso # (Auto) Immature Gran # (Auto) PT INR POC Sodium Sodium POC Potassium Potassium POC Chloride Chloride Carbon Dioxide POC Total CO2 Anion Gap POC Anion Gap POC BUN BUN Creatinine POC Creatinine Est Cr Clr Drug Dosing Est GFR ( Amer) Est GFR (Non-Af Amer) BUN/Creatinine Ratio Glucose POC Glucose (other) Calcium POC Ioniz Calcium Siri Total Bilirubin AST ALT Alkaline Phosphatase Total Creatine Kinase 334 H Troponin I High Sens Total Protein Albumin Globulin Albumin/Globulin Ratio TSH 4.378 Urine Color Yellow Urine Appearance Clear Urine pH 5.5 Ur Specific [place] 1.013 Urine Protein Negative Urine Glucose (UA) Negative Urine Ketones Negative Urine Blood Negative Urine Nitrite Negative Urine Bilirubin Negative Urine Urobilinogen Negative Ur Leukocyte Esterase Negative Nasal Screen MRSA (PCR) SARS-CoV-2 (PCR) Influenza Type A (PCR) Influenza Type B (PCR) RSV (RT-PCR) 05/09/22 Unknown WBC RBC Hgb POC Hgb Hct POC Hct MCV MCH MCHC RDW Std Deviation RDW Coeff of Curtis Plt Count MPV Immature Gran % (Auto) Neut % (Auto) Lymph % (Auto) [place] % (Auto) Eos % (Auto) Baso % (Auto) Neut # (Auto) Lymph # (Auto) [place] # (Auto) Eos # (Auto) Baso # (Auto) Immature Gran # (Auto) PT INR POC Sodium Sodium POC Potassium Potassium POC Chloride Chloride Carbon Dioxide POC Total CO2 Anion Gap POC Anion Gap POC BUN BUN Creatinine POC Creatinine Est Cr Clr Drug Dosing Est GFR ( Amer) Est GFR (Non-Af Amer) BUN/Creatinine Ratio Glucose POC Glucose (other) Calcium POC Ioniz Calcium Siri Total Bilirubin AST ALT Alkaline Phosphatase Total Creatine Kinase Troponin I High Sens Total Protein Albumin Globulin Albumin/Globulin Ratio TSH Urine Color Urine Appearance Urine pH Ur Specific [place] Urine Protein Urine Glucose (UA) Urine Ketones Urine Blood Urine Nitrite Urine Bilirubin Urine Urobilinogen Ur Leukocyte Esterase Nasal Screen MRSA (PCR) Negative SARS-CoV-2 (PCR) Influenza Type A (PCR) Influenza Type B (PCR) RSV (RT-PCR) PG Care Time/CCT Total # of Minutes Spent Total Time Spent with Patient: Total time spent is greater than 50% in coordination of care (as documented) at patient's floor/unit and/or counseling patient: Coding Level of Care Code 80869 Subseq Obs Care Lvl 3 Diagnoses ICH (intracerebral hemorrhage) I61.9 Laceration of eyebrow, left S01.112A Encounter type: initial encounter Falls W19.XXXA Encounter type: initial encounter Contusion of back S20.229A Encounter type: initial encounter Laterality: unspecified laterality Abdominal wall contusion S30.1XXA Encounter type: initial encounter Asthma J45.909 Permanent atrial fibrillation I48.21 HTN (hypertension) I10 Dementia F03.90 Dementia type: unspecified type Hyperthyroidism E05.90 (1) Abdominal wall contusion Encounter type: initial encounter Qualified Code(s): S30.1XXA - Contusion of abdominal wall, initial encounter (2) Contusion of back Encounter type: initial encounter Laterality: unspecified laterality Qualified Code(s): S20.229A - Contusion of unspecified back wall of thorax, init ial encounter (3) Dementia Dementia type: unspecified type (4) Falls Encounter type: initial encounter Qualified Code(s): W19.XXXA - Unspecified fall, initial encounter (5) Laceration of eyebrow, left Encounter type: initial encounter Qualified Code(s): S01.112A - Laceration without foreign body of left eyelid and periocular area, initial encounter
[2022-05-09] MEDS ORDERED: risperiDONE ODT 0.5 MG SOLTAB PO SCH (21:00)
--- NOTE | 2022-05-10 06:54 | Electrocardiogram Report ---
Test Reason : Blood Pressure : / mmHG Vent. Rate : 089 BPM Atrial Rate : 093 BPM P-R Int : 000 ms QRS Dur : 082 ms QT Int : 372 ms P-R-T Axes : 000 -01 058 degrees QTc Int : 452 ms Atrial fibrillation Cannot rule out Anteroseptal infarct (cited on or before 08-MAY-2022) Nonspecific T wave abnormality Abnormal ECG When compared with ECG of 07-FEB-2021 12:56, Vent. rate has decreased BY 51 BPM Questionable change in initial forces of Anterior leads Nonspecific T wave abnormality now evident in Anterior leads Confirmed by Real Self ([id number]) on 05/10/2022 6:53:45 AM Referred By: REFERRED SELF Confirmed By:Real Self
[2022-05-10] MEDS: METOPROLOL TARTRATE 50 MG TAB PO SCH ×2 (08:07→21:36)
[2022-05-10] MEDS: methIMAzole 5 MG TABLET PO SCH ×2 (08:08→21:36)
[2022-05-10] MEDS: ANASTROZOLE 1 MG TAB PO SCH (08:08)
[2022-05-10] MEDS: SERTRALINE HCL 100 MG TABLET PO SCH (08:09)
[2022-05-10] MEDS: dilTIAZem HCL 30 MG TAB PO SCH (08:09)
[2022-05-10] MEDS: prednisoLONE acetate 1% OP SUSP 5 ML BTL OPL SCH ×3 (08:10→21:39)
[2022-05-10] MEDS: busPIRone 7.5 MG TAB PO SCH ×3 (08:10→21:37)
[2022-05-10 08:51] LABS: Hematocrit (blood only) 38.7 % (34.1-44.9); Hemoglobin 13.4 g/dl (12.0-16.0); Mean Corpuscular Hemoglobin 31.2 pg (25.0-34.0); Mean Corpuscular Hgb Conc 34.6 g/dL (32.0-36.0); Mean Corpuscular Volume 90.2 fL (80.0-100.0); Mean Platelet Volume 11.4 fL (9.4-12.3); Platelet Count 211 K/uL (130-400); RDW Coefficient of Variation 12.5 % (11.5-14.5); RDW Standard Deviation 41.1 fL (36.4-46.3); Red Blood Count 4.29 M/uL (3.93-5.22); White Blood Count 8.48 K/ul (4.8-10.8)
[2022-05-10 09:55] LABS: BUN Creatinine Ratio 19.7 (10-20); Calcium 8.7 mg/dl (8.5-10.1); Creatinine Clr Calc Pharmacy 55.2 ml/min; Est GFR (African American) 97.2 ml/min; Est GFR (Non-African American) 83.8 ml/min; Potassium 2.9 mmol/L (3.5-5.1)
[2022-05-10] MEDS: POTASSIUM CHLORIDE / WTR 10 MEQ/100 ML PLCT IV SCH ×2 (12:01→13:20)
--- NOTE | 2022-05-10 13:16 | CT Scan Report ---
CT head/brain wo con CLINICAL HISTORY: ICH, interval change Technique: Contiguous axial CT images of the head were acquired from the base of the skull to the julieth dilshad without intravenous contrast administration. Images were viewed in brain, subdural and bone [facility]ane[facility] hospital. Automated dose lowering techniques and/or adjustment according to patient size were utilized for this exam. Comparison: Comparison is made to CT head 05/09/2022 Findings: Stable appearance of intraventricular hemorrhage in the occipital horn of the right lateral ventricle . The septum pellucidum hemorrhage is unchanged. Anterior falx hyperdensity is less evident on today' s exam. Redemonstration of soft tissue swelling in the left periorbital soft tissues. Imaged portions of the paranasal sinuses and mastoid air cells are clear. The orbits appear normal. Impression: No significant change in trace right intraventricular hemorrhage and subdural hemorrhage along the an terior falx and septum pellucidum. ACT 112: Negative or not required by law. Electronically signed by: Lele Riley M.D. 05/10/2022 1:14 PM
[2022-05-10] MEDS: POTASSIUM CHLORIDE PWD 20 MEQ PACK PO SCH ×2 (15:21→21:39)
[2022-05-10] MEDS: MELATONIN 3 MG TAB PO SCH (21:38)
[2022-05-10] MEDS: risperiDONE ODT 0.5 MG SOLTAB PO PRN (21:38)
[2022-05-10] MEDS: THIAMINE HCL 200 MG in SODIUM CHLORIDE 0.9% 50 ML IV SCH (21:39)
--- NOTE | 2022-05-11 07:46 | Hospitalist Progress Note ---
Date of Service May 10, 2022 Assessment & Plan (1) ICH (intracerebral hemorrhage): Plan: 2nd to head trauma from fall in the setting of chronic anticoagulation use mild intra-ventricular hemorrhage and tiny SDH on serial CTs repeat head CT today unchanged and in 1 location is actually improved no signs of increased intracranial pressure cont close observation patient was able to tell me she has had no headache since 3 head CTs are stable can likely repeat another CT in 1-2 weeks for stability cont to remain off all anticoagulation and anti-platelet agents would keep off anticoagulation indefinitely - in light of advanced dementia risks outweigh benefits I spoke with pt's daughter - family does not desire any aggressive measures even if the bleeding ever worsened given her advanced dementia (2) Laceration of eyebrow, left: Plan: s/p suture repair remove sutures in ~7 days local wound care (3) Falls: Plan: B12 level wnl B1 level pending while awaiting B1 level place on empiric thiamine 200mg BID -Fall precautions -PT/OT evaluations CPK slightly elevated 2nd to fall - repeat CPK today stable (4) Contusion of back: (5) Abdominal wall contusion: Plan: CT abd/pelvis without internal injuries, retroperitoneal bleeding, etc CBC stable hematoma right side of abdominal wall - no surgical intervention cool compresses another 1-2 days then switch to heat to promote resolution keep off anticoagulation (6) Asthma: Plan: without exacerbation (7) Permanent atrial fibrillation: Plan: Rate controlled. On anticoagulation typically at baseline HOLD ELIQUIS 2nd #1 and #5 -Continue Diltiazem 30mg po qAM -Continue Metoprolol 50mg po BID (8) HTN (hypertension): Plan: Blood pressure adequately controlled at this time, even low-normal at times HOLD HCTZ Continue Metoprolol and Diltiazem (9) Dementia: Plan: severe, advanced with superimposed delirium and agitation melatonin 3mg HS scheduled increase risperdal HS to 0.5mg (10) Hyperthyroidism: Plan: TSH wnl Continue Methimazole 5mg po qAM and 2.5mg po qPM (11) Hypokalemia: Plan: replace IV and PO repeat level am mag level wnl at 2 (12) Constipation: Plan: add senna daily Plan daughter updated this evening by phone extensively she commented "my mother has really gone downhill" we discussed her poor oral intake, delirium superimposed on dementia, etc will have to see how she does moving forward - if she continues to do poorly - hospice back at SNF?? change observation to full admission status Admission and Anticipated Discharge Date Admission Date: May 10, 2022 Subjective patient, despite receiving risperdal overnight, was restless and didn't sleep today - ate fair breakfast, very little lunch, and is taking little liquid in remains very confused - unable to have any meaningful conversation cannot give any ROS she points at things and says "look over there" and laughs inappropriately during our conversation no bowel movement by nursing staff report Review of Systems Review of Systems: Unobtainable due to cognitive status Physical Exam Physical Exam: gen - very confused, oriented to person only, NAD, restless, shifts about in the bed quite often head - laceration near L eye with sutures intact face - mild bruising left upper face only mouth - MMM neck - no JVD heart - irregular, s1 s2, no murmur lungs - CTA b/l abd - soft NT ND BS+; right lower quadrant abdominal wall - large hematoma - probably about 4 inches x 2-3 inches - nontender, freely movable ext - trace edema, pulses 2+ b/l musculo - b/l knees with scars from prior replacement; no effusions psych - oriented to person only neuro - moves all 4 limbs spontaneously Results & Data Results & [facility] ([facility]) Vital Signs (Past 12 Hours) Vital Signs Temp Pulse Resp BP BP Pulse Ox O2 Del Method 05/11/22 07:26 36.7 C 89 16 117/79 98 Room Air 05/10/22 23:11 36.9 C 92 H 18 121/79 97 Room Air Laboratory Results Laboratory Results - last 48 hr 05/08/22 05/09/22 05/10/22 22:38 07:12 08:07 WBC 8.48 RBC 4.29 Hgb 13.4 POC Hgb 14.3 Hct 38.7 POC Hct 42 MCV 90.2 MCH 31.2 MCHC 34.6 RDW Std Deviation 41.1 RDW Coeff of Curtis 12.5 Plt Count 211 MPV 11.4 POC Sodium 136 Sodium POC Potassium 3.7 Potassium POC Chloride 95 L Chloride Carbon Dioxide POC Total CO2 33 H Anion Gap POC Anion Gap 12.0 L POC BUN 23 H BUN Creatinine POC Creatinine 1.2 Est Cr Clr Drug Dosing Est GFR ( Amer) Est GFR (Non-Af Amer) BUN/Creatinine Ratio Glucose POC Glucose (other) 116 H Calcium POC Ioniz Calcium Siri 1.09 L Magnesium Total Creatine Kinase Vitamin B12 TSH 4.378 05/10/22 05/10/22 05/10/22 08:07 08:07 08:07 WBC RBC Hgb POC Hgb Hct POC Hct MCV MCH MCHC RDW Std Deviation RDW Coeff of Curtis Plt Count MPV POC Sodium Sodium 139 POC Potassium Potassium 2.9 L POC Chloride Chloride 98 Carbon Dioxide 29 POC Total CO2 Anion Gap 12 H POC Anion Gap POC BUN BUN 12 Creatinine 0.61 D POC Creatinine Est Cr Clr Drug Dosing 55.2 Est GFR ( Amer) 97.2 Est GFR (Non-Af Amer) 83.8 BUN/Creatinine Ratio 19.7 Glucose 103 H POC Glucose (other) Calcium 8.7 POC Ioniz Calcium Siri Magnesium 2.0 Total Creatine Kinase 383 H Vitamin B12 529 TSH PG Care Time/CCT Total # of Minutes Spent Total Time Spent with Patient: Total time spent is greater than 50% in coordination of care (as documented) at patient's floor/unit and/or counseling patient: Coding Level of Care Code 42998 Subseq Hosp Care Lvl 3 Diagnoses ICH (intracerebral hemorrhage) I61.9 Laceration of eyebrow, left S01.112A Encounter type: initial encounter Falls W19.XXXA Encounter type: initial encounter Contusion of back S20.229A Encounter type: initial encounter Laterality: unspecified laterality Abdominal wall contusion S30.1XXA Encounter type: initial encounter Asthma J45.909 Permanent atrial fibrillation I48.21 HTN (hypertension) I10 Dementia F03.90 Dementia type: unspecified type Hyperthyroidism E05.90 Hypokalemia E87.6 Constipation K59.00 (1) Laceration of eyebrow, left Encounter type: initial encounter Qualified Code(s): S01.112A - Laceration without foreign body of left eyelid and periocular area, initial encounter (2) Falls Encounter type: initial encounter Qualified Code(s): W19.XXXA - Unspecified fall, initial encounter (3) Contusion of back Encounter type: initial encounter Laterality: unspecified laterality Qualified Code(s): S20.229A - Contusion of unspecified back wall of thorax, initial encounter (4) Abdominal wall contusion Encounter type: initial encounter Qualified Code(s): S30.1XXA - Contusion of abdominal wall, initial encounter (5) Dementia Dementia type: unspecified type
[2022-05-11 08:12] LABS: Hematocrit (blood only) 35.9 % (34.1-44.9); Hemoglobin 12.2 g/dl (12.0-16.0); Mean Corpuscular Hemoglobin 31.5 pg (25.0-34.0); Mean Corpuscular Volume 92.8 fL (80.0-100.0); Mean Platelet Volume 10.8 fL (9.4-12.3); Platelet Count 217 K/uL (130-400); RDW Coefficient of Variation 12.7 % (11.5-14.5); RDW Standard Deviation 43.6 fL (36.4-46.3); Red Blood Count 3.87 M/uL (3.93-5.22); White Blood Count 7.06 K/ul (4.8-10.8)
[2022-05-11 08:36] LABS: BUN Creatinine Ratio 13.9 (10-20); Calcium 8.2 mg/dl (8.5-10.1); Creatinine Clr Calc Pharmacy 46.8 ml/min; Est GFR (African American) 89.8 ml/min; Est GFR (Non-African American) 77.4 ml/min; Potassium 3.3 mmol/L (3.5-5.1)
[2022-05-11] MEDS: dilTIAZem HCL 30 MG TAB PO SCH (08:45)
[2022-05-11] MEDS: methIMAzole 5 MG TABLET PO SCH ×2 (08:46→22:32)
[2022-05-11] MEDS: METOPROLOL TARTRATE 50 MG TAB PO SCH ×2 (08:46→22:31)
[2022-05-11] MEDS: busPIRone 7.5 MG TAB PO SCH ×3 (08:46→22:32)
[2022-05-11] MEDS: prednisoLONE acetate 1% OP SUSP 5 ML BTL OPL SCH ×3 (08:47→22:32)
[2022-05-11] MEDS: SERTRALINE HCL 100 MG TABLET PO SCH (08:47)
[2022-05-11] MEDS: POTASSIUM CHLORIDE PWD 20 MEQ PACK PO SCH ×2 (08:48→13:46)
[2022-05-11] MEDS: SENNA 8.6 MG TAB PO SCH (08:49)
[2022-05-11] MEDS: ANASTROZOLE 1 MG TAB PO SCH (09:08)
[2022-05-11] MEDS: THIAMINE HCL 200 MG in SODIUM CHLORIDE 0.9% 50 ML IV SCH ×2 (09:17→22:33)
[2022-05-11 15:52] LABS: Appearance Urine Cloudy (Clear); Bacteria Urine Automated 4+ (Negative); Bilirubin Urine Negative (Negative); Blood Urine 3+ (Negative); Color Urine Yellow; Epithelial Cell Urine Auto 0-5 /lpf (0-5); Glucose Urine UA Negative (Negative); Ketones Urine Trace (Negative); Leukocyte Esterase Urine 3+ (Negative); Nitrite Urine Negative (Negative); Protein Urine 1+ (Negative); RBC Urine Automated >30 /hpf (0-4); Specific Gravity Urine 1.015 (1.000-1.030); Urobilinogen Urine Positive (Negative); WBC Urine Automated >30 /hpf (0-5); pH Urine 6.5 (4.5-7.5)
--- NOTE | 2022-05-11 19:49 | Hospitalist Progress Note ---
Date of Service May 11, 2022 Assessment & Plan (1) ICH (intracerebral hemorrhage): Plan: 2nd to head trauma from fall in the setting of chronic anticoagulation use mild intra-ventricular hemorrhage and tiny SDH on serial CTs repeat head CT ON 05/10 unchanged and in 1 location is actually improved no signs of increased intracranial pressure cont close observation patient was able to tell me she has had no headache since 3 head CTs are stable can likely repeat another CT in 1-2 weeks for stability cont to remain off all anticoagulation and anti-platelet agents would keep off anticoagulation indefinitely - in light of advanced dementia risks outweigh benefits I spoke with pt's daughter -would like to get hospice involved (2) Laceration of eyebrow, left: Plan: s/p suture repair remove sutures in ~7 days local wound care (3) Falls: Plan: In the setting of advanced dementia, type of dementia is unknown, however according to the note last year patient at that time had mild dementia, given rapid progression of her dementia doubt this is Alzheimer's type B12 level wnl B1 level pending while awaiting B1 level place on empiric thiamine 200mg BID -Fall precautions -PT/OT evaluations CPK slightly elevated 2nd to fall - repeat CPK today stable (4) Contusion of back: (5) Abdominal wall contusion: Plan: CT abd/pelvis without internal injuries, retroperitoneal bleeding, etc CBC stable hematoma right side of abdominal wall - no surgical intervention cool compresses another 1-2 days then switch to heat to promote resolution keep off anticoagulation (6) Asthma: Plan: without exacerbation (7) Permanent atrial fibrillation: Plan: Rate controlled. On anticoagulation typically at baseline HOLD ELIQUIS 2nd #1 and #5 -Continue Diltiazem 30mg po qAM -Continue Metoprolol 50mg po BID (8) HTN (hypertension): Plan: Blood pressure adequately controlled at this time, even low-normal at times HOLD HCTZ Continue Metoprolol and Diltiazem (9) Dementia: Plan: severe, advanced with superimposed delirium and agitation melatonin 3mg HS scheduled increase risperdal HS to 0.5mg The patient is ready to be discharged, family requested hospice, pending placement (10) Hyperthyroidism: Plan: TSH wnl Continue Methimazole 5mg po qAM and 2.5mg po qPM (11) Hypokalemia: Plan: replace IV and PO repeat level am mag level wnl at 2 (12) Constipation: Plan: add senna daily Plan daughter updated this evening by phone extensively she commented "my mother has really gone downhill" we discussed her poor oral intake, delirium superimposed on dementia, etc will have to see how she does moving forward - if she continues to do poorly - hospice back at SNF?? change observation to full admission status Admission and Anticipated Discharge Date Admission Date: May 10, 2022 Subjective The patient presented to the hospital with recurrent fall, patient has several bruises on her body, patient suffers from advanced dementia to the point that she could not even recognize her sister, patient is taking Eliquis for atrial fibrillation , Images CT in ER showed patient has an ICH secondary to trauma and chronic use of anticoagulation with mild intraventricular hemorrhage and tiny subdural hematoma, follow-up CAT scan did not show any change, discussed with the daughter, who happened to be the POA, decision was made to discharge the patient to long-term care facility with hospice, will get piano case maker involved tomorrow Physical Exam Physical Exam: gen - very confused, oriented to person only, NAD, restless, shifts about in the bed quite often head - laceration near L eye with sutures intact face - mild bruising left upper face only mouth - MMM neck - no JVD heart - irregular, s1 s2, no murmur lungs - CTA b/l abd - soft NT ND BS+; right lower quadrant abdominal wall - large hematoma - probably about 4 inches x 2-3 inches - nontender, freely movable ext - trace edema, pulses 2+ b/l musculo - b/l knees with scars from prior replacement; no effusions psych - oriented to person only neuro - moves all 4 limbs spontaneously Results & Data Results & Data ([facility]) Vital Signs (Past 12 Hours) Vital Signs Temp Pulse Pulse Resp BP BP Pulse Ox 05/11/22 15:35 36.4 C L 84 16 114/70 97 05/11/22 08:39 97 H 126/82 O2 Del Method 05/11/22 15:35 Room Air 05/11/22 08:39 PG Care Time/CCT Total # of Minutes Spent Total Time Spent with Patient: Total time spent is greater than 50% in coordination of care (as documented) at patient's floor/unit and/or counseling patient: Coding Level of Care Code 09163 Subseq Hosp Care Lvl 2 Diagnoses ICH (intracerebral hemorrhage) I61.9 Laceration of eyebrow, left S01.112A Encounter type: initial encounter Falls W19.XXXA Encounter type: initial encounter Contusion of back S20.229A Encounter type: initial encounter Laterality: unspecified laterality Abdominal wall contusion S30.1XXA Encounter type: initial encounter Asthma J45.909 Permanent atrial fibrillation I48.21 HTN (hypertension) I10 Dementia F03.90 Dementia type: unspecified type Hyperthyroidism E05.90 Hypokalemia E87.6 Constipation K59.00 (1) Laceration of eyebrow, left Encounter type: initial encounter Qualified Code(s): S01.112A - Laceration without foreign body of left eyelid and periocular area, initial encounter (2) Falls Encounter type: initial encounter Qualified Code(s): W19.XXXA - Unspecified fall, initial encounter (3) Contusion of back Encounter type: initial encounter Laterality: unspecified laterality Qualified Code(s): S20.229A - Contusion of unspecified back wall of thorax, initial encounter (4) Abdominal wall contusion Encounter type: initial encounter Qualified Code(s): S30.1XXA - Contusion of abdominal wall, initial encounter (5) Dementia Dementia type: unspecified type
[2022-05-11] MEDS: MELATONIN 3 MG TAB PO SCH (22:32)
[2022-05-12] MEDS: busPIRone 7.5 MG TAB PO SCH ×3 (08:42→20:17)
[2022-05-12] MEDS: METOPROLOL TARTRATE 50 MG TAB PO SCH ×2 (08:42→20:17)
[2022-05-12] MEDS: SENNA 8.6 MG TAB PO SCH (08:43)
[2022-05-12] MEDS: methIMAzole 5 MG TABLET PO SCH ×2 (08:43→20:17)
[2022-05-12] MEDS: prednisoLONE acetate 1% OP SUSP 5 ML BTL OPL SCH ×3 (08:44→20:20)
[2022-05-12] MEDS: SERTRALINE HCL 100 MG TABLET PO SCH (08:44)
[2022-05-12] MEDS: dilTIAZem HCL 30 MG TAB PO SCH (08:44)
[2022-05-12] MEDS: ANASTROZOLE 1 MG TAB PO SCH (08:44)
[2022-05-12] MEDS: THIAMINE HCL 200 MG in SODIUM CHLORIDE 0.9% 50 ML IV SCH ×2 (09:01→21:22)
[2022-05-12] MEDS: risperiDONE ODT 0.5 MG SOLTAB PO PRN (16:38)
--- NOTE | 2022-05-12 19:06 | Hospitalist Progress Note ---
Date of Service May 12, 2022 Assessment & Plan (1) ICH (intracerebral hemorrhage): Plan: 2nd to head trauma from fall in the setting of chronic anticoagulation use mild intra-ventricular hemorrhage and tiny SDH on serial CTs repeat head CT ON 05/10 unchanged and in 1 location is actually improved no signs of increased intracranial pressure cont to remain off all anticoagulation and anti-platelet agents would keep off anticoagulation indefinitely - in light of advanced dementia risks outweigh benefits I spoke with pt's daughter -would like to get hospice involved, discussed with the case management director pending placement (2) Laceration of eyebrow, left: Plan: s/p suture repair remove sutures in ~7 days after admission local wound care (3) Falls: Plan: In the setting of advanced dementia, type of dementia is unknown, however according to the note last year patient at that time had mild dementia, given rapid progression of her dementia doubt this is Alzheimer's type B12 level wnl -Fall precautions -PT/OT evaluations CPK slightly elevated 2nd to fall - repeat CPK today stable (4) Contusion of back: (5) Abdominal wall contusion: Plan: CT abd/pelvis without internal injuries, retroperitoneal bleeding, etc CBC stable hematoma right side of abdominal wall - no surgical intervention keep off anticoagulation (6) Asthma: Plan: without exacerbation (7) Permanent atrial fibrillation: Plan: Rate controlled. On anticoagulation typically at baseline HOLD ELIQUIS 2nd #1 and #5 -Continue Diltiazem 30mg po qAM -Continue Metoprolol 50mg po BID (8) HTN (hypertension): Plan: Blood pressure adequately controlled at this time, even low-normal at times HOLD HCTZ Continue Metoprolol and Diltiazem (9) Dementia: Plan: severe, advanced with superimposed delirium and agitation melatonin 3mg HS scheduled increase risperdal HS to 0.5mg The patient is ready to be discharged, family requested hospice, pending placement (10) Hyperthyroidism: Plan: TSH wnl Continue Methimazole 5mg po qAM and 2.5mg po qPM (11) Hypokalemia: Plan: replace IV and PO repeat level am mag level wnl at 2 (12) Constipation: Plan: add senna daily Plan daughter updated this evening by phone extensively she commented "my mother has really gone downhill" we discussed her poor oral intake, delirium superimposed on dementia, etc will have to see how she does moving forward - if she continues to do poorly - hospice back at SNF?? change observation to full admission status Admission and Anticipated Discharge Date Admission Date: May 10, 2022 Subjective Advanced dementia with intracranial hemorrhage, pending placement, discussed with the case Physical Exam Physical Exam: gen - very confused, oriented to person only, NAD, restless, shifts about in the bed quite often head - laceration near L eye with sutures intact face - mild bruising left upper face only mouth - MMM neck - no JVD heart - irregular, s1 s2, no murmur lungs - CTA b/l abd - soft NT ND BS+; right lower quadrant abdominal wall - large hematoma - probably about 4 inches x 2-3 inches - nontender, freely movable ext - trace edema, pulses 2+ b/l musculo - b/l knees with scars from prior replacement; no effusions psych - oriented to person only neuro - moves all 4 limbs spontaneously Results & Data Results & Data ([facility]) Vital Signs (Past 12 Hours) Vital Signs Temp Pulse Resp BP Pulse Ox O2 Del Method 05/12/22 14:45 36.8 C 90 18 118/86 99 Room Air 05/12/22 08:51 Room Air PG Care Time/CCT Total # of Minutes Spent Total Time Spent with Patient: Total time spent is greater than 50% in coordination of care (as documented) at patient's floor/unit and/or counseling patient: Coding Level of Care Code 25730 Subseq Hosp Care Lvl 1 Diagnoses ICH (intracerebral hemorrhage) I61.9 Laceration of eyebrow, left S01.112A Encounter type: initial encounter Falls W19.XXXA Encounter type: initial encounter Contusion of back S20.229A Encounter type: initial encounter Laterality: unspecified laterality Abdominal wall contusion S30.1XXA Encounter type: initial encounter Asthma J45.909 Permanent atrial fibrillation I48.21 HTN (hypertension) I10 Dementia F03.90 Dementia type: unspecified type Hyperthyroidism E05.90 Hypokalemia E87.6 Constipation K59.00 (1) Laceration of eyebrow, left Encounter type: initial encounter Qualified Code(s): S01.112A - Laceration without foreign body of left eyelid and periocular area, initial encounter (2) Falls Encounter type: initial encounter Qualified Code(s): W19.XXXA - Unspecified fall, initial encounter (3) Contusion of back Encounter type: initial encounter Laterality: unspecified laterality Qualified Code(s): S20.229A - Contusion of unspecified back wall of thorax, initial encounter (4) Abdominal wall contusion Encounter type: initial encounter Qualified Code(s): S30.1XXA - Contusion of abdominal wall, initial encounter (5) Dementia Dementia type: unspecified type
[2022-05-12] MEDS: MELATONIN 3 MG TAB PO SCH (20:20)
[2022-05-13] MEDS: THIAMINE HCL 200 MG in SODIUM CHLORIDE 0.9% 50 ML IV SCH (07:31)
[2022-05-13] MEDS: ANASTROZOLE 1 MG TAB PO SCH (08:29)
[2022-05-13] MEDS: methIMAzole 5 MG TABLET PO SCH (08:30)
[2022-05-13] MEDS: prednisoLONE acetate 1% OP SUSP 5 ML BTL OPL SCH (08:30)
[2022-05-13] MEDS: SENNA 8.6 MG TAB PO SCH (08:30)
[2022-05-13] MEDS: SERTRALINE HCL 100 MG TABLET PO SCH (08:30)
[2022-05-13] MEDS: METOPROLOL TARTRATE 50 MG TAB PO SCH (08:30)
[2022-05-13] MEDS: busPIRone 7.5 MG TAB PO SCH (08:30)
[2022-05-13] MEDS: dilTIAZem HCL 30 MG TAB PO SCH (08:30)
--- NOTE | 2022-05-13 11:59 | Discharge Summary ---
Date of Service May 13, 2022 Admission HPI Per Admitting Provider Alissa Ernst is an 81yo female with history of Atrial Fibrillation on Eliquis anticoagulation presenting from [facility] following an unwitnessed fall. Daughter is at bedside and provides history as patient with dementia - does not recall the events prior to arrival. Patient has reportedly had several falls over the last 2 days. She was found down in her room prior to coming here. She has bruising on her anterior abdomen and back. Patient does not recall falling. She denies pain - denies CP, cough, SOB or palpitations. No additional complaints at this time. In the ER she is afebrile, HD stable, NAD. Principal Diagnosis Intracranial hemorrhage due to recurrent fall ambulatory dysfunction and using anticoagulation Discharge Exam gen - very confused, oriented to person only, NAD, restless, shifts about in the bed quite often head - laceration near L eye with sutures intact face - mild bruising left upper face only mouth - MMM neck - no JVD heart - irregular, s1 s2, no murmur lungs - CTA b/l abd - soft NT ND BS+; right lower quadrant abdominal wall - large hematoma - probably about 4 inches x 2-3 inches - nontender, freely movable ext - trace edema, pulses 2+ b/l musculo - b/l knees with scars from prior replacement; no effusions psych - oriented to person only neuro - moves all 4 limbs spontaneously Discharge Data Allergies Allergy/AdvReac Type Severity Reaction Status Date / Time banana Allergy Intermediate Hives Verified 02/15/22 11:19 celecoxib Allergy Intermediate HIVES Verified 02/15/22 11:19 grape Allergy Intermediate Hives Verified 02/15/22 11:19 Penicillins Allergy Intermediate HIVES Verified 02/15/22 11:19 Consultations 05/09/22 01:01 ED Decision to Admit Stat 05/11/22 14:30 Consult Palliative Care Routine Ordered Studies 05/08/22 22:26 CT abd pelvis IV con only Stat CT cervical spine wo con Stat CT chest diagnostic w con Stat CT head/brain wo con Stat 05/09/22 12:00 CT head/brain wo con Urgent 05/10/22 13:00 CT head/brain wo con Routine Hospital Course (1) ICH (intracerebral hemorrhage): 2nd to head trauma from fall in the setting of chronic anticoagulation use mild intra-ventricular hemorrhage and tiny SDH on serial CTs repeat head CT ON 05/10 unchanged and in 1 location is actually improved no signs of increased intracranial pressure cont to remain off all anticoagulation and anti-platelet agents would keep off anticoagulation indefinitely - in light of advanced dementia risks outweigh benefits I spoke with pt's daughter -would like to get hospice involved, discussed with the case worker patient will be back to her facility with hospice is (2) Laceration of eyebrow, left: s/p suture repair remove sutures in ~7 days after admission date sutures needs to be removed local wound care (3) Falls: In the setting of advanced dementia, type of dementia is unknown, however according to the note last year patient at that time had mild dementia, given rapid progression of her dementia doubt this is Alzheimer's type B12 level wnl -Fall precautions -PT/OT evaluations CPK slightly elevated 2nd to fall - repeat CPK today stable (4) Contusion of back: (5) Abdominal wall contusion: CT abd/pelvis without internal injuries, retroperitoneal bleeding, etc CBC stable hematoma right side of abdominal wall - no surgical intervention keep off anticoagulation (6) Asthma: without exacerbation (7) Permanent atrial fibrillation: Rate controlled. On anticoagulation typically at baseline HOLD ELIQUIS 2nd #1 and #5 -Continue Diltiazem 30mg po qAM -Continue Metoprolol 50mg po BID (8) HTN (hypertension): Blood pressure adequately controlled at this time, even low-normal at times HOLD HCTZ Continue Metoprolol and Diltiazem (9) Dementia: severe, advanced with superimposed delirium and agitation melatonin 3mg HS scheduled increase risperdal HS to 0.5mg The patient is ready to be discharged, family requested hospice, discharged with hospice (10) Hyperthyroidism: TSH wnl Continue Methimazole 5mg po qAM and 2.5mg po qPM (11) Hypokalemia: replace IV and PO repeat level am mag level wnl at 2 (12) Constipation: add senna daily Plan Came back to their facility with hospice Total Time Total Time Spent Total Time Spent (In Minutes): 45 Discharge Plan Discharge Items Patient Disposition: Hospice - Medical Facility Reason For Visit: ICH Discharge Diagnosis: Advanced dementia, intracranial hemorrhage Activity: Resume your previous activity Lifting: Gradually increase as tolerated Exercise/Sports: Gradually increase as tolerated Weightbearing: Full weightbearing Non-emergency contact: Primary Care Provider Call non-emergency contact if: your symptoms worsen Follow-up/Referrals: Char Chow CRNP [Primary Care Provider] - Diet: Heart Healthy Addtl Attending Provider Instructions: Patient is diagnosed with rapidly progressive advanced dementia type of dementia is unknown, patient had a small intracranial hemorrhage, discussed with family due to patient age and multiple comorbidities including advanced age and dementia patient will go back to her facility with Pending Studies at Discharge: No Stand-Alone Forms: My [facility] Skilled Items Patient informed of condition?: Yes DNR: Yes Discharge Level of Care: Skilled Communicable Disease: No Discharge Prognosis: Deteriorating Lines: None Urinary Catheter: No Medications and DC Order Prescriptions: New melatonin 3 mg Tablet 3 mg PO HS Qty: 30 0RF Continued alendronate 35 mg tablet 35 mg PO WK Label Comments: Patient states she doesnt know when she took her meds last Rx Instructions: take this med every Monday nystatin-triamcinolone 100,000-0.1 unit/g-% cream 1 applic TOPICAL BID PRN (Reason: dermatitis) methimazole 5 mg tablet 2.5 mg PO QPM Rx Instructions: TAKE 1/2 TAB @1999 anastrozole 1 mg Tablet 1 mg PO QAM solifenacin [Vesicare] 5 mg Tablet 5 mg PO HS metoprolol tartrate 50 mg tablet 50 mg PO BID diltiazem HCl [Cardizem] 30 mg tablet 30 mg PO QAM acetaminophen 325 mg Tablet 650 mg PO Q4H MDD 3g PRN (Reason: Fever Or Pain) buspirone 7.5 mg tablet 7.5 mg PO TID fluorometholone 0.1 % Drops,Suspension 1 drp OPR QAM methimazole 5 mg tablet 5 mg PO QAM prednisolone acetate 1 % drops,suspension 1 drp OPL TID sertraline 100 mg tablet 100 mg PO DAILY tramadol 50 mg tablet 50 mg PO Q6H PRN (Reason: Pain) food supplemt, lactose-reduced Liquid 1 ea PO TID Rx Instructions: nutritional supplement Discontinued clindamycin HCl 300 mg capsule 600 mg PO DAILY PRN (Reason: dental appointments) Rx Instructions: TAKE 1 HR BEFORE DENTAL APPT. triamterene-hydrochlorothiazid 37.5-25 mg tablet 1 tab PO QAM Eliquis 5 mg Tablet 5 mg PO BID Discharge Orders: Discharge Order (Routine); Ordered 05/13/22 Ordered By: Oli Zazueta Admission Data Admit Date/Time: 05/10/22 19:49 Attending Provider: Oli Zazueta Admit Provider: Kami Fernandes Primary Care Provider: Char Chow Other Providers: Kami Fernandes ; Marco Antonio Lundy ; Giuliana Culver ; Turner Mak [facility] Coding Level of Care Code D/C DAY MANAGEMENT >30 MINS Diagnoses ICH (intracerebral hemorrhage) I61.9 Laceration of eyebrow, left S01.112A Encounter type: initial encounter Falls W19.XXXA Encounter type: initial encounter Contusion of back S20.229A Encounter type: initial encounter Laterality: unspecified laterality Abdominal wall contusion S30.1XXA Encounter type: initial encounter Asthma J45.909 Permanent atrial fibrillation I48.21 HTN (hypertension) I10 Dementia F03.90 Dementia type: unspecified type Hyperthyroidism E05.90 Hypokalemia E87.6 Constipation K59.00
== END 2022-05-13 12:22 | disposition hospice, inpatient (51) | DRG 83 ==
LOC: ED 21:45 → 3E 21:45 → SUATTDRO 05-09 01:24 → 3E 05-09 02:36 → SUATTDRO 05-10 19:49
DX: T45.515A Adverse effect of anticoagulants, initial encounter; S06.369A Traumatic hemorrhage of cerebrum, unspecified, with loss of consciousness of unspecified duration, initial encounter; S20.229A Contusion of unspecified back wall of thorax, initial encounter; F05 Delirium due to known physiological condition; E05.90 Thyrotoxicosis, unspecified without thyrotoxic crisis or storm; I11.0 Hypertensive heart disease with heart failure; J45.909 Unspecified asthma, uncomplicated; Z88.0 Allergy status to penicillin; S30.1XXA Contusion of abdominal wall, initial encounter; Z96.653 Presence of artificial knee joint, bilateral; Y92.89 Other specified places as the place of occurrence of the external cause; S80.01XA Contusion of right knee, initial encounter; Z66 Do not resuscitate; R29.6 Repeated falls; F03.90 Unspecified dementia, unspecified severity, without behavioral disturbance, psychotic disturbance, mood disturbance, and anxiety; Z79.01 Long term (current) use of anticoagulants; S80.02XA Contusion of left knee, initial encounter; Z51.5 Encounter for palliative care; K59.00 Constipation, unspecified; I50.9 Heart failure, unspecified; W18.39XA Other fall on same level, initial encounter; E87.6 Hypokalemia; I48.21 Permanent atrial fibrillation; S01.112A Laceration without foreign body of left eyelid and periocular area, initial encounter; D68.32 Hemorrhagic disorder due to extrinsic circulating anticoagulants